=== PATIENT | female | born 1945 | race Caucasian/White ===

== ENCOUNTER 2021-01-03 10:25 | Outpatient (REF) | payer MEDICARE, SELFPAY ==
[2021-01-03 11:12] LABS: MANUAL DIFF FLAG NO
[2021-01-03 11:22] LABS: Basophils Percent Auto 0.6 % (0-2); Eosinophils Absolute Auto 0.1 X10*3/uL (0.0-0.4); Eosinophils Percent Auto 1.5 % (0-4); Hematocrit 41.6 % (37-47); Hemoglobin 13.8 g/dl (12.0-16.0); Imm Gran Abs Auto 0.02 X10*3/uL (0.00-0.03); Imm Gran Pct Auto 0.4 % (0.0-0.4); Lymphocytes Absolute Auto 0.9 X10*3/uL (1.2-4.9); Lymphocytes Percent Auto 18.9 % (20-40); Mean Corpuscular HGB Conc 33.2 g/dl (31.0-35.0); Mean Corpuscular Hemoglobin 31.5 pg (27.0-33.0); Mean Platelet Volume 11.3 fL (9.4-12.3); Monocytes Absolute Auto 0.4 X10*3/uL (0.1-1.2); Monocytes Percent Auto 8.1 % (2-11); Neutrophils Absolute Auto 3.4 X10*3/uL (2.0-8.3); Neutrophils Percent Auto 70.5 % (45-73); Platelet Count 158 X10*3/uL (160-400); Red Blood Count 4.38 X10*6/uL (4.20-5.50); Red Cell Distribution Width 12.5 % (11.0-16.0); White Blood Count 4.8 X10*3/uL (4.8-10.8)
[2021-01-03 12:16] LABS: Thyroid Stimulating Hormone 1.17 uIU/mL (0.32-4.0); Vitamin D 25-OH Total 31.3 ng/mL (>30)
[2021-01-03 12:25] LABS: Alanine Aminotransferase 19 U/L (0-31); Albumin Level 4.4 g/dL (3.5-5.0); Alkaline Phosphatase 66 U/L (39-117); Anion Gap 15 (12-20); Aspartate Amino Transferase 25 U/L (5-31); Bilirubin Total 0.8 mg/dL (0.0-1.0); Blood Urea Nitrogen 15 mg/dL (9-16); Calcium 9.3 mg/dL (8.4-10.2); Carbon Dioxide 26 mmol/L (22-29); Chloride 107 mmol/L (96-108); Cholesterol 197 mg/dL; Estimated Glomerular Filt Rate 45; Glucose Random 101 mg/dL (60-115); HDL Cholesterol 57 mg/dL; LDL Cholesterol Calculated 111 mg/dl; Potassium 4.7 mmol/L (3.3-5.1); Sodium 143 mmol/L (135-145); Triglycerides 147 mg/dL
[2021-01-03 12:35] LABS: Folate 16.4 ng/mL (> or = 4.0); Vitamin B12 948 pg/mL (200-900)
== END 2021-01-03 10:26 | disposition home or self-care (01) ==
LOC: HO.LAB 10:25
PROVIDERS: PCP Internal Medicine; Visit Provider Internal Medicine
DX: E78.00 Pure hypercholesterolemia, unspecified (principal)
CPT/HCPCS: 36415; 80053; 80061; 82306; 82607; 82746; 84443; 85025

== ENCOUNTER 2021-12-14 10:11 | Outpatient (REF) | payer MEDICARE, SELFPAY ==
[2021-12-14 10:43] LABS: MANUAL DIFF FLAG NO
[2021-12-14 10:58] LABS: Basophils Percent Auto 0.6 % (0-2); Eosinophils Absolute Auto 0.1 X10*3/uL (0.0-0.4); Eosinophils Percent Auto 1.9 % (0-4); Hematocrit 43.9 % (37.0-47.0); Hemoglobin 14.4 g/dl (12.0-16.0); Imm Gran Abs Auto 0.01 X10*3/uL (0.00-0.03); Imm Gran Pct Auto 0.2 % (0.0-0.4); Lymphocytes Absolute Auto 1.1 X10*3/uL (1.2-4.9); Lymphocytes Percent Auto 23.3 % (20-40); Mean Corpuscular HGB Conc 32.8 g/dl (31.0-35.0); Mean Corpuscular Volume 94.4 fL (80.0-98.0); Mean Platelet Volume 11.3 fL (9.4-12.3); Monocytes Absolute Auto 0.4 X10*3/uL (0.1-1.2); Monocytes Percent Auto 7.4 % (2-11); Neutrophils Absolute Auto 3.2 x10*3/uL (2.0-8.3); Neutrophils Percent Auto 66.6 % (45-73); Platelet Count 152 X10*3/uL (160-400); Red Blood Count 4.65 X10*6/uL (4.20-5.50); Red Cell Distribution Width 12.5 % (11.0-16.0); White Blood Count 4.8 X10*3/uL (4.8-10.8)
[2021-12-14 11:40] LABS: Estimated Average Glucose 123 mg/dL; Hemoglobin A1c % 5.9 %
[2021-12-14 12:01] LABS: Alanine Aminotransferase 22 U/L (0-31); Albumin Level 4.5 g/dL (3.5-5.0); Alkaline Phosphatase 66 U/L (39-117); Anion Gap 11 (12-20); Aspartate Amino Transferase 18 U/L (5-31); Bilirubin Total 0.8 mg/dL (0.0-1.0); Blood Urea Nitrogen 22 mg/dL (9-16); Calcium 10.2 mg/dL (8.4-10.2); Carbon Dioxide 30 mmol/L (22-29); Chloride 106 mmol/L (96-108); Cholesterol 206 mg/dL; Estimated Glomerular Filt Rate 43; Glucose Random 110 mg/dL (60-115); HDL Cholesterol 50 mg/dL; LDL Cholesterol Calculated 125 mg/dl; Magnesium 2.2 mg/dL (1.6-2.6); Potassium 5.3 mmol/L (3.3-5.1); Sodium 142 mmol/L (135-145); Triglycerides 159 mg/dL
[2021-12-14 12:26] LABS: Folate 16.6 ng/mL (> or = 4.0); Thyroid Stimulating Hormone 1.74 uIU/mL (0.32-4.0); Vitamin B12 581 pg/mL (200-900); Vitamin D 25-OH Total 36.2 ng/mL (>30)
== END 2021-12-14 10:12 | disposition home or self-care (01) ==
LOC: HO.LAB 10:11
PROVIDERS: PCP Internal Medicine; Visit Provider Internal Medicine
DX: E78.00 Pure hypercholesterolemia, unspecified (principal); R73.02 Impaired glucose tolerance (oral)
CPT/HCPCS: 36415; 80053; 80061; 82306; 82607; 82746; 83036; 83735; 84439; 84443; 85025

== ENCOUNTER 2021-12-20 12:56 | Outpatient (REF) | payer MEDICARE, SELFPAY ==
--- NOTE | ~2021-12-20 | MM_ITS ---
EXAMINATION: MM SCREENING DIGITAL BREAST TOMOSYNTHESIS, BILATERAL CLINICAL INFORMATION: Screening. Asymptomatic. The lifetime risk of breast cancer based on the Tyrer-Cuzick Model is 2%. COMPARISON: Mammography: 06/17/2020 and studies dating back to 09/18/2012 TECHNIQUE: Digital mammography is performed in craniocaudal and mediolateral oblique views along with computer-aided detection (CAD). Digital breast tomosynthesis is performed in implant-displaced craniocaudal and implant-displaced mediolateral oblique views along with computer-aided detection (CAD). Synthesized 2D images are generated from the tomosynthesis. FINDINGS: There are scattered areas of fibroglandular density (ACR BI-RADS breast composition Category b). The patient is status post bilateral silicon implant placement. Within the superior aspect of the left breast on mediolateral oblique view only, there is a 5 mm density which is more prominent than on prior studies and for which spot compression view and possible ultrasound is recommended. There remains lobular contour to the breast implants with some capsular calcification present. The anteromedial lobulation is larger than on prior study. Possible extracapsular rupture not excluded. MM/MM tomosynthesis screen imp BI IMPRESSION: Left breast density for further evaluation with spot compression view and possible ultrasound. Contour lobulation of breast implants as described. ASSESSMENT: BI-RADS 0: Incomplete - Need Additional Imaging Evaluation RECOMMENDATION: 1. Additional views of the left breast. 2. Targeted ultrasound if warranted after review of the additional views. 3. Radiology department staff will contact the patient for additional imaging. This patient's information was entered into a reminder system with a target due date for their next mammogram.
== END 2021-12-20 12:57 | disposition home or self-care (01) ==
LOC: HO.MAMMO 12:56
PROVIDERS: PCP Internal Medicine; Visit Provider Internal Medicine
DX: Z12.31 Encounter for screening mammogram for malignant neoplasm of breast (principal)
CPT/HCPCS: 77063; 77067

== ENCOUNTER 2022-01-03 08:55 | Outpatient (REF) | payer MEDICARE, SELFPAY ==
--- NOTE | ~2022-01-03 | MM_ITS ---
EXAMINATION: MM DIAGNOSTIC DIGITAL BREAST TOMOSYNTHESIS, LEFT US DIAGNOSTIC ULTRASOUND BREAST, LEFT CLINICAL INFORMATION: Recall from screening for question of asymmetric density upper left breast on implant displaced MLO view. Implants present for over 30 years. COMPARISON: Mammography: 12/20/2021 and prior exams dating back to 02/22/2010. TECHNIQUE: Digital breast tomosynthesis is performed. 2D images are generated from the tomosynthesis. The following views are obtained: Implant displaced left spot MLO x2, implant displaced left ML. Ultrasound left breast is targeted to the upper breast using grayscale imaging and color Doppler. Additional scanning also performed anteriorly over the implant. Grayscale imaging and color Doppler are performed without and with harmonics. FINDINGS: There are scattered areas of fibroglandular density (ACR BI-RADS breast composition Category b). The additional views show fibroglandular density mid upper breast similar to some of the prior exams given the variability from year to year based on positioning. There is no definite developing density or interval new mass or architectural change in the area for recall. Ultrasound demonstrates nonspecific small smooth oval isoechoic nodule overlying implant 1:00 position 7 cm from nipple and measuring 0.7 x 0.4 x 0.6 cm. The shape does not appear to be consistent with the finding for recall. This may represent a small fibroadenoma. Otherwise, there is no cystic or solid mass and no architectural abnormality. No free silicone appreciated by ultrasound. Results are discussed with the patient at time of visit. MM/MM tomosynthesis added views L IMPRESSION: -Parenchymal asymmetry upper left breast similar to prior remote mammography. No definite developing density or interval change. -Benign-appearing circumscribed small oval nodule overlying implant 1:00 position measuring under 1 cm, possibly small fibroadenoma. ASSESSMENT: BI-RADS 3: Probably Benign RECOMMENDATION: 1. Diagnostic left mammography and targeted left breast ultrasound in 6 months. 2. Comment: The recent screening mammography also notes increased lobulated contour left anterior medial implant. Possibility of extracapsular rupture cannot be excluded. If clinically indicated, implant integrity could be further assessed with breast MRI. This patient's information was entered into a reminder system with a target due date for their next mammogram.
== END 2022-01-03 08:56 | disposition home or self-care (01) ==
LOC: HO.MAMMO 08:55
PROVIDERS: PCP Internal Medicine; Visit Provider Internal Medicine
DX: R92.2 Inconclusive mammogram (principal)
CPT/HCPCS: 76642; 77061; 77065

== ENCOUNTER 2022-01-04 16:19 | Emergency (ER) | payer MEDICARE, SELFPAY ==
--- NOTE | ~2022-01-04 | CT_ITS ---
EXAMINATION: CT ABDOMEN AND PELVIS WITH CONTRAST CLINICAL INFORMATION: Right lower quadrant abdominal pain with rebound tenderness. Rule out appendicitis. COMPARISON: CT from 04/05/2007 TECHNIQUE: Multidetector volumetric images were obtained from the superior aspect of the liver through the pubic symphysis following administration 85 mL of Omnipaque 350 intravenous contrast. Sagittal and coronal reformatted images were obtained on the technologist's workstation. Oral contrast: No This CT examination was performed using dose optimization techniques as appropriate, variously including the following: *Automated exposure control *Adjustment of mA and/or kV according to patient size (this includes techniques or standardized protocols for targeted exams where dose is matched to indication/reason for exam; i.e. extremities or head) *Use of iterative reconstruction technique DLP: 505 mGy-cm FINDINGS: LUNG BASES: The lung bases are clear. Partially visualized left-sided breast implant with peripheral calcification. LIVER, GALLBLADDER, AND BILIARY TREE: The liver is normal in size, shape, and attenuation. No focal hepatic lesion or biliary ductal dilatation is present. The gallbladder is unremarkable with no evidence of radiopaque gallstones, gallbladder wall thickening, or obvious pericholecystic inflammatory changes. PANCREAS: Unremarkable. SPLEEN: Unremarkable. ADRENAL GLANDS: Unremarkable. KIDNEYS AND URETERS: The kidneys are normal in size, shape, and attenuation. No hydronephrosis, hydroureter, or calculi seen. No perinephric stranding. BLADDER: Unremarkable. GASTROINTESTINAL TRACT: Decompressed stomach. Possible small diverticulum at the gastric fundus. Normal caliber of the small bowel. There is no obstruction. Distal colonic anastomosis noted. Scattered colonic diverticulosis. There is a prominent diverticulum of the ascending colon. Focal wall thickening seen with surrounding inflammatory changes of the fat. There is a normal appendix. No free air. No fluid collection. ABDOMINAL WALL: No significant hernia is appreciated. LYMPH NODES: Normal. VASCULAR: Normal caliber aorta with mild atherosclerotic calcification. PELVIC VISCERA: No acute or suspicious osseous abnormality. Degenerative changes throughout the spine. Vacuum disc phenomenon at multiple levels. OSSEOUS STRUCTURES: No acute or suspicious osseous abnormality. Degenerative changes of the spine. CT/CT abdomen pelvis w con IMPRESSION: Acute diverticulitis involving the ascending colon. No free air or fluid collection. Normal appendix. Fleischner guidelines were followed.
[2022-01-04 17:24] VITALS: BP 135/78; PULSE 92; RESP 18; TEMP 37.2; O2SAT 97; BMI 21.1
[2022-01-04 17:44] LABS: MANUAL DIFF FLAG NO
[2022-01-04 17:46] LABS: Basophils Percent Auto 0.2 % (0-2); Eosinophils Absolute Auto 0.1 X10*3/uL (0.0-0.4); Eosinophils Percent Auto 0.5 % (0-4); Hemoglobin 13.2 g/dl (12.0-16.0); Imm Gran Abs Auto 0.02 X10*3/uL (0.00-0.03); Imm Gran Pct Auto 0.2 % (0.0-0.4); Lymphocytes Percent Auto 10.8 % (20-40); Mean Corpuscular Hemoglobin 30.8 pg (27.0-33.0); Mean Corpuscular Volume 93.5 fL (80.0-98.0); Monocytes Absolute Auto 0.7 X10*3/uL (0.1-1.2); Monocytes Percent Auto 6.9 % (2-11); Neutrophils Absolute Auto 7.8 x10*3/uL (2.0-8.3); Neutrophils Percent Auto 81.4 % (45-73); Platelet Count 143 X10*3/uL (160-400); Red Blood Count 4.28 X10*6/uL (4.20-5.50); Red Cell Distribution Width 12.8 % (11.0-16.0); White Blood Count 9.6 X10*3/uL (4.8-10.8)
--- NOTE | 2022-01-04 18:02 | ED_ITS ---
HPI - Abdominal Pain General Chief Complaint: Abdominal Pain <SHELLEY Roque Last Filed: 01/04/22 18:50> Stated Complaint: abd pain/fever <SHELLEY Roque Last Filed: 01/04/22 18:50> Time Seen by Provider: 01/04/22 17:52 <SHELLEY Roque Last Filed: 01/04/22 18:50> Source: patient <SHELLEY Roque Last Filed: 01/04/22 18:50> Mode of arrival: ambulatory <SHELLEY Roque Last Filed: 01/04/22 18:50> Limitations: no limitations <SHELLEY Roque Last Filed: 01/04/22 18:50> History of Present Illness HPI narrative: 76-year-old female with a past medical history of anxiety, diverticulosis s/p colectomy, HLD, OA, presenting to the ED complaining of RLQ abdominal pain x2 days. States pain worse with palpation, movement, and deep breathing. Also reports low-grade fever to 100 today. Denies chills, nausea, vomiting, diarrhea, dysuria, hematuria, flank pain <SHELLEY Roque Last Filed: 01/04/22 18:50> MD elicited complaint: abdominal pain <SHELELY Roque Last Filed: 01/04/22 18:50> Pertinent past history: none <SHELLEY Roque Last Filed: 01/04/22 18:50> Onset (ago): day(s) <SHELLEY Roque Last Filed: 01/04/22 18:50> Related Data Home Medications: Home Medications Medication Instructions Recorded Confirmed cholecalciferol (vitamin D3) 25 25 mcg PO DAILY 07/18/20 12/25/21 mcg (1,000 unit) capsule coenzyme Q10 200 mg capsule (Co 200 mg PO DAILY 07/18/20 12/25/21 Q-10) lactobacillus combination no.4 3 3,000 mmu cells PO DAILY 06/26/21 12/25/21 billion cell capsule (Probiotic) magnesium oxide,aspartate,citr mg PO 06/26/21 12/25/21 Previous Rx's Medication Instructions Recorded alprazolam 0.25 mg tablet (Xanax) 0.25 mg PO DAILY PRN 90 Days #60 12/25/21 tab pravastatin 10 mg tablet 10 mg PO DAILY #90 cap 12/25/21 levofloxacin 750 mg tablet 750 mg PO DAILY 7 Days #7 tab 01/04/22 metronidazole 500 mg tablet 500 mg PO TID 7 Days #21 tab 01/04/22 <SHELLEY Roque - Last Filed: 01/04/22 18:50> Allergies/Adverse Reactions: Allergies Allergy/AdvReac Type Severity Reaction Status Date / Time atorvastatin [Lipitor] Allergy Unknown Unknown Verified 12/25/21 11:03 clarithromycin [From Biaxin] Allergy Unknown Unknown Verified 12/25/21 11:03 doxycycline Allergy Unknown rash, Verified 12/25/21 11:03 vision changes erythromycin base Allergy Unknown Unknown Verified 12/25/21 11:03 influenza virus vaccine tvs Allergy Unknown vomitting Verified 12/25/21 11:03 [id number](65 years up) [From Fluzone High-Dose 2017- (PF)] moxifloxacin [Avelox] Allergy Unknown Unknown Verified 12/25/21 11:03 omeprazole [Prilosec] Allergy Unknown Unknown Verified 12/25/21 11:03 scalp rx Penicillins Allergy Unknown UNKNOWN Verified 12/25/21 11:03 simvastatin Allergy Unknown Unknown Verified 12/25/21 11:03 Sulfa (Sulfonamide Allergy Unknown SWELLING Verified 12/25/21 11:03 Antibiotics) <SHELLEY Roque - Last Filed: 01/04/22 18:50> Review of Systems Review of Systems Constitutional: No Fever, No Chills, No Fatigue, No Malaise ENT/Mouth: No Ear Pain, No Nasal Congestion, No sore throat, No Rhinorrhea, No Swallowing Difficulty Eyes: No Eye Pain, No Swelling, No Redness Cardiovascular: No Chest Pain, No SOB, No Edema, No Palpitations Respiratory: No Cough, No Sputum, No Dyspnea Gastrointestinal: No Nausea, No Vomiting, No Diarrhea, No Constipation, + Abdominal pain Genitourinary: No irregular bleeding, No Dysuria, No Urinary Frequency, No Hematuria, No Urgency, No Flank Pain, No Urinary Flow Changes, No Hesitancy Musculoskeletal: No joint pain, No Myalgias, No Joint Swelling Skin: No Skin Lesions, No rash Neuro: No Weakness, No Numbness, No Loss of Consciousness, No Dizziness, No Headache <SHELLEY Roque - Last Filed: 01/04/22 18:50> Yes all other systems are reviewed and are negative <SHELLEY Roque - Last Filed: 01/04/22 18:50> [facility] Past Medical History Attestation statement: The following information was validated with the patient. <SHELLEY Roque - Last Filed: 01/04/22 18:50> Medical History: Medical History Anxiety Diverticulosis Elevated blood pressure reading Hypercholesterolemia Lumbar disc herniation Osteoarthritis of right hip <SHELLEY Roque - Last Filed: 01/04/22 18:50> Surgical History: Surgical History History of colectomy History of right hip replacement Hx of breast implants, bilateral Melanoma <SHELLEY Roque - Last Filed: 01/04/22 18:50> Family History Family History: Family History Father CVD (cardiovascular disease) Mother CVD (cardiovascular disease) Diabetes <SHELLEY Roque - Last Filed: 01/04/22 18:50> Social History Social History: Social History Housing: House Alcohol intake: current Alcohol intake frequency: a few times a month Alcohol type: wine Patient Tobacco Use Status: Former Tobacco user Tobacco use type: Cigarette Years Smoked: teenager e-Cigarette/Vaping Use: Never Used Second Hand Smoke Exposure: No Advance Directives: No Advance Directives Information Provided: No Current occupational status: retired Cognitive needs: No Hearing needs: No Vision needs: No <SHELLEY Roque Last Filed: 01/04/22 18:50> Physical Exam ED Vital Signs: Vital Signs - 24 hr 01/04/22 17:24 01/04/22 19:53 01/04/22 21:37 Temperature 99.0 F 98.4 F 98.2 F Pulse Rate 92 67 78 Respiratory Rate 18 16 16 Blood Pressure 135/78 145/80 H 135/69 Pulse Oximetry 97 98 98 01/04/22 22:00 Temperature Pulse Rate 76 Respiratory Rate 16 Blood Pressure 124/70 Pulse Oximetry 98 BMI result Body Mass Index 21.1 <SHELLEY Roque - Last Filed: 01/04/22 18:50> Vital Signs - 24 hr 01/04/22 17:24 01/04/22 19:53 01/04/22 21:37 Temperature 99.0 F 98.4 F 98.2 F Pulse Rate 92 67 78 Respiratory Rate 18 16 16 Blood Pressure 135/78 145/80 H 135/69 Pulse Oximetry 97 98 98 01/04/22 22:00 Temperature Pulse Rate 76 Respiratory Rate 16 Blood Pressure 124/70 Pulse Oximetry 98 BMI result Body Mass Index 21.1 <SHELLEY Garcia - Last Filed: 01/04/22 22:47> Const General: cooperative, healthy appearing, no acute distress, alert and awake <SHELLEY Roque - Last Filed: 01/04/22 18:50> Orientation/consciousness: patient oriented x3 <SHELLEY Roque - Last Filed: 01/04/22 18:50> Limitations: no limitations <SHELLEY Roque - Last Filed: 01/04/22 18:50> HENMT Head: Yes normal to inspection <SHELLEY Roque Last Filed: 01/04/22 18:50> Ears: hearing grossly normal bilaterally <SHELLEY Roque - Last Filed: 01/04/22 18:50> General nose exam: Normal external nose present <SHELLEY Roque Last Filed: 01/04/22 18:50> Face and sinus: Yes normal facial exam <SHELLEY Roque - Last Filed: 01/04/22 18:50> Eyes General: appearance normal, both eyes and all related structures <SHELLEY Roque Last Filed: 01/04/22 18:50> EOM: EOMs intact bilaterally <SHELLEY Roque - Last Filed: 01/04/22 18:50> Neck Neck: Yes normal visual inspection and Yes no meningeal signs <SHELLEY Roque Last Filed: 01/04/22 18:50> Resp Effort & Inspection: normal respiratory effort and no respiratory distress <SHELLEY Roque - Last Filed: 01/04/22 18:50> Cardio Rate: regular rate <SHELLEY Roque - Last Filed: 01/04/22 18:50> GI Inspection: Yes normal to inspection <SHELLEY Roque - Last Filed: 01/04/22 18:50> Palpation (GI): Soft to palpation, Tenderness to palpation present (GI) in the RLQ and with rebound tenderness, no guarding and not rigid <SHELLEY Roque - Last Filed: 01/04/22 18:50> General: Yes no CVA tenderness <Damaris Kern PA - Last Filed: 01/04/22 18:50> Back/Spine/Pelvis Back: no CVA tenderness <SHELLEY Roque - Last Filed: 01/04/22 18:50> Skin Rashes: no rashes <SHELLEY Roque - Last Filed: 01/04/22 18:50> Wounds: no wounds <SHELLEY Roque - Last Filed: 01/04/22 18:50> Neuro General: patient oriented x3 and no meningeal signs <SHELLEY Roque - Last Filed: 01/04/22 18:50> Gait exam (Neuro): Normal gait present <SHELLEY Roque - Last Filed: 01/04/22 18:50> Extrem General: Yes normal to inspection <SHELLEY Roque - Last Filed: 01/04/22 18:50> Course Course Course Narrative: -no leukocytosis. BUN minimally elevated at 1.3. Lab otherwise at patient's baseline. -1900-- ED care transferred to SHELLEY Douglas pending remaining labs, CT and dispo per results <SHELLEY Roque - Last Filed: 01/04/22 18:50> Reevaluation(s) Reevaluation #1: CBC appears to be around patient's baseline. Chemistry with no acute electrolyte abnormalities. BUN slightly elevated however tolerating having fluids by mouth. Urine with leukocyte esterases however patient not having urinary symptoms. At this time will not treat for UTI. Patient is COVID negative. CT of the abdomen and pelvis shows acute diverticulitis involving the ascending colon pre areas normal appendix. No free air fluid collection. Patient will be treated with outpatient antibiotics if she tolerates p.o. fluids. <SHELLEY Garcia - Last Filed: 01/04/22 22:47> Time: 22:23 <SHELLEY Garcia - Last Filed: 01/04/22 22:47> Reevaluation #2: Patient tolerating clear liquids. Educated patient on her diagnosis and treatment plan. She tells me this feels like the last time that she had diver ticulitis. At this time the plan is discharge patient home with Cipro 500 mg p.o. b.i.d. and Flagyl 500 mg p.o. t.i.d.. Patient will follow-up with her outpatient provider I have also given her information for GI specialist. At this time patient will be discharged home. Recent signs and symptoms outlined on discharge. Comfortable with plan <SHELLEY Garcia - Last Filed: 01/04/22 22:47> Time: 22:28 <SHELLEY Garcia - Last Filed: 01/04/22 22:47> MDM - Abdominal Pain MDM Narrative Medical decision making narrative: 76-year-old female with a past medical history of anxiety, diverticulosis s/p colectomy, HLD, OA, presenting to the ED complaining of RLQ abdominal pain x 2 days. States pain worse with palpation, movement, and deep breathing. On exam low-grade temperature of 100 degrees, NAD/nontoxic, abdomen soft with RLQ tenderness and rebound, no guarding, no CVA tenderness. Concern for acute appendicitis vs diverticulitis. Lower concern for renal stone/pyelo Plan: Labs, lactic/blood cultures, UA, CT abdomen/pelvis, IVF. Patient refusing pain medication at this time <SHELLEY Roque Last Filed: 01/04/22 18:50> Differential Diagnosis Differential diagnosis: Likely abdominal pain, acute appendicitis, constipation, diverticulitis and renal colic <SHELLEY Roque Last Filed: 01/04/22 18:50> Medical Records Attestation: I reviewed the patient's medical records. <SHELLEY Roque Last Filed: 01/04/22 18:50> Lab Data Attestation: I reviewed the patient's lab results. <SHELLEY Roque - Last Filed: 01/04/22 18:50> Result diagrams: : 01/04/22 17:32 01/04/22 17:32 <SHELLEY Roque - Last Filed: 01/04/22 18:50> Labs: Lab Results 01/04/22 01/04/22 01/04/22 Range/Units 17:32 17:32 18:59 WBC 9.6 (4.8-10.8) X10*3/uL RBC 4.28 (4.20-5.50) X10*6/uL Hgb 13.2 (12.0-16.0) g/dl Hct 40.0 (37.0-47.0) % MCV 93.5 (80.0-98.0) fL MCH 30.8 (27.0-33.0) pg MCHC 33.0 (31.0-35.0) g/dl RDW 12.8 (11.0-16.0) % Plt Count 143 L (160-400) X10*3/uL MPV 11.0 (9.4-12.3) fL Immature Gran % (Auto) 0.2 (0.0-0.4) % Neut % (Auto) 81.4 H (45-73) % Lymph % (Auto) 10.8 L (20-40) % [place] % (Auto) 6.9 (2-11) % Eos % (Auto) 0.5 (0-4) % Baso % (Auto) 0.2 (0-2) % Lymph # (Auto) 1.0 L (1.2-4.9) X10*3/uL [place] # (Auto) 0.7 (0.1-1.2) X10*3/uL Eos # (Auto) 0.1 (0.0-0.4) X10*3/uL Baso # (Auto) 0.0 (0.0-0.2) X10*3/uL Abs Immat Gran (auto) 0.02 (0.00-0.03) X10*3/uL Absolute Neuts (auto) 7.8 (2.0-8.3) x10*3/uL Absolute Nucleated RBC 0.000 (0.0-0.012) X10*3/uL Nucleated RBC % (auto) 0.0 (0.0-0.2) /100WBC Sodium 139 (135-145) mmol/L Potassium 4.6 (3.3-5.1) mmol/L Chloride 104 (96-108) mmol/L Carbon Dioxide 23 (22-29) mmol/L Anion Gap 17 (12-20) BUN 20 H (9-16) mg/dL Creatinine 1.18 (0.5-1.4) mg/dL Estim Creat Clear Calc 37.9 Estimated GFR 44 Random Glucose 110 (60-115) mg/dL Lactic Acid 1.0 (0.5-2.0) mmol/L Calcium 9.8 (8.4-10.2) mg/dL Magnesium 2.2 (1.6-2.6) mg/dL Total Bilirubin 1.3 H (0.0-1.0) mg/dL Direct Bilirubin 0.4 (0.0-0.5) mg/dL AST 15 (5-31) U/L ALT 14 (0-31) U/L Alkaline Phosphatase 65 (39-117) U/L Total Protein 6.8 (6.5-8.0) g/dL Albumin 4.3 (3.5-5.0) g/dL Lipase 45 (8-78) U/L Urine Color Urine Appearance Urine pH (5.0-8.0) Ur Specific [place] (1.005-1.025) Urine Protein (NEG-TRACE) MG/DL Urine Glucose (UA) (NEG) MG/DL Urine Ketones (NEG) MG/DL Urine Blood (NEG) Urine Nitrite (NEG) Ur Leukocyte Esterase (NEG) Urine RBC (0) /HPF Urine WBC (0-4) /HPF Ur Squamous Epith Cells /LPF Urine Bacteria /LPF COVID-19 (ENA) (Negative) COVID-19 Clin Com 01/04/22 01/04/22 Range/Units 18:59 19:19 WBC (4.8-10.8) X10*3/uL RBC (4.20-5.50) X10*6/uL Hgb (12.0-16.0) g/dl Hct (37.0-47.0) % MCV (80.0-98.0) fL MCH (27.0-33.0) pg MCHC (31.0-35.0) g/dl RDW (11.0-16.0) % Plt Count (160-400) X10*3/uL MPV (9.4-12.3) fL Immature Gran % (Auto) (0.0-0.4) % Neut % (Auto) (45-73) % Lymph % (Auto) (20-40) % [place] % (Auto) (2-11) % Eos % (Auto) (0-4) % Baso % (Auto) (0-2) % Lymph # (Auto) (1.2-4.9) X10*3/uL [place] # (Auto) (0.1-1.2) X10*3/uL Eos # (Auto) (0.0-0.4) X10*3/uL Baso # (Auto) (0.0-0.2) X10*3/uL Abs Immat Gran (auto) (0.00-0.03) X10*3/uL Absolute Neuts (auto) (2.0-8.3) x10*3/uL Absolute Nucleated RBC (0.0-0.012) X10*3/uL Nucleated RBC % (auto) (0.0-0.2) /100WBC Sodium (135-145) mmol/L Potassium (3.3-5.1) mmol/L Chloride (96-108) mmol/L Carbon Dioxide (22-29) mmol/L Anion Gap (12-20) BUN (9-16) mg/dL Creatinine (0.5-1.4) mg/dL Estim Creat Clear Calc Estimated GFR Random Glucose (60-115) mg/dL Lactic Acid (0.5-2.0) mmol/L Calcium (8.4-10.2) mg/dL Magnesium (1.6-2.6) mg/dL Total Bilirubin (0.0-1.0) mg/dL Direct Bilirubin (0.0-0.5) mg/dL AST (5-31) U/L ALT (0-31) U/L Alkaline Phosphatase (39-117) U/L Total Protein (6.5-8.0) g/dL Albumin (3.5-5.0) g/dL Lipase (8-78) U/L Urine Color YELLOW Urine Appearance CLEAR Urine pH 6.0 (5.0-8.0) Ur Specific [place] <= 1.005 (1.005-1.025) Urine Protein NEG (NEG-TRACE) MG/DL Urine Glucose (UA) NEG (NEG) MG/DL Urine Ketones NEG (NEG) MG/DL Urine Blood NEG (NEG) Urine Nitrite NEG (NEG) Ur Leukocyte Esterase 1+ H (NEG) Urine RBC 0-2 (0) /HPF Urine WBC 0-2 (0-4) /HPF Ur Squamous Epith Cells NONE /LPF Urine Bacteria NONE /LPF COVID-19 (ENA) Negative (Negative) COVID-19 Clin Com See Note <SHELLEY Roque - Last Filed: 01/04/22 18:50> Lab Results 01/04/22 01/04/22 01/04/22 Range/Units 17:32 17:32 18:59 WBC 9.6 (4.8-10.8) X10*3/uL RBC 4.28 (4.20-5.50) X10*6/uL Hgb 13.2 (12.0-16.0) g/dl Hct 40.0 (37.0-47.0) % MCV 93.5 (80.0-98.0) fL MCH 30.8 (27.0-33.0) pg MCHC 33.0 (31.0-35.0) g/dl RDW 12.8 (11.0-16.0) % Plt Count 143 L (160-400) X10*3/uL MPV 11.0 (9.4-12.3) fL Immature Gran % (Auto) 0.2 (0.0-0.4) % Neut % (Auto) 81.4 H (45-73) % Lymph % (Auto) 10.8 L (20-40) % [place] % (Auto) 6.9 (2-11) % Eos % (Auto) 0.5 (0-4) % Baso % (Auto) 0.2 (0-2) % Lymph # (Auto) 1.0 L (1.2-4.9) X10*3/uL [place] # (Auto) 0.7 (0.1-1.2) X10*3/uL Eos # (Auto) 0.1 (0.0-0.4) X10*3/uL Baso # (Auto) 0.0 (0.0-0.2) X10*3/uL Abs Immat Gran (auto) 0.02 (0.00-0.03) X10*3/uL Absolute Neuts (auto) 7.8 (2.0-8.3) x10*3/uL Absolute Nucleated RBC 0.000 (0.0-0.012) X10*3/uL Nucleated RBC % (auto) 0.0 (0.0-0.2) /100WBC Sodium 139 (135-145) mmol/L Potassium 4.6 (3.3-5.1) mmol/L Chloride 104 (96-108) mmol/L Carbon Dioxide 23 (22-29) mmol/L Anion Gap 17 (12-20) BUN 20 H (9-16) mg/dL Creatinine 1.18 (0.5-1.4) mg/dL Estim Creat Clear Calc 37.9 Estimated GFR 44 Random Glucose 110 (60-115) mg/dL Lactic Acid 1.0 (0.5-2.0) mmol/L Calcium 9.8 (8.4-10.2) mg/dL Magnesium 2.2 (1.6-2.6) mg/dL Total Bilirubin 1.3 H (0.0-1.0) mg/dL Direct Bilirubin 0.4 (0.0-0.5) mg/dL AST 15 (5-31) U/L ALT 14 (0-31) U/L Alkaline Phosphatase 65 (39-117) U/L Total Protein 6.8 (6.5-8.0) g/dL Albumin 4.3 (3.5-5.0) g/dL Lipase 45 (8-78) U/L Urine Color Urine Appearance Urine pH (5.0-8.0) Ur Specific [place] (1.005-1.025) Urine Protein (NEG-TRACE) MG/DL Urine Glucose (UA) (NEG) MG/DL Urine Ketones (NEG) MG/DL Urine Blood (NEG) Urine Nitrite (NEG) Ur Leukocyte Esterase (NEG) Urine RBC (0) /HPF Urine WBC (0-4) /HPF Ur Squamous Epith Cells /LPF Urine Bacteria /LPF COVID-19 (ENA) (Negative) COVID-19 Clin Com 01/04/22 01/04/22 Range/Units 18:59 19:19 WBC (4.8-10.8) X10*3/uL RBC (4.20-5.50) X10*6/uL Hgb (12.0-16.0) g/dl Hct (37.0-47.0) % MCV (80.0-98.0) fL MCH (27.0-33.0) pg MCHC (31.0-35.0) g/dl RDW (11.0-16.0) % Plt Count (160-400) X10*3/uL MPV (9.4-12.3) fL Immature Gran % (Auto) (0.0-0.4) % Neut % (Auto) (45-73) % Lymph % (Auto) (20-40) % [place] % (Auto) (2-11) % Eos % (Auto) (0-4) % Baso % (Auto) (0-2) % Lymph # (Auto) (1.2-4.9) X10*3/uL [place] # (Auto) (0.1-1.2) X10*3/uL Eos # (Auto) (0.0-0.4) X10*3/uL Baso # (Auto) (0.0-0.2) X10*3/uL Abs Immat Gran (auto) (0.00-0.03) X10*3/uL Absolute Neuts (auto) (2.0-8.3) x10*3/uL Absolute Nucleated RBC (0.0-0.012) X10*3/uL Nucleated RBC % (auto) (0.0-0.2) /100WBC Sodium (135-145) mmol/L Potassium (3.3-5.1) mmol/L Chloride (96-108) mmol/L Carbon Dioxide (22-29) mmol/L Anion Gap (12-20) BUN (9-16) mg/dL Creatinine (0.5-1.4) mg/dL Estim Creat Clear Calc Estimated GFR Random Glucose (60-115) mg/dL Lactic Acid (0.5-2.0) mmol/L Calcium (8.4-10.2) mg/dL Magnesium (1.6-2.6) mg/dL Total Bilirubin (0.0-1.0) mg/dL Direct Bilirubin (0.0-0.5) mg/dL AST (5-31) U/L ALT (0-31) U/L Alkaline Phosphatase (39-117) U/L Total Protein (6.5-8.0) g/dL Albumin (3.5-5.0) g/dL Lipase (8-78) U/L Urine Color YELLOW Urine Appearance CLEAR Urine pH 6.0 (5.0-8.0) Ur Specific [place] <= 1.005 (1.005-1.025) Urine Protein NEG (NEG-TRACE) MG/DL Urine Glucose (UA) NEG (NEG) MG/DL Urine Ketones NEG (NEG) MG/DL Urine Blood NEG (NEG) Urine Nitrite NEG (NEG) Ur Leukocyte Esterase 1+ H (NEG) Urine RBC 0-2 (0) /HPF Urine WBC 0-2 (0-4) /HPF Ur Squamous Epith Cells NONE /LPF Urine Bacteria NONE /LPF COVID-19 (ENA) Negative (Negative) COVID-19 Clin Com See Note <SHELLEY Garcia - Last Filed: 01/04/22 22:47> Discharge Plan Discharge Clinical Impression: Abdominal pain, Diverticulitis <SHELLEY Roque - Last Filed: 01/04/22 18:50> Patient Disposition: Home, Self-Care <SHELLEY Roque Last Filed: 01/04/22 18:50> Instructions: Abdominal Pain (ED), Diverticulitis Diet (ED), Diverticulitis (ED) <SHELLEY Roque Last Filed: 01/04/22 18:50> Additional Instructions: Take your medications as prescribed. If you were prescribed antibiotics today, it is important that you take your medication to their entirety, do not skip any doses, do not finish them early. Follow-up with your primary care provider this week. Return to the emergency department with new or worsening symptoms. Such as fevers, chills, chest pain, shortness of breath, nausea, vomiting, dizziness, headache, vision changes, lethargy, rectal bleeding, vomiting blood, weakness, dizziness In case of emergency call 911 <SHELLEY Roque - Last Filed: 01/04/22 18:50> Prescriptions: New metronidazole 500 mg tablet 500 mg PO TID 7 Days Qty: 21 0RF levofloxacin 750 mg tablet 750 mg PO DAILY 7 Days Qty: 7 0RF No Action Probiotic 3 billion cell capsule 3,000 mmu cells PO DAILY 0RF Rx Instructions: administer with a meal magnesium oxide,aspartate,citr 400 mg magnesium capsule PO 0RF coenzyme Q10 [Co Q-10] 200 mg capsule 200 mg PO DAILY 0RF cholecalciferol (vitamin D3) 25 mcg (1,000 unit) capsule 25 mcg PO DAILY 0RF alprazolam [Xanax] 0.25 mg tablet 0.25 mg PO DAILY PRN (Reason: anxiety) 90 Days Qty: 60 0RF pravastatin 10 mg tablet 10 mg PO DAILY Qty: 90 3RF <SHELLEY Roque - Last Filed: 01/04/22 18:50> Referrals: Po,Tim Iyer MD [Primary Care Provider] - 2 days Meliton Haney [Physician] - 2 days <SHELLEY Roque - Last Filed: 01/04/22 18:50> Stand Alone Forms: Work/School Release <SHELLEY Roque - Last Filed: 01/04/22 18:50>
[2022-01-04 18:07] LABS: Alanine Aminotransferase 14 U/L (0-31); Albumin Level 4.3 g/dL (3.5-5.0); Alkaline Phosphatase 65 U/L (39-117); Anion Gap 17 (12-20); Aspartate Amino Transferase 15 U/L (5-31); Bilirubin Direct 0.4 mg/dL (0.0-0.5); Bilirubin Total 1.3 mg/dL (0.0-1.0); Blood Urea Nitrogen 20 mg/dL (9-16); Calcium 9.8 mg/dL (8.4-10.2); Carbon Dioxide 23 mmol/L (22-29); Chloride 104 mmol/L (96-108); Creatinine Clr Calc Pharmacy 37.9; Estimated Glomerular Filt Rate 44; Glucose Random 110 mg/dL (60-115); Lipase 45 U/L (8-78); Potassium 4.6 mmol/L (3.3-5.1); Sodium 139 mmol/L (135-145); Total Protein 6.8 g/dL (6.5-8.0)
[2022-01-04 18:28] LABS: Magnesium 2.2 mg/dL (1.6-2.6)
[2022-01-04 19:29] LABS: COVID-19 Test Negative (Negative)
[2022-01-04 19:36] LABS: Appearance Urine CLEAR; Color Urine YELLOW; Glucose Urine UA NEG (NEG); Leukocyte Esterase Urine 1+ (NEG); Nitrite Urine NEG (NEG); Specific Gravity - Urine <= 1.005 (1.005-1.025); UACC Culture Trigger YES; Urine Blood NEG (NEG); Urine Ketones NEG (NEG); Urine Protein NEG (NEG-TRACE)
[2022-01-04 19:47] LABS: RBC Urine 0-2 /HPF (0); WBC Urine 0-2 /HPF (0-4)
[2022-01-04 19:53] VITALS: BP 145/80; PULSE 67; RESP 16; TEMP 36.9; O2SAT 98
[2022-01-04] MEDS: 0.9 % Sodium Chloride 1,000 ML 999 ML IV (20:29)
[2022-01-04] MEDS: iohexoL 350 MG/ML 100 ML INFUS..BTL IV (20:43)
[2022-01-04 21:37] VITALS: BP 135/69; PULSE 78; RESP 16; TEMP 36.8; O2SAT 98
[2022-01-04 22:00] VITALS: BP 124/70; PULSE 76; RESP 16; O2SAT 98
[2022-01-04] MEDS: levoFLOXacin 750 MG TABLET PO (23:27)
[2022-01-04] MEDS: metroNIDAZOLE 500 MG TABLET PO (23:27)
== END 2022-01-04 23:33 | disposition home or self-care (01) ==
PROVIDERS: Physician Assistant; Emergency Provider Emergency Medicine; PCP Internal Medicine
DX: K57.32 Diverticulitis of large intestine without perforation or abscess without bleeding (principal); R10.31 Right lower quadrant pain; R50.9 Fever, unspecified; Z87.891 Personal history of nicotine dependence; Z20.822 Contact with and (suspected) exposure to COVID-19; Z79.899 Other long term (current) drug therapy
CPT/HCPCS: 36415; 74177; 80053; 81001; 82248; 83605; 83690; 83735; 85025; 87040; 87086; 87635; 96360; 99284; Q9967

== ENCOUNTER 2022-06-10 11:00 | Outpatient (RCR) | payer MEDICARE, SELFPAY ==
--- NOTE | 2022-04-12 13:10 | MHC.PT.EP ---
[facility] [place] Office [place] [facility] [place] Office [address] Jyoti Arriaga [address] [phone] F: [phone] F: [phone] F: [phone] F: [phone] Physical Therapy Plan of Care Date of Evaluation: Date of Surgery: Diagnosis: PAIN IN RIGHT FOOT Assessment: 77 YO FEMALE REF TO PT FOR Rt FOOT PAIN SINCE . SHE DENIES TRAUMA- FELT SHE EXACERBATED HER SXS DUE TO WEARING A SLIP ON TYPE BOOT FOR HER FITNESS WALKING. OBJECTIVE FINDINGS: DECR AROM / FLEXIBILITY HIP/ ANKLES, DECR POSTURAL AWARENESS W SCOLIOSIS/ RIGHT RIB HUMP, (+) TISSUE TENSION IN DEVANG LUMBAR PS MM AND CALF, AND (+) Rt HEEL PAIN. FUNCTIONALLY, Pt HAS BEEN UNABLE TO FITNESS WALK EVEN 1 BLOCK, DECR JAILENE TO STANDING, SLEEPING, AND AFTER SITTING -> STAND. ALTERED GAIT MECH W DECR STANCE Rt LE, TIGHT PSOAS AND CALF MM AND Lt BUNION CREATING MECHANICAL INEFFICIENCY. THIS VERY MOTIVATED Pt WOULD BENEFIT FROM PT TO ADDRESS THE ABOVE FINDINGS, PAIN MGMT, AND DEV A PROGRESSIVE HEP/ SELF-SX MGMT STRATEGIES. Frequency and Duration: The patient will be seen 2 x WK x8 WKS Short Term Goals: Pt DEMON WFL AROM HIP EXT AND ANKLE DF/PF IN 2 WKS Pt DEMO MORE EFFICIENT GAIT MECH W ON LEVEL GROUND AND STAIRS IN 2 WKS Nurse Navigator Goals: Pt INDEP W HEP AND RESUME FITNESS WALKING IN 8 WKS Pt RESUME REG ADLs TO JAILENE EVIDENT IN IMPROVED LEFI BY 8-10 POINTS ( AT EVAL 35 /130 ) IN 8 WKS Pt INCREASE Rt LE STRENGTH BY 1 GRADE IN 8 WKS Treatment Plan: Modalities to reduce pain, spasms and effusion. Manual therapy to restore motion and function. Therapeutic exercise to improve strength and flexibility. Neuromuscular re-education for posture and balance. Therapeutic activities to return to functional activities of daily living. Electronically signed by: VIET Beltran Please sign and return to therapist. Thank you for your referral.
--- NOTE | 2022-08-07 11:51 | MHC.PT.DC ---
[facility] [place] Office [place] Office [address] Jyoti Arriaga 140 [facility] [phone] F: [phone] F: [phone] F: [phone] F: [phone] Physical Therapy Discharge Report Diagnosis: PAIN IN RIGHT FOOT Date of Surgery: Date of Evaluation: 04/12/22 Date of Discharge: 08/07/22 Treatments to Date: 9 Cancellations to Date: 2 No Shows to Date: Discharge Status: Achieved Goals Improved Function Independent with HEP Discharge Summary: Pt MET HER PT GOALS AT THIS TIME- THE ULTIMATE GOAL OF RESUMING HER FITNESS WALKING- SHE BENEFITTED FROM PT TO ADDRESS HER PROXIMAL LEs/ LUMBOPELVIC STRENGTH DEFICITS, FLEXIBILITY, AND PAIN- SHE IS INDEP W HER PROGRESSIVE HEP AND IS INDEP W HER SELF-SX MGMT TECHN AT THIS TIME. Electronically signed by: Susanna Bhardwaj,PT Please sign and return to therapist. Thank you for your referral.
== END 2022-08-07 11:52 | disposition home or self-care (01) ==
LOC: HO.PT 11:00
PROVIDERS: PCP Internal Medicine; Visit Provider Nurse Practitioner Family
DX: M79.671 Pain in right foot (principal)
CPT/HCPCS: 97035; 97110; 97112; 97140; 97162

== ENCOUNTER 2022-06-18 10:16 | Outpatient (REF) | payer MEDICARE, SELFPAY ==
[2022-06-18 10:25] LABS: MANUAL DIFF FLAG NO
[2022-06-18 10:53] LABS: Basophils Percent Auto 0.7 % (0-2); Eosinophils Absolute Auto 0.2 X10*3/uL (0.0-0.4); Hematocrit 44.7 % (37.0-47.0); Hemoglobin 14.6 g/dl (12.0-16.0); Imm Gran Abs Auto 0.02 X10*3/uL (0.00-0.03); Imm Gran Pct Auto 0.4 % (0.0-0.4); Lymphocytes Absolute Auto 1.1 X10*3/uL (1.2-4.9); Lymphocytes Percent Auto 20.2 % (20-40); Mean Corpuscular HGB Conc 32.7 g/dl (31.0-35.0); Mean Corpuscular Volume 94.9 fL (80.0-98.0); Mean Platelet Volume 10.8 fL (9.4-12.3); Monocytes Absolute Auto 0.4 X10*3/uL (0.1-1.2); Neutrophils Absolute Auto 3.8 x10*3/uL (2.0-8.3); Neutrophils Percent Auto 67.7 % (45-73); Platelet Count 171 X10*3/uL (160-400); Red Blood Count 4.71 X10*6/uL (4.20-5.50); Red Cell Distribution Width 12.7 % (11.0-16.0); White Blood Count 5.6 X10*3/uL (4.8-10.8)
[2022-06-18 11:04] LABS: Estimated Average Glucose 120 mg/dL; Hemoglobin A1C 149.8487 umol/L; Hemoglobin A1c % 5.8 %
[2022-06-18 11:58] LABS: Alanine Aminotransferase 17 U/L (0-31); Albumin Level 4.6 g/dL (3.5-5.0); Alkaline Phosphatase 73 U/L (39-117); Anion Gap 15 (12-20); Aspartate Amino Transferase 19 U/L (5-31); Bilirubin Total 0.7 mg/dL (0.0-1.0); Blood Urea Nitrogen 21 mg/dL (9-16); Calcium 9.9 mg/dL (8.4-10.2); Carbon Dioxide 28 mmol/L (22-29); Chloride 105 mmol/L (96-108); Cholesterol 219 mg/dL; Estimated Glomerular Filt Rate 41; Glucose Random 97 mg/dL (60-115); HDL Cholesterol 54 mg/dL; LDL Cholesterol Calculated 136 mg/dl; Potassium 5.2 mmol/L (3.3-5.1); Sodium 143 mmol/L (135-145); Total Protein 7.1 g/dL (6.5-8.0); Triglycerides 147 mg/dL
[2022-06-18 12:19] LABS: Thyroid Stimulating Hormone 1.24 uIU/mL (0.32-4.0); Vitamin D 25-OH Total 30.9 ng/mL (>30)
[2022-06-18 12:29] LABS: Vitamin B12 481 pg/mL (200-900)
[2022-06-18 12:34] LABS: Magnesium 4.2 mg/dL (1.6-2.6)
== END 2022-06-18 10:17 | disposition home or self-care (01) ==
LOC: HO.LAB 10:16
PROVIDERS: PCP Internal Medicine; Visit Provider Internal Medicine
DX: R73.02 Impaired glucose tolerance (oral) (principal); E78.00 Pure hypercholesterolemia, unspecified
CPT/HCPCS: 36415; 80053; 80061; 82306; 82607; 82746; 83036; 83735; 84439; 84443; 85025

== ENCOUNTER → 2022-07-02 10:02 | Outpatient (BNVA) | payer MEDICARE, SELFPAY | PROVIDERS: PCP Internal Medicine; Visit Provider Dietitian, Registered | DX: K57.92 Diverticulitis of intestine, part unspecified, without perforation or abscess without bleeding (principal) | CPT/HCPCS: 97802 ==

== ENCOUNTER 2022-07-05 14:23 | Outpatient (REF) | payer MEDICARE, SELFPAY ==
--- NOTE | ~2022-07-05 | MM_ITS ---
EXAMINATION: MM DIAGNOSTIC DIGITAL BREAST TOMOSYNTHESIS, LEFT TARGETED LEFT BREAST ULTRASOUND CLINICAL INFORMATION: Six-month follow up left breast nodule. The lifetime risk of breast cancer based on the Tyrer-Cuzick Model is 1.7%. COMPARISON: Mammography: 01/03/2022 and studies dating back to 09/18/2012. TECHNIQUE: Digital mammography is performed in craniocaudal and mediolateral oblique views. Digital breast tomosynthesis is performed in implant-displaced craniocaudal and implant-displaced mediolateral oblique views. Synthesized 2D images are generated from the tomosynthesis. Computer-aided detection (CAD) is performed for this exam. Targeted left breast ultrasound. FINDINGS: There are scattered areas of fibroglandular density (ACR BI-RADS breast composition Category b). There is again noted to be some outpouching about the anterior medial aspect of the left breast implant without significant change from most recent study of 12/20/2021 and was smaller on study of 06/17/2020 and not evident on study of 02/17/2019. There are no new significant masses, abnormal calcifications, or other abnormalities. Ultrasound of the left breast demonstrated at the 1 o'clock position, 7 cm from the nipple, a mildly hypoechoic circumscribed lesion measuring 5 x 3 x 6 mm in size without distal sound shadowing or enhancement and without internal vascularity. Previously this measured 7 x 4 x 6 mm in size. Lesion is wider than it is tall. At approximately the 9 o'clock position, 3 cm from the nipple, there is noted to be an undulation of the implant wall. It is difficult to tell whether this may be infolding or contained silicone. Posteriorly there is a snowstorm effect with limited evaluation related to this. Results are discussed with the patient at time of visit. MM/MM tomosynthesis diag imp LT IMPRESSION: No suspicious left breast findings as described. Recommend 6 month follow up bilateral mammography and left breast ultrasound. ASSESSMENT: BI-RADS 3: Probably Benign. RECOMMENDATION: Diagnostic mammography in 6 months. This patient's information was entered into a reminder system with a target due date for their next mammogram.
== END 2022-07-05 14:24 | disposition home or self-care (01) ==
LOC: HO.MAMMO 14:23
PROVIDERS: PCP Internal Medicine; Visit Provider Internal Medicine
DX: R92.2 Inconclusive mammogram (principal)
CPT/HCPCS: 76642; 77061; 77065

== ENCOUNTER 2022-10-10 09:29 | Outpatient (REF) | payer MEDICARE, SELFPAY ==
[2022-10-10 10:42] LABS: Estimated Average Glucose 120 mg/dL; Hemoglobin A1c % 5.8 %
[2022-10-10 11:22] LABS: Alanine Aminotransferase 13 U/L (0-31); Albumin Level 4.3 g/dL (3.5-5.0); Alkaline Phosphatase 70 U/L (39-117); Anion Gap 12 (12-20); Aspartate Amino Transferase 18 U/L (5-31); Bilirubin Total 0.7 mg/dL (0.0-1.0); Blood Urea Nitrogen 22 mg/dL (9-16); Calcium 9.7 mg/dL (8.4-10.2); Carbon Dioxide 28 mmol/L (22-29); Chloride 106 mmol/L (96-108); Cholesterol 192 mg/dL; Estimated Glomerular Filt Rate 44; Glucose Random 102 mg/dL (60-115); HDL Cholesterol 54 mg/dL; LDL Cholesterol Calculated 118 mg/dl; Magnesium 1.9 mg/dL (1.6-2.6); Potassium 4.9 mmol/L (3.3-5.1); Sodium 141 mmol/L (135-145); Total Protein 6.6 g/dL (6.5-8.0); Triglycerides 104 mg/dL
== END 2022-10-10 09:30 | disposition home or self-care (01) ==
LOC: HO.LAB 09:29
PROVIDERS: PCP Internal Medicine; Visit Provider Internal Medicine
DX: E78.00 Pure hypercholesterolemia, unspecified (principal); R73.02 Impaired glucose tolerance (oral)
CPT/HCPCS: 36415; 80053; 80061; 83036; 83735

== ENCOUNTER 2022-11-22 15:06 | Outpatient (REF) | payer MEDICARE, SELFPAY | END 2022-11-22 15:07 | disposition home or self-care (01) | LOC: HO.SH 15:06 | PROVIDERS: Visit Provider Internal Medicine | DX: Z01.118 Encounter for examination of ears and hearing with other abnormal findings (principal); H90.3 Sensorineural hearing loss, bilateral | CPT/HCPCS: 92557; 92567 ==

== ENCOUNTER 2023-01-09 14:32 | Outpatient (REF) | payer MEDICARE, SELFPAY ==
--- NOTE | ~2023-01-09 | MM_ITS ---
EXAMINATION: BONE DENSITOMETRY CLINICAL INDICATION: Age-related osteoporosis without current pathological fracture. COMPARISON: Previous BD dated 08/26/2014 and baseline BD dated 01/20/2009. TECHNIQUE: Using a [employer] DXA System (software version: 13.1) manufactured by [employer], dual-energy x-ray absorptiometry was performed of the lumbar spine and left hip. The images are of good technical quality. Summary results are attached. FINDINGS: AP SPINE L1-L4: Current: BMD 1.265 g/cm2, Z-score 2.6, T-score 0.7, normal, 7.1% increase from previous, 4.5% increase from baseline (<5% change is not significant). Prior: BMD 1.181 g/cm2. Baseline: BMD 1.210 g/cm2. LEFT FEMUR, NECK: Current: BMD 0.857 g/cm2, Z-score 0.9, T-score -1.3, osteopenia. Prior: BMD 0.881 g/cm2. Baseline: BMD 0.878 g/cm2. LEFT FEMUR, TOTAL: Current: BMD 0.900 g/cm2, Z-score 1.2, T-score -0.9, normal, 2.4% increase from previous, 4.7% decrease from baseline (<5% change is not significant). Prior: BMD 0.879 g/cm2. Baseline: BMD 0.944 g/cm2. IDENTIFIED RISK FACTORS: Height loss, low calcium intake, menopause. HISTORY OF FRACTURE: None listed. MEDICATIONS: Vitamin D. MM/XR DEXA axial skeleton IMPRESSION: 1. DIAGNOSIS: Osteopenia based on the lowest T-score value of -1.3 in the femoral neck applying World Health Organization criteria. 2. 10-YEAR FRACTURE RISK PREDICTION, FRAX: Major osteoporotic fracture (clinical spine, forearm, hip or shoulder) 12.4%. Hip fracture 2.8%. 3. Treatment Recommendations: NOF guidelines recommend consideration for treatment in postmenopausal women and men age 50 and older presenting with the following: -A hip or vertebral (clinical or morphometric) fracture. -T-score less than or equal to -2.5 at the femoral neck or spine after appropriate evaluation to exclude secondary causes. -Low bone mass at the hip or spine and a 10-year fracture probability by FRAX of greater than or equal to 3% for hip fracture or greater than or equal to 20% for major osteoporotic fracture based on the [place] adapted WHO algorithm. 4. Other Recommendations: All treatment decisions require clinical judgment and consideration of individual patient factors, including patient preferences, comorbidities, previous drug use, risk factors not captured in the FRAX model (e.g. frailty, falls, vitamin D deficiency, increased bone turnover, interval significant decline in bone density) and possible under or overestimation of fracture risk by FRAX. Additional medical evaluation for secondary cause of low bone mineral density may be appropriate. FUTURE SCAN RECOMMENDATION: People with diagnosed cases of osteoporosis or at high risk for fracture should have regular bone mineral density tests. For patients eligible for Medicare, routine testing is allowed once every 2 years. The testing frequency can be increased to one year for patients who have rapidly progressing disease, those who are receiving or discontinuing medical therapy to restore bone mass, or have additional risk factors.
--- NOTE | ~2023-01-09 | MM_ITS ---
EXAMINATION: MM DIAGNOSTIC DIGITAL BREAST TOMOSYNTHESIS, BILATERAL CLINICAL INFORMATION: Left breast six-month follow up for hypoechoic lesion. Yearly left breast mammogram. Targeted left breast ultrasound. COMPARISON: Mammography: 07/05/2022 and studies dating back to 07/25/2016. TECHNIQUE: Digital mammography is performed in craniocaudal and mediolateral oblique views. Digital breast tomosynthesis is performed in implant-displaced craniocaudal and implant-displaced mediolateral oblique views. Synthesized 2D images are generated from the tomosynthesis. Computer-aided detection (CAD) is performed for this exam. TARGETED LEFT BREAST ULTRASOUND: FINDINGS: There are scattered areas of fibroglandular density (ACR BI-RADS breast composition Category b). There is no change of contour of the implant with undulation seen about the left breast anterior medial aspect as well as the lateral aspect into the axilla. Capsular calcification is present in the above appearance as well as ultrasound findings and are suspicious for possible silicone leak. Again this has not changed since study of 07/05/2022 and 12/20/2021. No new abnormal dominant mass or suspicious grouping of microcalcifications is identified. There is a stable appearance of the right breast. Targeted ultrasound evaluation of the left breast lesion 1 o'clock position, 7 cm from the nipple, again shows a well-circumscribed hypoechoic lesion measuring approximately 6 x 3 mm in size with some mild distal sound enhancement and no distal sound shadowing, which is stable dating back to study of 01/03/2022. Results are provided to the patient at time of visit by the technologist. MM/MM tomosynthesis diag imp BI IMPRESSION: There are no significant changes from prior study. ASSESSMENT: BI-RADS 3: Probably Benign. RECOMMENDATION: Diagnostic mammography at time of next annual exam, due in 12 months. This patient's information was entered into a reminder system with a target due date for their next mammogram.
== END 2023-01-09 14:33 | disposition home or self-care (01) ==
LOC: HO.MAMMO 14:32
PROVIDERS: PCP Internal Medicine; Visit Provider Internal Medicine
DX: Z13.820 Encounter for screening for osteoporosis (principal); Z78.0 Asymptomatic menopausal state; M81.0 Age-related osteoporosis without current pathological fracture; N64.89 Other specified disorders of breast
CPT/HCPCS: 76642; 77062; 77066; 77080

== ENCOUNTER 2023-05-24 04:21 | Emergency (ER) | payer MEDICARE, SELFPAY ==
--- NOTE | ~2023-05-24 | CT_ITS ---
EXAMINATION: CT ABDOMEN AND PELVIS WITH CONTRAST CLINICAL INFORMATION: Left lower quadrant pain. History of diverticulitis. COMPARISON: Previous CT of the abdomen and pelvis most recent December 2021 TECHNIQUE: Multidetector volumetric images were obtained from the superior aspect of the liver through the pubic symphysis following administration 85 mL of Omnipaque 350 intravenous contrast. Sagittal and coronal reformatted images were obtained on the technologist's workstation. Oral contrast: Yes This CT examination was performed using dose optimization techniques as appropriate, variously including the following: *Automated exposure control *Adjustment of mA and/or kV according to patient size (this includes techniques or standardized protocols for targeted exams where dose is matched to indication/reason for exam; i.e. extremities or head) *Use of iterative reconstruction technique DLP: 452 mGy-cm FINDINGS: LUNG BASES: The visualized lung bases are clear. Bilateral breast implants. LIVER, GALLBLADDER, AND BILIARY TREE: The liver is normal in size, shape, and attenuation. No focal hepatic lesion or biliary ductal dilatation is present. The gallbladder is unremarkable with no evidence of radiopaque gallstones, gallbladder wall thickening, or obvious pericholecystic inflammatory changes. PANCREAS: Unremarkable. SPLEEN: Unremarkable. ADRENAL GLANDS: Unremarkable. KIDNEYS AND URETERS: The kidneys are normal in size, shape, and attenuation. No hydronephrosis, hydroureter, or calculi seen. No perinephric stranding. BLADDER: Unremarkable. GASTROINTESTINAL TRACT: Constipation and diverticulosis. No evidence of diverticulitis. Surgical staple line in the lower sigmoid colon or upper rectum. The small and large bowel are otherwise unremarkable. The appendix is unremarkable. ABDOMINAL WALL: No significant hernia is appreciated. LYMPH NODES: Normal. VASCULAR: Atherosclerotic disease. PELVIC VISCERA: Prominent left pelvic vessels questionable for pelvic congestion. Uterus and adnexa otherwise appear unremarkable. OSSEOUS STRUCTURES: Right hip replacement. Degenerative changes of the spine and mild scoliosis. CT/CT abdomen pelvis w IV con IMPRESSION: Diverticulosis and mild constipation. Fleischner guidelines were followed.
--- NOTE | 2023-05-24 04:25 | ECG_ITS ---
Test Reason : ABD PAIN Blood Pressure : / mmHG Vent. Rate : 061 BPM Atrial Rate : 061 BPM P-R Int : 126 ms QRS Dur : 078 ms QT Int : 422 ms P-R-T Axes : 044 -09 007 degrees QTc Int : 424 ms Sinus rhythm with marked sinus arrhythmia Cannot rule out Anterior infarct , age undetermined Abnormal ECG When compared with ECG of 05-APR-2007 18:25, Questionable change in QRS axis Nonspecific T wave abnormality no longer evident in Lateral leads Referred By: Catrina Culver Electronically Signed By:JOSÉ MIGUEL SALAS
--- NOTE | 2023-05-24 04:33 | ED_ITS ---
HPI - Abdominal Pain General Chief Complaint: Abdominal Pain Stated Complaint: Abdominal pain Time Seen by Provider: 05/24/23 04:28 Source: patient Mode of arrival: ambulatory Limitations: no limitations History of Present Illness HPI narrative: Pain comes in the emergency room complaining of left lower quadrant pain intermittently for 5 days. Patient states that over the last few hours, the pain has been continuously getting worse. Patient denies nausea vomiting diarrhea, no rectal bleeding. Patient has history of diverticulitis and bowel resection 14 years ago. Related Data Home Medications Medication Instructions Recorded Confirmed cholecalciferol (vitamin D3) 25 25 mcg PO DAILY 07/18/20 01/17/23 mcg (1,000 unit) capsule coenzyme Q10 200 mg capsule (Co 200 mg PO DAILY 07/18/20 01/17/23 Q-10) lactobacillus combination no.4 3 3,000 mmu cells PO DAILY 06/26/21 01/17/23 billion cell capsule (Probiotic) docusate sodium 100 mg capsule 200 mg PO DAILY 10/16/22 01/17/23 (Stool Softener) magnesium 200 mg tablet 200 mg PO DAILY 10/16/22 01/17/23 Previous Rx's Medication Instructions Recorded alprazolam 0.25 mg tablet (Xanax) 0.25 mg PO DAILY PRN anxiety 90 12/25/21 days #60 tabs pravastatin 10 mg tablet 10 mg PO DAILY #90 caps 10/16/22 albuterol sulfate 90 mcg/actuation 2 puff inhalation Q4-6H PRN 01/17/23 aerosol inhaler (Ventolin HFA) shortness of breath or wheezing #8.5 grams Allergies Allergy/AdvReac Type Severity Reaction Status Date / Time atorvastatin [Lipitor] Allergy Unknown Unknown Verified 05/24/23 04:45 clarithromycin [From Biaxin] Allergy Unknown Unknown Verified 05/24/23 04:45 doxycycline Allergy Unknown rash, Verified 05/24/23 04:45 vision changes erythromycin base Allergy Unknown Unknown Verified 05/24/23 04:45 influenza virus vaccine tvs Allergy Unknown vomitting Verified 05/24/23 04:45 [id number](65 years up) [From Fluzone High-Dose 2017- (PF)] moxifloxacin [Avelox] Allergy Unknown Unknown Verified 05/24/23 04:45 omeprazole [Prilosec] Allergy Unknown Unknown Verified 05/24/23 04:45 scalp rx Penicillins Allergy Unknown UNKNOWN Verified 05/24/23 04:45 simvastatin Allergy Unknown Unknown Verified 05/24/23 04:45 Sulfa (Sulfonamide Allergy Unknown SWELLING Verified 05/24/23 04:45 Antibiotics) Review of Systems Review of Systems Constitutional : No Weight loss, No Fever, No Chills, No Night Sweats, No Fatigue, No Malaise ENT/Mouth : No Hearing loss, No Ear Pain, No Nasal Congestion, No Sinus Pain, No Hoarseness, No sore throat, No Rhinorrhea, No Swallowing Difficulty Eyes: No Eye Pain, No Swelling, No Redness, No Foreign Body, No Discharge, No Vision Changes Cardiovascular : No Chest Pain, No SOB, No Dyspnea on Exertion, No Orthopnea, No Edema, No Palpitations Respiratory : No Cough, No Sputum, No Wheezing, No Smoke Exposure, No Dyspnea Gastrointestinal : No Nausea, No Vomiting, No Diarrhea, No Constipation, complaining of worsening left lower quadrant pain, no hematochezia or melena Genitourinary : no irregular bleeding, No Dysuria, No Urinary Frequency, No Hematuria, No Urinary Incontinence, No Urgency, No Flank Pain, No Urinary Flow Changes, No Hesitancy Musculoskeletal : No joint pain, No Myalgias, No Joint Swelling Skin : No Skin Lesions, No rash Neuro : No Weakness, No Numbness, No Paresthesias, No Loss of Consciousness, No Dizziness, No Headache Psych : No Anxiety/Panic, No Depression, No SI/HI/AH/VH, No Social Issues, Heme/Lymph: No Bruising, No Bleeding,No Lymphadenopathy Endocrine : No Polyuria, No Polydipsia, No Temperature Intolerance [facility] Past Medical History Medical History Anxiety Diverticulosis Elevated blood pressure reading Hypercholesterolemia Lumbar disc herniation Osteoarthritis of right hip Surgical History History of colectomy History of right hip replacement Hx of breast implants, bilateral Melanoma Family History Family History Father CVD (cardiovascular disease) Mother CVD (cardiovascular disease) Diabetes Social History Social History Housing: House Alcohol intake: current Alcohol intake frequency: does not drink Alcohol type: wine Patient Tobacco Use Status: Former Tobacco user Tobacco use type: Cigarette Years Smoked: teenager Smoked in Last 30 Days: No e-Cigarette/Vaping Use: Never Used Second Hand Smoke Exposure: No Use of substances other than those prescribed or required for medical reasons: No Advance Directives: No Advance Directives Information Provided: Yes Current occupational status: retired Cognitive needs: No Hearing needs: No Vision needs: Yes Physical Exam ED Vital Signs: Vital Signs - 24 hr 05/24/23 04:37 05/24/23 06:57 Temperature 96.9 F Pulse Rate 64 57 Respiratory Rate 18 18 Blood Pressure 173/75 H 153/76 H Pulse Oximetry 96 99 Oxygen Delivery Method Room Air Room Air BMI result Body Mass Index 21.9 Const Other: Appearance: Alert. Oriented X3. No acute distress. Eyes: Pupils equal, round and reactive to light. ENT: Pharynx normal. Neck: Normal inspection. Neck supple. No lymph nodes noted. No crepitus CVS: Normal heart rate and rhythm. Pulses normal. Normal S1 and S2 Respiratory: No respiratory distress. Breath sounds normal. No Wheezing. No rales Abdomen: Soft, moderate pain to palpation in the left lower quadrant, No rigidity. No distention. Skin: Skin warm and dry. Normal skin color. Normal skin turgor. Extremities: No lower extremity edema. No Lacerations. No Rash Neuro: Oriented X 3. No motor deficit. No sensory deficit. Moving all extremities. No slurred speech. CN 2 through 12 grossly intact Psych: calm, cooperative, normal affect Course Course Course Narrative: -all of patient's labs and imaging pending Medical Decision Making Medical Decision Making MDM Narrative: -my interpretation of labs, normal white blood cell count, normal chemistry, urinalysis has small leukocyte esterase but no urinary symptoms, treatment not indicated. Patient has had urinalysis with positive leukocyte esterase with no bacterial growth. -patient very anxious, patient thinks that she may have cancer because she has intermittent abdominal pain, no B symptoms. Patient very anxious. -the scan of the abdomen pending -sign-out given to Dr. Spangler Differential Diagnosis Differential Diagnoses: The differential diagnosis associated with the presentation includes (Diverticulosis, diverticulitis, ovarian cyst, constipation) Admission/Observation Consideration of admission/observation: Escalation of care including admission/observation considered (Patient complaining of left lower quadrant pain, history of diverticulitis with surgery, admission was considered) Lab Data MDM Lab Attestation statement: I reviewed the patient's lab results. 05/24/23 05:06 05/24/23 05:06 Labs: Lab Results 05/24/23 05/24/23 05/24/23 Range/Units 05:06 05:06 05:06 WBC 5.0 (4.8-10.8) X10*3/uL RBC 4.41 (4.20-5.50) X10*6/uL Hgb 13.7 (12.0-16.0) g/dl Hct 40.8 (37.0-47.0) % MCV 92.5 (80.0-98.0) fL MCH 31.1 (27.0-33.0) pg MCHC 33.6 (31.0-35.0) g/dl RDW 12.8 (11.0-16.0) % Plt Count 151 L (160-400) X10*3/uL MPV 10.9 (9.4-12.3) fL Immature Gran % (Auto) 0.2 (0.0-0.4) % Neut % (Auto) 66.3 (45-73) % Lymph % (Auto) 22.6 (20-40) % [place] % (Auto) 8.5 (2-11) % Eos % (Auto) 2.0 (0-4) % Baso % (Auto) 0.4 (0-2) % Lymph # (Auto) 1.1 L (1.2-4.9) X10*3/uL [place] # (Auto) 0.4 (0.1-1.2) X10*3/uL Eos # (Auto) 0.1 (0.0-0.4) X10*3/uL Baso # (Auto) 0.0 (0.0-0.2) X10*3/uL Abs Immat Gran (auto) 0.01 (0.00-0.03) X10*3/uL Absolute Neuts (auto) 3.3 (2.0-8.3) x10*3/uL Absolute Nucleated RBC 0.000 (0.0-0.012) X10*3/uL Nucleated RBC % (auto) 0.0 (0.0-0.2) /100WBC Sodium 139 (135-145) mmol/L Potassium 4.2 (3.3-5.1) mmol/L Chloride 103 (96-108) mmol/L Carbon Dioxide 25 (22-29) mmol/L Anion Gap 15 (12-20) BUN 16 (9-16) mg/dL Creatinine 1.11 (0.5-1.4) mg/dL Estim Creat Clear Calc 39.3 Estimated GFR 47 Random Glucose 113 (60-115) mg/dL Calcium 10.0 (8.4-10.2) mg/dL Total Bilirubin 0.8 (0.0-1.0) mg/dL Direct Bilirubin 0.2 (0.0-0.5) mg/dL AST 17 (5-31) U/L ALT 15 (0-31) U/L Alkaline Phosphatase 65 (39-117) U/L Troponin I High Sens 2.8 (<3.5-17.0) ng/L Total Protein 6.9 (6.5-8.0) g/dL Albumin 4.4 (3.5-5.0) g/dL Lipase 51 (8-78) U/L Urine Color Urine Appearance Urine pH (5.0-9.0) Ur Specific [place] (1.005-1.025) Urine Protein (Neg-Trace) mg/dL Urine Glucose (UA) (Negative) mg/dL Urine Ketones (Negative) mg/dL Urine Blood (Negative) Urine Nitrite (Negative) Ur Leukocyte Esterase (Negative) Urine RBC (0-2) /HPF Urine WBC (0-5) /HPF Ur Squamous Epith Cells (0-2) /HPF Urine Bacteria (None Seen) Hyaline Casts (0-2) /LPF 05/24/23 Range/Units 05:06 WBC (4.8-10.8) X10*3/uL RBC (4.20-5.50) X10*6/uL Hgb (12.0-16.0) g/dl Hct (37.0-47.0) % MCV (80.0-98.0) fL MCH (27.0-33.0) pg MCHC (31.0-35.0) g/dl RDW (11.0-16.0) % Plt Count (160-400) X10*3/uL MPV (9.4-12.3) fL Immature Gran % (Auto) (0.0-0.4) % Neut % (Auto) (45-73) % Lymph % (Auto) (20-40) % [place] % (Auto) (2-11) % Eos % (Auto) (0-4) % Baso % (Auto) (0-2) % Lymph # (Auto) (1.2-4.9) X10*3/uL [place] # (Auto) (0.1-1.2) X10*3/uL Eos # (Auto) (0.0-0.4) X10*3/uL Baso # (Auto) (0.0-0.2) X10*3/uL Abs Immat Gran (auto) (0.00-0.03) X10*3/uL Absolute Neuts (auto) (2.0-8.3) x10*3/uL Absolute Nucleated RBC (0.0-0.012) X10*3/uL Nucleated RBC % (auto) (0.0-0.2) /100WBC Sodium (135-145) mmol/L Potassium (3.3-5.1) mmol/L Chloride (96-108) mmol/L Carbon Dioxide (22-29) mmol/L Anion Gap (12-20) BUN (9-16) mg/dL Creatinine (0.5-1.4) mg/dL Estim Creat Clear Calc Estimated GFR Random Glucose (60-115) mg/dL Calcium (8.4-10.2) mg/dL Total Bilirubin (0.0-1.0) mg/dL Direct Bilirubin (0.0-0.5) mg/dL AST (5-31) U/L ALT (0-31) U/L Alkaline Phosphatase (39-117) U/L Troponin I High Sens (<3.5-17.0) ng/L Total Protein (6.5-8.0) g/dL Albumin (3.5-5.0) g/dL Lipase (8-78) U/L Urine Color Yellow Urine Appearance Clear Urine pH 6.0 (5.0-9.0) Ur Specific [place] <= 1.005 (1.005-1.025) Urine Protein Negative (Neg-Trace) mg/dL Urine Glucose (UA) Negative (Negative) mg/dL Urine Ketones Negative (Negative) mg/dL Urine Blood Negative (Negative) Urine Nitrite Negative (Negative) Ur Leukocyte Esterase Small (1+) H (Negative) Urine RBC 0-2 (0-2) /HPF Urine WBC 0-5 (0-5) /HPF Ur Squamous Epith Cells 0-2 (0-2) /HPF Urine Bacteria None Seen (None Seen) Hyaline Casts 0-2 (0-2) /LPF Medications Administered Discontinued Medications Generic Name Dose Route Start Last Admin Trade Name Freq PRN Reason Stop Dose Admin Iohexol 85 ml 05/24/23 05:59 05/24/23 06:00 Iohexol 350 Mg/Ml 100 Ml Infus..Btl IV 05/24/23 06:00 85 ml ONCE ONE Administration Critical Care Time Critical Care Time Critical Care Time: Yes Total Critical Care Time: 60 Attestation: I have personally provided critical care time. Time includes review of lab data, radiology results, discussion with consultants, and monitoring for potential decompensation. Intervention performed as documented. Discharge Plan Discharge Clinical Impression: Abdominal pain Patient Disposition: Still a Patient Prescriptions: No Action Probiotic 3 billion cell capsule 3,000 mmu cells PO DAILY Rx Instructions: administer with a meal coenzyme Q10 [Co Q-10] 200 mg capsule 200 mg PO DAILY cholecalciferol (vitamin D3) 25 mcg (1,000 unit) capsule 25 mcg PO DAILY docusate sodium [Stool Softener] 100 mg capsule 200 mg PO DAILY magnesium 200 mg tablet 200 mg PO DAILY pravastatin 10 mg tablet 10 mg PO DAILY Qty: 90 3RF albuterol sulfate [Ventolin HFA] 90 mcg/actuation HFA aerosol inhaler 2 puff inhalation Q4-6H PRN (Reason: shortness of breath or wheezing) Qty: 8.5 0RF alprazolam [Xanax] 0.25 mg tablet 0.25 mg PO DAILY PRN (Reason: anxiety) 90 Days Qty: 60 0RF
[2023-05-24 04:37] VITALS: BP 173/75; PULSE 64; RESP 18; TEMP 36.1; O2SAT 96; BMI 21.9
[2023-05-24 05:16] LABS: MANUAL DIFF FLAG NO
[2023-05-24 05:17] LABS: Appearance Urine Clear; Color Urine Yellow; Glucose Urine UA Negative (Negative); Leukocyte Esterase Urine Small (1+) (Negative); Nitrite Urine Negative (Negative); Specific Gravity - Urine <= 1.005 (1.005-1.025); UMIC TRIGGER UACC YES; Urine Blood Negative (Negative); Urine Ketones Negative (Negative); Urine Protein Negative (Neg-Trace)
[2023-05-24 05:18] LABS: Basophils Percent Auto 0.4 % (0-2); Eosinophils Absolute Auto 0.1 X10*3/uL (0.0-0.4); Hematocrit 40.8 % (37.0-47.0); Hemoglobin 13.7 g/dl (12.0-16.0); Imm Gran Abs Auto 0.01 X10*3/uL (0.00-0.03); Imm Gran Pct Auto 0.2 % (0.0-0.4); Lymphocytes Absolute Auto 1.1 X10*3/uL (1.2-4.9); Lymphocytes Percent Auto 22.6 % (20-40); Mean Corpuscular HGB Conc 33.6 g/dl (31.0-35.0); Mean Corpuscular Hemoglobin 31.1 pg (27.0-33.0); Mean Corpuscular Volume 92.5 fL (80.0-98.0); Mean Platelet Volume 10.9 fL (9.4-12.3); Monocytes Absolute Auto 0.4 X10*3/uL (0.1-1.2); Monocytes Percent Auto 8.5 % (2-11); Neutrophils Absolute Auto 3.3 x10*3/uL (2.0-8.3); Neutrophils Percent Auto 66.3 % (45-73); Platelet Count 151 X10*3/uL (160-400); Red Blood Count 4.41 X10*6/uL (4.20-5.50); Red Cell Distribution Width 12.8 % (11.0-16.0)
[2023-05-24 05:31] LABS: Bacteria Urine None Seen (None Seen); Hyaline Casts Urine 0-2 /LPF (0-2); RBC Urine 0-2 /HPF (0-2); Squamous Epithelial Cell Urine 0-2 /HPF (0-2); UACC Culture Trigger YES; WBC Urine 0-5 /HPF (0-5)
[2023-05-24 05:37] LABS: Alanine Aminotransferase 15 U/L (0-31); Albumin Level 4.4 g/dL (3.5-5.0); Alkaline Phosphatase 65 U/L (39-117); Anion Gap 15 (12-20); Aspartate Amino Transferase 17 U/L (5-31); Bilirubin Direct 0.2 mg/dL (0.0-0.5); Bilirubin Total 0.8 mg/dL (0.0-1.0); Blood Urea Nitrogen 16 mg/dL (9-16); Carbon Dioxide 25 mmol/L (22-29); Chloride 103 mmol/L (96-108); Creatinine Clr Calc Pharmacy 39.3; Estimated Glomerular Filt Rate 47; Glucose Random 113 mg/dL (60-115); Lipase 51 U/L (8-78); Potassium 4.2 mmol/L (3.3-5.1); Sodium 139 mmol/L (135-145); Total Protein 6.9 g/dL (6.5-8.0)
[2023-05-24 05:42] LABS: Troponin-I High Sensitivity 2.8 ng/L (<3.5-17.0)
[2023-05-24] MEDS: iohexoL 350 MG/ML 100 ML INFUS..BTL 85 ML IV (06:00)
[2023-05-24 06:57] VITALS: BP 153/76; PULSE 57; RESP 18; O2SAT 99
== END 2023-05-24 07:50 | disposition home or self-care (01) ==
PROVIDERS: Emergency Provider Emergency Medicine; PCP Internal Medicine
DX: R10.32 Left lower quadrant pain (principal); E78.00 Pure hypercholesterolemia, unspecified; Z87.891 Personal history of nicotine dependence
CPT/HCPCS: 36415; 74177; 80048; 80076; 81001; 83690; 84484; 85025; 87086; 93005; 99284; 99285; Q9967

== ENCOUNTER 2023-05-30 09:31 | Outpatient (AMB) | payer MEDICARE, SELFPAY ==
[2023-05-30 09:35] VITALS: BP 136/82; PULSE 73; O2SAT 98; BMI 21.3
--- NOTE | 2023-05-30 09:35 | MHC.PC.OV ---
Vital Signs 05/30/23 09:35 Height 5 ft 7 in Weight 136 lb 0.6 oz BMI 21.3 BP 136/82 Blood Pressure Location Lt brachial Position Sitting Pulse 73 Pulse Source Pulse Oximeter Temp Source Skin Pulse Oximetry (%) 98 Oxygen Delivery Method Room Air Intake Visit Reasons: HM, constipation Intake Note: Patient is here to follow-up after a visit the emergency department at [facility] for abdominal pain [employer] Team Member Required: No Allergies atorvastatin [Lipitor] Allergy (Unknown, Verified 05/30/23 09:35) Unknown clarithromycin [From Biaxin] Allergy (Unknown, Verified 05/30/23 09:35) Unknown doxycycline Allergy (Unknown, Verified 05/30/23 09:35) rash, vision changes erythromycin base Allergy (Unknown, Verified 05/30/23 09:35) Unknown influenza virus vaccine tvs [id number](65 years up) [From Fluzone High-Dose 2018- (PF)] Allergy (Unknown, Verified 05/30/23 09:35) vomitting moxifloxacin [Avelox] Allergy (Unknown, Verified 05/30/23 09:35) Unknown omeprazole [Prilosec] Allergy (Unknown, Verified 05/30/23 09:35) Unknown scalp rx Penicillins Allergy (Unknown, Verified 05/30/23 09:35) UNKNOWN simvastatin Allergy (Unknown, Verified 05/30/23 09:35) Unknown Sulfa (Sulfonamide Antibiotics) Allergy (Unknown, Verified 05/30/23 09:35) SWELLING Tobacco use date assessed: 05/30/23 Fall risk assessment: No Falls in past year Last assessed Fall Risk: 05/30/23 Dental Screening Dental Screen Date: 05/30/23 Did you have a dental visit in the last 12 months?: Yes Did you have a dental problem in the last 6 months where you did not have access to dental care?: No Was dental information given to patient?: Patient has dentist HPI [facility], constipation HPI Details 78-year-old female with hypercholesterolemia impaired glucose tolerance generalized anxiety disorder coming in for follow-up. Last seen in September 2022 colonoscopy is up-to-date having had tubular adenoma February 2021 bone density December 2022 mammogram December 2022 patient is here for follow-up.. Review of the notes May 24 was in the ER for a left lower quadrant abdominal pain CT scan done did not see anything significant except for mild constipation and diverticulosis blood work were within normal limits was prescribed probiotics. December was in the Urgent Center also due to seeing flashing lights diagnosis of bronchitis and was advised vision screening.. LLQ to the flank left 1 week ago did enema and cleaned out- but still with pain, burping occ m, no fevers,no n no v, no cough no frequency, , no vaginal discharge PFSH Medical History Anxiety Diverticulosis Elevated blood pressure reading Hypercholesterolemia Lumbar disc herniation Osteoarthritis of right hip Surgical History History of colectomy History of right hip replacement Hx of breast implants, bilateral Melanoma Family History Father CVD (cardiovascular disease) Mother CVD (cardiovascular disease) Diabetes Social History Housing: House Alcohol intake: current Alcohol intake frequency: does not drink Alcohol type: wine Patient Tobacco Use Status: Former Tobacco user Tobacco use type: Cigarette Years Smoked: teenager e-Cigarette/Vaping Use: Never Used Second Hand Smoke Exposure: No Current occupational status: retired Cognitive needs: No Hearing needs: No Vision needs: Yes Questionnaire Thrive Questionnaire Date Thrive assessed: 10/16/22 AUDIT C Alcohol Use Questionnaire (AUDIT-C) 1. How often do you have a drink containing alcohol?: Monthly or less 2. How many drinks containing alcohol do you have on a typical day when you are drinking?: 1 or 2 3. How often do you have six or more drinks on one occasion?: Never Total Score: 1 Score Reviewed/Action Taken: No TEGAN-7 AMB Questionnaire TEGAN-7 Date TEGAN - 7 assessed: 10/16/22 Source: Developed by Drs. Meliton Lind, Barbara George, Leander Ibrahim and colleagues, with an educational prudencio from [employer]. Physical exam (Primary Care) Vital Signs: Last Vital Signs Pulse 73 05/30/23 09:35 BP 136/82 05/30/23 09:35 Pulse Ox 98 05/30/23 09:35 Oxygen Delivery Method Room Air 05/30/23 09:35 BMI result Body Mass Index 21.3 Tobacco/Smoking Status: Tobacco use Status Tobacco use date assessed 05/30/23 05/30/23 09:36 Patient Tobacco Use Status Former Tobacco user 05/30/23 09:36 Tobacco use type Cigarette 05/30/23 09:36 e-Cigarette/Vaping Use Never Used 05/30/23 09:36 Thrive Assessment: Date of Thrive Assessment Date Thrive assessed 10/16/22 05/30/23 09:36 Const General: alert; No acute distress Eyes Conjunctivae: conjunctivae normal Resp Auscultation: clear to auscultation bilaterally Cardio Rate: regular rate Rhythm: regular rhythm GI Other: Abdomen is soft vague slight tenderness on the left lower quadrant with no guarding no rebound no masses appreciated. Rectal exam is negative Inspection: Yes normal to inspection Extrem General: Yes normal to inspection and No edema Assessment and Plan Assessment & Plan (1) Constipation: Code(s): K59.00 - Constipation, unspecified Plan: Three rules for constipation 1. Diet need to have a high fiber diet less of meat 2. Increase oral fluids 3. Exercise discussed about medications Metamucil, Colace, probiotics, prune juice, prune all of which can help. (2) Hypercholesterolemia: Code(s): E78.00 - Pure hypercholesterolemia, unspecified Plan: Avoid fried foods, chicken skin, eggs, butter margarine, pastries and meat. Be it pork or beef they have a lot of cholesterol LDL goal of less than 130 and triglyceride of less than 150 patient is on pravastatin 10 mg once a day September 2022 last blood work (3) Impaired glucose tolerance: Code(s): R73.02 - Impaired glucose tolerance (oral) Plan: Decrease the amount of carbohydrate intake, pasta, bread, rice and potatoes are all sugar and that is aside from all the sweet stuff, remember that fruits are good but they are Sweet also. Last hemoglobin A1c was 5.8 (4) Generalized anxiety disorder: Comment: Decline any referral for counseling Code(s): F41.1 - Generalized anxiety disorder Plan: Continue with alprazolam as needed (5) LLQ abdominal pain: Code(s): R10.32 - Left lower quadrant pain Plan: will do pelvic ultrasound Orders: Orders Comprehensive Met. Panel 4 Months E78.00 - Pure hypercholesterolemia, unspecified Thyroid Stimulating Hormone 4 Months E78.00 - Pure hypercholesterolemia, unspecified Complete Blood Count Auto Diff 4 Months E78.00 - Pure hypercholesterolemia, unspecified Free T4 (Free Thyroxine) 4 Months E78.00 - Pure hypercholesterolemia, unspecified Lipid Panel 4 Months E78.00 - Pure hypercholesterolemia, unspecified Vitamin B12 and Folate 4 Months E78.00 - Pure hypercholesterolemia, unspecified Vitamin D 25-OH Total 4 Months E78.00 - Pure hypercholesterolemia, unspecified Coding Level of Care Code Est Pt Level 4 (86013) Diagnoses Constipation K59.00 Hypercholesterolemia E78.00 Impaired glucose tolerance R73.02 Generalized anxiety disorder F41.1 LLQ abdominal pain R10.32
== END 2023-05-30 10:30 | disposition home or self-care (01) ==
PROVIDERS: PCP Internal Medicine; Visit Provider Internal Medicine
DX: K59.00 Constipation, unspecified (principal); E78.00 Pure hypercholesterolemia, unspecified; R73.02 Impaired glucose tolerance (oral); F41.1 Generalized anxiety disorder; R10.32 Left lower quadrant pain
CPT/HCPCS: 99214

== ENCOUNTER 2023-07-07 09:49 | Outpatient (REF) | payer MEDICARE, SELFPAY | END 2023-07-07 09:50 | disposition home or self-care (01) | LOC: HO.LAB 09:49 | PROVIDERS: PCP Internal Medicine; Visit Provider Internal Medicine | DX: Z13.89 Encounter for screening for other disorder (principal) ==

== ENCOUNTER 2023-07-10 12:31 | Outpatient (AMB) | payer MEDICARE, SELFPAY ==
--- NOTE | 2023-07-10 12:33 | MHC.PC.OV ---
Vital Signs 07/10/23 12:34 Height 5 ft 7 in Weight 139 lb BMI 21.8 BP 120/62 Blood Pressure Location Lt brachial Position Sitting Pulse 80 Pulse Source Pulse Oximeter Pulse Oximetry (%) 98 Oxygen Delivery Method Room Air Intake Visit Reasons: Annual Exam Intake Note: Patient here for a physical exam Compressor Operator Required: No Accompanied by: Self / Same As Patient Allergies atorvastatin [Lipitor] Allergy (Unknown, Verified 07/10/23 12:38) Unknown clarithromycin [From Biaxin] Allergy (Unknown, Verified 07/10/23 12:38) Unknown doxycycline Allergy (Unknown, Verified 07/10/23 12:38) rash, vision changes erythromycin base Allergy (Unknown, Verified 07/10/23 12:38) Unknown influenza virus vaccine tvs [id number](65 years up) [From Fluzone High-Dose 2017- (PF)] Allergy (Unknown, Verified 07/10/23 12:38) vomitting moxifloxacin [Avelox] Allergy (Unknown, Verified 07/10/23 12:38) Unknown omeprazole [Prilosec] Allergy (Unknown, Verified 07/10/23 12:38) Unknown scalp rx Penicillins Allergy (Unknown, Verified 07/10/23 12:38) UNKNOWN simvastatin Allergy (Unknown, Verified 07/10/23 12:38) Unknown Sulfa (Sulfonamide Antibiotics) Allergy (Unknown, Verified 07/10/23 12:38) SWELLING flu shot Adverse Reaction (Intermediate, Uncoded 07/10/23 13:00) coughing Medication List - Last Reconciled 07/10/23 by Tim Tucker MD alprazolam (Xanax) 0.25 mg PO DAILY PRN 90 days cholecalciferol (vitamin D3) 25 mcg PO DAILY coenzyme Q10 (Co Q-10) 200 mg PO DAILY docusate sodium (Stool Softener) 200 mg (2 x 100 mg) PO DAILY PRN lactobacillus combination no.4 (Probiotic) 3,000 mmu cells PO DAILY magnesium 200 mg PO DAILY pravastatin 10 mg PO DAILY Tobacco use date assessed: 05/30/23 Fall risk assessment: No Falls in past year Last assessed Fall Risk: 07/10/23 Dental Screening Dental Screen Date: 07/10/23 Did you have a dental visit in the last 12 months?: Yes Did you have a dental problem in the last 6 months where you did not have access to dental care?: No Was dental information given to patient?: Patient has dentist HPI Annual Exam HPI Details 78-year-old female with a history of hypercholesterolemia impaired glucose tolerance generalized anxiety disorder and constipation last seen in May 2023. Patient was complaining of left lower quadrant pain and was ordered for an ultrasound. Patient's colonoscopy is up-to-date bone density is up-to-date and mammograms up-to-date. FF UP WITH sushant FOR HX OF MELANOMA- [facility] Medical History (Updated 07/10/23 @ 12:43 by Tim Tucker MD) Constipation Breast cancer screening by mammogram Elevated blood pressure reading Osteoarthritis of right hip Anxiety Hypercholesterolemia Lumbar disc herniation Diverticulosis Surgical History Melanoma History of right hip replacement History of colectomy Hx of breast implants, bilateral Family History (Updated 07/10/23 @ 12:34 by ALFONSO Downing) Father CVD (cardiovascular disease) Mother CVD (cardiovascular disease) Diabetes Social History (Updated 07/10/23 @ 12:49 by Tim Tucker MD) Housing: House Alcohol intake: current Alcohol intake frequency: does not drink Alcohol type: wine Patient Tobacco Use Status: Former Tobacco user Tobacco use type: Cigarette Years Smoked: teenager e-Cigarette/Vaping Use: Never Used Second Hand Smoke Exposure: No service: No Current occupational status: retired Cognitive needs: No Hearing needs: No Vision needs: Yes Questionnaire Thrive Questionnaire Date Thrive assessed: 10/16/22 TEGAN-7 AMB Questionnaire TEGAN-7 Date TEGAN - 7 assessed: 10/16/22 Source: Developed by Drs. Meliton Lind, Barbara George, Leander Ibrahim and colleagues, with an educational prudencio from [employer]. Review of Systems Const Denies poor appetite and Denies weakness Eyes Denies no additional complaints ENT Reports Normal hearing present, Denies dizziness, Denies nasal congestion, Denies tinnitus and Denies sore throat Card Denies chest pain, Denies syncope, Denies rapid heart rate and Denies dyspnea Resp Denies cough and Denies dyspnea GI Denies change in stool character, Reports constipation, Denies diarrhea, Denies nausea and Denies vomiting Denies urinary frequency, Denies difficulty voiding and Denies dysuria Neuro Reports Normal hearing present, Denies confusion, Denies dizziness, Denies syncope and Denies weakness Psych Denies confusion Physical exam (Primary Care) Vital Signs: Last Vital Signs Pulse 80 07/10/23 12:34 BP 120/62 07/10/23 12:34 Pulse Ox 98 07/10/23 12:34 Oxygen Delivery Method Room Air 07/10/23 12:34 BMI result Body Mass Index 21.8 Tobacco/Smoking Status: Tobacco use Status Tobacco use date assessed 05/30/23 07/10/23 12:41 Patient Tobacco Use Status Former Tobacco user 07/10/23 12:49 Tobacco use type Cigarette 07/10/23 12:49 e-Cigarette/Vaping Use Never Used 07/10/23 12:49 Thrive Assessment: Date of Thrive Assessment Date Thrive assessed 10/16/22 07/10/23 12:41 Const General: No confusion Orientation/consciousness: No confusion HENMT Head: Yes normocephalic Ears: external ears normal and TM's normal bilaterally Face and sinus: Yes normal facial exam Mouth: moist mucous membranes Throat: Yes tonsils normal Eyes Conjunctivae: conjunctivae normal Pupils: Equal, round and reactive pupils present and Pupil accommodation reflex normal Direct Ophthalmoscopy: normal light reflex Neck Neck: No lymphadenopathy Thyroid: Thyroid normal Chest Chest palpation & inspection: normal inspection of the chest Resp Effort & Inspection: normal respiratory effort and no audible wheezes Auscultation: clear to auscultation bilaterally, no crackles, no wheezes and lung sounds not diminished Cardio Rate: regular rate Rhythm: regular rhythm Peripheral pulses: radial pulses present and dorsalis pedis present GI Palpation (GI): no masses Auscultation: normal bowel sounds and normoactive bowel sounds Rectal Exam - Female: deferred Skin General skin exam: no rashes or lesions noted Rashes: no rashes Neuro General: No confusion Cranial nerves: Yes Equal, round and reactive pupils present and Yes Normal hearing present Cognition (Neuro): normal cognition Gait exam (Neuro): Normal gait present Motor exam (neuro): 5/5 motor strength present throughout Deep tendon reflexes (DTR's): Right brachioradialis reflex intensity grade: 2+, Left brachioradialis reflex intensity grade: 2+, Right patellar reflex intensity grade: 2+ and Left patellar reflex intensity grade: 2+ Extrem General: No edema Office Procedures Flu Questionnaire Does the patient have a severe egg allergy?: No Does the patient have severe life threatening allergies?: No Does the patient have a fever or illness today?: No Has the patient ever had Guillain-[place] Syndrome?: No Has the patient ever had any past reaction to a flu shot?: Yes Immunizations flu vacc [id number] 6mos up(PF) 60 mcg(15 mcgx4)/0.5 mL IM syringe Performing Provider: Tim Tucker MD [facility] Documented (not given) by: ALFONSO Downing on 07/10/23 12:43 Reason Not Given: Patient Refused Assessment and Plan Assessment & Plan (1) Annual physical exam: Code(s): Z00.00 - Encounter for general adult medical examination without abnormal findings (2) Hypercholesterolemia: Code(s): E78.00 - Pure hypercholesterolemia, unspecified Plan: Avoid fried foods, chicken skin, eggs, butter margarine, pastries and meat. Be it pork or beef they have a lot of cholesterol LDL goal of less than 130 and triglyceride of less than 150. Patient on pravastatin 10 mg once a day (3) Impaired glucose tolerance: Code(s): R73.02 - Impaired glucose tolerance (oral) Plan: Decrease the amount of carbohydrate intake, pasta, bread, rice and potatoes are all sugar and that is aside from all the sweet stuff, remember that fruits are good but they are Sweet also. (4) Generalized anxiety disorder: Comment: Decline any referral for counseling Code(s): F41.1 - Generalized anxiety disorder Plan: Continue with the alprazolam as needed (5) LLQ abdominal pain: Code(s): R10.32 - Left lower quadrant pain (6) Constipation: Code(s): K59.00 - Constipation, unspecified Orders: Orders Influenza [id number] Immunization Today Z23 - Encounter for immunization Medications: Changed From docusate sodium (Stool Softener) 200 mg PO DAILY K59.00 - Constipation, unspecified To docusate sodium (Stool Softener) 200 mg (2 x 100 mg) PO DAILY PRN 180 caps 2RF constipation K59.00 - Constipation, unspecified Refilled pravastatin 10 mg PO DAILY 90 caps 3RF E78.00 - Pure hypercholesterolemia, unspecified Coding Level of Care Code New Pt Prev Care >65yr (97224) Diagnoses Annual physical exam Z00.00 Hypercholesterolemia E78.00 Impaired glucose tolerance R73.02 Generalized anxiety disorder F41.1 LLQ abdominal pain R10.32 Constipation K59.00
[2023-07-10 12:34] VITALS: BP 120/62; PULSE 80; O2SAT 98; BMI 21.8
== END 2023-07-10 13:10 | disposition home or self-care (01) ==
PROVIDERS: PCP Internal Medicine; Visit Provider Internal Medicine
DX: Z00.00 Encounter for general adult medical examination without abnormal findings (principal); E78.00 Pure hypercholesterolemia, unspecified; R73.02 Impaired glucose tolerance (oral); F41.1 Generalized anxiety disorder; R10.32 Left lower quadrant pain; K59.00 Constipation, unspecified
CPT/HCPCS: 99387

== ENCOUNTER 2023-09-11 12:37 | Outpatient (AMB) | payer MEDICARE, SELFPAY ==
[2023-09-11 12:42] VITALS: BP 120/78; PULSE 80; O2SAT 100
--- NOTE | 2023-09-11 12:42 | A.OFFPC_ITS ---
Vital Signs 09/11/23 12:42 Height 5 ft 7 in BP 120/78 Blood Pressure Location Lt brachial Position Sitting Pulse 80 Pulse Source Pulse Oximeter Pulse Oximetry (%) 100 Oxygen Delivery Method Room Air Intake Visit Reasons: Not sleeping due to pain Information Security Required: No Allergies atorvastatin [Lipitor] Allergy (Unknown, Verified 09/11/23 12:46) Unknown clarithromycin [From Biaxin] Allergy (Unknown, Verified 09/11/23 12:46) Unknown doxycycline Allergy (Unknown, Verified 09/11/23 12:46) rash, vision changes erythromycin base Allergy (Unknown, Verified 09/11/23 12:46) Unknown influenza virus vaccine tvs [id number](65 years up) [From Fluzone High-Dose 2017- (PF)] Allergy (Unknown, Verified 09/11/23 12:46) vomitting moxifloxacin [Avelox] Allergy (Unknown, Verified 09/11/23 12:46) Unknown omeprazole [Prilosec] Allergy (Unknown, Verified 09/11/23 12:46) Unknown scalp rx Penicillins Allergy (Unknown, Verified 09/11/23 12:46) UNKNOWN simvastatin Allergy (Unknown, Verified 09/11/23 12:46) Unknown Sulfa (Sulfonamide Antibiotics) Allergy (Unknown, Verified 09/11/23 12:46) SWELLING flu shot Adverse Reaction (Intermediate, Uncoded 09/11/23 12:46) coughing Tobacco use date assessed: 09/11/23 Fall risk assessment: No Falls in past year Last assessed Fall Risk: 09/11/23 HPI Not sleeping due to pain HPI Details 78-year-old female with a history of hyp ercholesterolemia impaired glucose tolerance and generalized anxiety disorder coming in for an acute problem. Review of the notes 08/04/2023 patient was seen by orthopedics for follow-up on the right total hip arthroplasty. Patient has trochanteric bursitis advised physical therapy/exercises and injections wich did not help and patient states severe R leg painand has been given by daughter /pregabalin which helps and is asking for this [facility] Medical History (Updated 09/11/23 @ 13:06 by Tim Tucker MD) Constipation Breast cancer screening by mammogram Elevated blood pressure reading Osteoarthritis of right hip Anxiety Hypercholesterolemia Lumbar disc herniation Diverticulosis Surgical History Melanoma History of right hip replacement History of colectomy Hx of breast implants, bilateral Family History (Updated 07/10/23 @ 12:34 by ALFONSO Downing) Father CVD (cardiovascular disease) Mother CVD (cardiovascular disease) Diabetes Social History (Updated 07/10/23 @ 12:49 by Tim Tucker MD) Housing: House Alcohol intake: current Alcohol intake frequency: does not drink Alcohol type: wine Patient Tobacco Use Status: Former Tobacco user Tobacco use type: Cigarette Years Smoked: teenager e-Cigarette/Vaping Use: Never Used Second Hand Smoke Exposure: No service: No Current occupational status: retired Cognitive needs: No Hearing needs: No Vision needs: Yes Questionnaire Thrive Questionnaire Date Thrive assessed: 10/16/22 AUDIT C Alcohol Use Questionnaire (AUDIT-C) 1. How often do you have a drink containing alcohol?: Monthly or less 2. How many drinks containing alcohol do you have on a typical day when you are drinking?: 1 or 2 3. How often do you have six or more drinks on one occasion?: Never Total Score: 1 Score Reviewed/Action Taken: No TEGAN-7 AMB Questionnaire TEGAN-7 Date TEGAN - 7 assessed: 10/16/22 Source: Developed by Drs. Meliton Lind, Barbara George, Leander Ibrahim and colleagues, with an educational prudencio from [employer]. Physical exam (Primary Care) Vital Signs: Last Vital Signs Pulse 80 09/11/23 12:42 BP 120/78 09/11/23 12:42 Pulse Ox 100 09/11/23 12:42 Oxygen Delivery Method Room Air 09/11/23 12:42 Tobacco/Smoking Status: Tobacco use Status Tobacco use date assessed 09/11/23 09/11/23 12:43 Patient Tobacco Use Status Former Tobacco user 09/11/23 12:43 Tobacco use type Cigarette 09/11/23 12:43 e-Cigarette/Vaping Use Never Used 09/11/23 12:43 Thrive Assessment: Date of Thrive Assessment Date Thrive assessed 10/16/22 09/11/23 12:43 Const General: alert; No acute distress Eyes Conjunctivae: conjunctivae normal Resp Auscultation: clear to auscultation bilaterally Cardio Rate: regular rate Rhythm: regular rhythm GI Inspection: Yes normal to inspection Extrem General: Yes normal to inspection and No edema Assessment and Plan Assessment & Plan (1) Trochanteric bursitis, right hip: Code(s): M70.61 - Trochanteric bursitis, right hip Plan: Patient has seen Orthopedics but with the injection did not help. (2) Right hip pain: Code(s): M25.551 - Pain in right hip Plan: Lyrica prescription sent in and discussed about the medication (3) Allergic rhinitis: Code(s): J30.9 - Allergic rhinitis, unspecified Plan: Discussed about taking medication if starting to get congested Medications: New pregabalin 75 mg PO BEDTIME 30 caps 0RF M25.551 - Pain in right hip Coding Level of Care Code Est Pt Level 3 (57957) Diagnoses Trochanteric bursitis, right hip M70.61 Right hip pain M25.551 Allergic rhinitis J30.9
== END 2023-09-11 13:08 | disposition home or self-care (01) ==
PROVIDERS: PCP Internal Medicine; Visit Provider Internal Medicine
DX: M70.61 Trochanteric bursitis, right hip (principal); M25.551 Pain in right hip; J30.9 Allergic rhinitis, unspecified
CPT/HCPCS: 99213

== ENCOUNTER 2023-11-05 07:52 | Outpatient (REF) | payer MEDICARE, SELFPAY ==
[2023-11-05 08:05] LABS: MANUAL DIFF FLAG NO
[2023-11-05 08:17] LABS: Basophils Percent Auto 0.6 % (0-2); Eosinophils Absolute Auto 0.1 X10*3/uL (0.0-0.4); Eosinophils Percent Auto 2.6 % (0-4); Hematocrit 43.5 % (37.0-47.0); Hemoglobin 14.5 g/dl (12.0-16.0); Imm Gran Abs Auto 0.01 X10*3/uL (0.00-0.03); Imm Gran Pct Auto 0.2 % (0.0-0.4); Lymphocytes Absolute Auto 1.4 X10*3/uL (1.2-4.9); Lymphocytes Percent Auto 27.4 % (20-40); Mean Corpuscular HGB Conc 33.3 g/dl (31.0-35.0); Mean Corpuscular Hemoglobin 31.2 pg (27.0-33.0); Mean Corpuscular Volume 93.5 fL (80.0-98.0); Mean Platelet Volume 10.9 fL (9.4-12.3); Monocytes Absolute Auto 0.4 X10*3/uL (0.1-1.2); Monocytes Percent Auto 7.9 % (2-11); Neutrophils Percent Auto 61.3 % (45-73); Platelet Count 141 X10*3/uL (160-400); Red Blood Count 4.65 X10*6/uL (4.20-5.50); Red Cell Distribution Width 12.4 % (11.0-16.0); White Blood Count 4.9 X10*3/uL (4.8-10.8)
[2023-11-05 08:30] LABS: Alanine Aminotransferase 12 U/L (0-31); Albumin Level 4.3 g/dL (3.5-5.0); Alkaline Phosphatase 69 U/L (39-117); Anion Gap 13 (12-20); Aspartate Amino Transferase 16 U/L (5-31); Bilirubin Total 0.6 mg/dL (0.0-1.0); Blood Urea Nitrogen 12 mg/dL (9-16); Calcium 9.8 mg/dL (8.4-10.2); Carbon Dioxide 28 mmol/L (22-29); Chloride 106 mmol/L (96-108); Cholesterol 201 mg/dL (<200); Estimated Glomerular Filt Rate 41; Glucose Random 119 mg/dL (60-115); HDL Cholesterol 54 mg/dL (>40); LDL Cholesterol Calculated 114 mg/dL (<100); Potassium 4.8 mmol/L (3.3-5.1); Sodium 142 mmol/L (135-145); Total Protein 6.9 g/dL (6.5-8.0); Triglycerides 166 mg/dL (<150)
[2023-11-05 08:51] LABS: Free T4 (Free Thyroxine) 0.85 ng/dL (0.71-1.85); Thyroid Stimulating Hormone 1.94 uIU/mL (0.32-4.0)
[2023-11-05 09:02] LABS: Folate 11.9 ng/mL (> or = 4.0); Vitamin B12 325 pg/mL (200-900)
== END 2023-11-05 07:53 | disposition home or self-care (01) ==
LOC: HO.LAB 07:52
PROVIDERS: PCP Internal Medicine; Visit Provider Internal Medicine
DX: E78.00 Pure hypercholesterolemia, unspecified (principal)
CPT/HCPCS: 36415; 80053; 80061; 82306; 82607; 82746; 84439; 84443; 85025

== ENCOUNTER 2023-11-10 09:40 | Outpatient (AMB) | payer MEDICARE, SELFPAY ==
--- NOTE | 2023-11-10 09:49 | MHC.PC.OV ---
Vital Signs 11/10/23 09:51 Height 5 ft 7 in Weight 138 lb 4 oz BMI 21.7 BP 130/80 Blood Pressure Location Lt brachial Position Sitting Pulse 63 Pulse Source Pulse Oximeter Pulse Oximetry (%) 100 Oxygen Delivery Method Room Air Intake Visit Reasons: cholesterol Intake Note: Patient is here to follow up on Cholesterol and lab results. Public Works Inspector Required: No Manager Concrete: Not Required per policy Accompanied by: Self / Same As Patient Allergies atorvastatin [Lipitor] Allergy (Unknown, Verified 11/10/23 09:51) Unknown clarithromycin [From Biaxin] Allergy (Unknown, Verified 11/10/23 09:51) Unknown doxycycline Allergy (Unknown, Verified 11/10/23 09:51) rash, vision changes erythromycin base Allergy (Unknown, Verified 11/10/23 09:51) Unknown influenza virus vaccine tvs [id number](65 years up) [From Fluzone High-Dose 2017- (PF)] Allergy (Unknown, Verified 11/10/23 09:51) vomitting moxifloxacin [Avelox] Allergy (Unknown, Verified 11/10/23 09:51) Unknown omeprazole [Prilosec] Allergy (Unknown, Verified 11/10/23 09:51) Unknown scalp rx simvastatin Allergy (Unknown, Verified 11/10/23 09:51) Unknown Sulfa (Sulfonamide Antibiotics) Allergy (Unknown, Verified 11/10/23 09:51) SWELLING flu shot Adverse Reaction (Intermediate, Uncoded 09/11/23 12:46) coughing Medication List - Last Reconciled 11/10/23 by Tim Tucker MD alprazolam (Xanax) 0.25 mg PO DAILY PRN 90 days cholecalciferol (vitamin D3) 25 mcg PO DAILY coenzyme Q10 (Co Q-10) 200 mg PO DAILY docusate sodium (Stool Softener) 200 mg (2 x 100 mg) PO DAILY PRN lactobacillus combination no.4 (Probiotic) 3,000 mmu cells PO DAILY magnesium 200 mg PO DAILY magnesium glycinate 100 mg PO DAILY pravastatin 10 mg PO DAILY pregabalin 75 mg PO BEDTIME Tobacco use date assessed: 11/10/23 Fall risk assessment: No Falls in past year Last assessed Fall Risk: 11/10/23 Dental Screening Dental Screen Date: 11/10/23 Did you have a dental visit in the last 12 months?: Yes Did you have a dental problem in the last 6 months where you did not have access to dental care?: No Was dental information given to patient?: Patient has dentist HPI cholesterol HPI Details 78-year-old female with a history of impaired glucose tolerance hypercholesterolemia generalized anxiety disorder last seen in August having right hip pain and is given Lyrica as the shot/injection given did not help. Patient is here for follow-up. stopped lyrica and concern on pain [facility] Medical History (Updated 09/11/23 @ 13:06 by Tim Tucker MD) Constipation Breast cancer screening by mammogram Elevated blood pressure reading Osteoarthritis of right hip Anxiety Hypercholesterolemia Lumbar disc herniation Diverticulosis Surgical History Melanoma History of right hip replacement History of colectomy Hx of breast implants, bilateral Family History Father CVD (cardiovascular disease) Mother CVD (cardiovascular disease) Diabetes Social History Housing: House Alcohol intake: current Alcohol intake frequency: does not drink Alcohol type: wine Patient Tobacco Use Status: Former Tobacco user Tobacco use type: Cigarette Years Smoked: teenager e-Cigarette/Vaping Use: Never Used Second Hand Smoke Exposure: No service: No Current occupational status: retired Cognitive needs: No Hearing needs: No Vision needs: Yes Questionnaire PHQ-9 Over the last 2 weeks, how often have you been bothered by any of the following problems? 1. Little interest or pleasure in doing things: not at all 2. Feeling down, depressed, or hopeless: not at all 3. Trouble falling or staying asleep, or sleeping too much: not at all 4. Feeling tired or having little energy: not at all 5. Poor appetite or overeating: not at all 6. Feeling bad about yourself - or that you are a failure or have let yourself or your family down: not at all 7. Trouble concentrating on things, such as reading the newspaper or watching television: not at all 8. Moving or speaking so slowly that other people could have noticed. Or the opposite - being so fidgety or restless that you have been moving around a lot more than usual: not at all 9. Thoughts that you would be better off or of hurting yourself in some way: not at all Total score: 0 Depression Screening Interpretation: Negative Depression Screening Done: Yes Source: Developed by Drs. Meliton Lind, Leander Farias and colleagues, with an educational prudencio from [employer]. Thrive Questionnaire Date Thrive assessed: 11/10/23 I am a: Patient What is your living situation today?: I have a steady place to live Within the past 12 months, did the food you bought not last and you didn't have the money to get more?: Never true Within the past 12 months, did you worry whether your food would run out before you got money to buy more?: Never true Do you have trouble paying for medicines?: No Do you have trouble getting transportation to medical appointments?: No Do you have trouble paying your heating and electricity bill?: No Do you have trouble taking care of your child, family member or friend?: No Do you have trouble with day-to-day activities such as bathing, preparing meals, shopping, managing finances, etc.?: No Are you currently unemployed and looking for a job?: No Are you interested in more education?: No Currently or been in a relationship where the following occur: no concerns reported THRIVE Score: 0 AUDIT C Alcohol Use Questionnaire (AUDIT-C) 1. How often do you have a drink containing alcohol?: Never Total Score: 0 TEGAN-7 AMB Questionnaire TEGAN-7 Date TEGAN - 7 assessed: 11/10/23 Feeling nervous, anxious, or on edge: 1 = Several days Not being able to stop or control worryin = Several days Worrying too much about different things: 1 = Several days Trouble relaxin = Several days Being so restless that it is hard to sit still: 0 = Not at all Becoming easily annoyed or irritable: 0 = Not at all Feeling afraid as if something awful might happen: 1 = Several days Total TEGAN-7 score (0-4 normal; 5-9 mild; 10-14 moderate; 15-21 severe): 5 Source: Developed by Drs. Meliton Lind, Leander Farias and colleagues, with an educational prudencio from [employer]. Physical exam (Primary Care) Vital Signs: Last Vital Signs Pulse 63 11/10/23 09:51 BP 130/80 11/10/23 09:51 Pulse Ox 100 11/10/23 09:51 Oxygen Delivery Method Room Air 11/10/23 09:51 BMI result Body Mass Index 21.7 Tobacco/Smoking Status: Tobacco use Status Tobacco use date assessed 11/10/23 11/10/23 09:54 Patient Tobacco Use Status Former Tobacco user 11/10/23 09:54 Tobacco use type Cigarette 11/10/23 09:54 e-Cigarette/Vaping Use Never Used 11/10/23 09:54 PHQ-9: PHQ-9 Score PHQ-9: Total score 0 11/10/23 10:00 Depression Screening Interpretation: Negative Thrive Assessment: Date of Thrive Assessment Date Thrive assessed 11/10/23 11/10/23 09:54 Currently or been in a relationship where the following occur: no concerns reported Const General: alert; No acute distress Eyes Conjunctivae: conjunctivae normal Resp Auscultation: clear to auscultation bilaterally Cardio Rate: regular rate Rhythm: regular rhythm GI Inspection: Yes normal to inspection Extrem General: Yes normal to inspection and No edema Assessment and Plan Assessment & Plan (1) Impaired glucose tolerance: Code(s): R73.02 - Impaired glucose tolerance (oral) Plan: Decrease the amount of carbohydrate intake, pasta, bread, rice and potatoes are all sugar and that is aside from all the sweet stuff, remember that fruits are good but they are Sweet also. (2) Hypercholesterolemia: Code(s): E78.00 - Pure hypercholesterolemia, unspecified Plan: Avoid fried foods, chicken skin, eggs, butter margarine, pastries and meat. Be it pork or beef they have a lot of cholesterol LDL goal of less than 130 and triglyceride of less than 150. Patient on pravastatin 10 mg once a day (3) Generalized anxiety disorder: Comment: Decline any referral for counseling Code(s): F41.1 - Generalized anxiety disorder Plan: Continue with present medication as needed (4) Trochanteric bursitis, right hip: Code(s): M70.61 - Trochanteric bursitis, right hip Plan: Patient has been placed on pregabalin to help with pain. Orders: Orders PT Evaluation and Treatment Today M70.61 - Trochanteric bursitis, right hip Medications: Refilled pregabalin 75 mg PO BEDTIME 30 caps 0RF M25.551 - Pain in right hip Coding Level of Care Code Est Pt Level 4 (30064) Diagnoses Impaired glucose tolerance R73.02 Hypercholesterolemia E78.00 Generalized anxiety disorder F41.1 Trochanteric bursitis, right hip M70.61
[2023-11-10 09:51] VITALS: BP 130/80; PULSE 63; O2SAT 100; BMI 21.7
== END 2023-11-10 10:19 | disposition home or self-care (01) ==
PROVIDERS: PCP Internal Medicine; Visit Provider Internal Medicine
DX: R73.02 Impaired glucose tolerance (oral) (principal); E78.00 Pure hypercholesterolemia, unspecified; F41.1 Generalized anxiety disorder; M70.61 Trochanteric bursitis, right hip
CPT/HCPCS: 99214

== ENCOUNTER 2024-01-14 10:50 | Outpatient (REF) | payer MEDICARE, SELFPAY ==
--- NOTE | ~2024-01-14 | US_ITS ---
EXAMINATION: MM DIAGNOSTIC DIGITAL BREAST TOMOSYNTHESIS, BILATERAL US BREAST LIMITED, LEFT CLINICAL INFORMATION: Bilateral screening examination with bilateral silicone implants. Diagnostic for evaluation of oval mass within the left implant fibrous capsule, which began in November 2021. This will be for two-year stability if unchanged and hence benign. COMPARISON: Mammography: 01/09/2023, 07/05/2022, 01/03/2022 (BI-RADS 3) and studies dating back to 07/25/2016. LEFT ULTRASOUND: 01/09/2023, 07/05/2022, 01/03/2022 (BI-RADS 3). TECHNIQUE: Digital mammography is performed in craniocaudal and mediolateral oblique views. Digital breast tomosynthesis is performed in implant-displaced craniocaudal and implant-displaced mediolateral oblique views. Synthesized 2D images are generated from the tomosynthesis. Computer-aided detection (CAD) is performed for this exam. A second full-field left non-implant displaced 2-D MLO view was obtained for improved visualization of the inframammary fold. FINDINGS: There are scattered areas of fibroglandular density (ACR BI-RADS breast composition Category b). Implant contours are somewhat irregular, and there is clear extravasation of silicone inferiorly on the right, and superiorly on the left. Findings are consistent with implant rupture, unchanged from priors. There is a stable approximately 7 mm asymmetry in the approximate 1:00 axis of the left breast, most notable on the implant displaced view left MLO, known to represent the mass for follow-up. Otherwise, no suspicious masses, suspicious grouped calcifications, or developing areas of architectural distortion in either breast. The overall parenchymal pattern is stable from prior exams. There is no skin or axillary abnormality identified. ULTRASOUND: CLINICAL INFORMATION: Evaluate oval mass in the left breast 1:00 axis, 7 cm from the nipple, within the fibrous capsule of the left implant. COMPARISON: 01/09/2023, 07/05/2022, 01/03/2022. TECHNIQUE: Targeted sonographic evaluation was performed using a high frequency linear transducer. Attention was given to the 1:00 axis of the left breast. Selected archived documentation. FINDINGS: LEFT BREAST: -Within the fibrous capsule of the left implant, left breast, 1:00 axis, 7 cm from the nipple, there is a stable and unchanged oval wider than tall isoechoic mass with some ring down/dirty shadowing, no internal blood flow, circumscribed margins, measuring a stable 7 x 4 x 6 mm (allowing for differences in technique). 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 This could also potentially represent a small fibroadenoma. It has remained stable over 2 years and is benign. No further follow-up recommended. No additional sonographic abnormality is noted in the area interrogated. US/US breast LT limited mamm only IMPRESSION: There are no findings suspicious for malignancy in either breast. There are benign findings unchanged from the prior studies. The mass at 1:00 is unchanged in the left breast and may represent a silicone granuloma or fibroadenoma, either way benign and unchanged over 2 years. No further follow-up recommended. There is evidence for bilateral extracapsular implant rupture. There is likely extravasated silicone in both breasts. This finding is unchanged. Recommend the patient resume routine annual screening mammography to include both breasts. OVERALL ASSESSMENT: Mammography: BI-RADS 2 - Benign Findings Ultrasound: BI-RADS 2 - Benign Findings RECOMMENDATION: 1 year F/U This patient's information was entered into a reminder system with a target due date for their next mammogram.
== END 2024-01-14 10:51 | disposition home or self-care (01) ==
LOC: HO.MAMMO 10:50
PROVIDERS: PCP Internal Medicine; Visit Provider Internal Medicine
DX: R92.2 Inconclusive mammogram (principal)
CPT/HCPCS: 76642; 77062; 77066

== ENCOUNTER → 2024-01-14 11:30 | Outpatient (BNV) | payer MEDICARE, SELFPAY | PROVIDERS: PCP Internal Medicine; Visit Provider Radiology Diagnostic Radiology | DX: N63.21 Unspecified lump in the left breast, upper outer quadrant (principal); T85.43XA Leakage of breast prosthesis and implant, initial encounter | CPT/HCPCS: 76642; 77066; G0279 ==

== ENCOUNTER 2024-02-12 10:14 | Outpatient (REF) | payer MEDICARE, SELFPAY ==
[2024-02-12 11:46] LABS: Appearance Urine Clear; Color Urine Yellow; Glucose Urine UA Negative (Negative); Leukocyte Esterase Urine Moderate (2+) (Negative); Nitrite Urine Negative (Negative); UMIC TRIGGER UA YES; Urine Blood Negative (Negative); Urine Ketones Negative (Negative); Urine Protein Negative (Neg-Trace)
[2024-02-12 11:59] LABS: Bacteria Urine None Seen (None Seen); Hyaline Casts Urine 0-2 /LPF (0-2); RBC Urine 0-2 /HPF (0-2)
[2024-02-12 12:49] LABS: Creatinine Urine 57.64 mg/dL; Total Protein Urine Random < 7 mg/dL (<12)
== END 2024-02-12 10:15 | disposition home or self-care (01) ==
LOC: HO.LAB 10:14
PROVIDERS: PCP Internal Medicine; Visit Provider Internal Medicine Nephrology
DX: N18.32 Chronic kidney disease, stage 3b (principal)
CPT/HCPCS: 81001; 82570; 84156

== ENCOUNTER 2024-07-13 10:50 | Outpatient (AMB) | payer MEDICARE, SELFPAY ==
--- NOTE | 2024-07-13 10:56 | A.OFFPC_ITS ---
Vital Signs 07/13/24 10:58 Height 5 ft 7 in Weight 136 lb BMI 21.3 BP 140/66 H Blood Pressure Location Lt brachial Position Sitting Pulse 86 Pulse Source Pulse Oximeter Pulse Oximetry (%) 97 Oxygen Delivery Method Room Air Intake Visit Reasons: Annual Exam Intake Note: Patient is here today for a physical. Pt decline flu shot today. Senior Mortgage Loan Processor Required: No Air Intelligence Specialist: Not Required per policy Accompanied by: Self / Same As Patient Allergies atorvastatin [Lipitor] Allergy (Unknown, Verified 07/13/24 10:57) Unknown clarithromycin [From Biaxin] Allergy (Unknown, Verified 07/13/24 10:57) Unknown doxycycline Allergy (Unknown, Verified 07/13/24 10:57) rash, vision changes erythromycin base Allergy (Unknown, Verified 07/13/24 10:57) Unknown influenza virus vaccine [facility] 5303-[facility]21(65 years up) [From Fluzone High-Dose 2017- (PF)] Allergy (Unknown, Verified 07/13/24 10:57) vomitting moxifloxacin [Avelox] Allergy (Unknown, Verified 07/13/24 10:57) Unknown omeprazole [Prilosec] Allergy (Unknown, Verified 07/13/24 10:57) Unknown scalp rx simvastatin Allergy (Unknown, Verified 07/13/24 10:57) Unknown Sulfa (Sulfonamide Antibiotics) Allergy (Unknown, Verified 07/13/24 10:57) SWELLING flu shot Adverse Reaction (Intermediate, Uncoded 07/13/24 10:57) coughing Medication List - Last Reconciled 07/13/24 by Tim Tucker MD alprazolam (Xanax) 0.25 mg PO DAILY PRN 90 days cholecalciferol (vitamin D3) 25 mcg PO DAILY coenzyme Q10 (Co Q-10) 200 mg PO DAILY docusate sodium (Stool Softener) 200 mg (2 x 100 mg) PO DAILY PRN magnesium 200 mg PO DAILY magnesium glycinate 100 mg PO DAILY pravastatin 10 mg PO DAILY pregabalin 75 mg PO BEDTIME Tobacco use date assessed: 11/10/23 Fall risk assessment: No Falls in past year Last assessed Fall Risk: 07/13/24 Dental Screening Dental Screen Date: 11/10/23 HPI Annual Exam HPI Details 79-year-old female with a history of imp aired glucose tolerance hypercholesterolemia generalized anxiety disorder coming in for physical exam last seen in October 2023. Patient's colon test is up-to-date 2020, bone density 01/09/2023 and mammogram 01/10/2024. 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 BP outside has been below 140 SBP [facility] Medical History (Updated 07/13/24 @ 11:41 by Tim Tucker MD) Constipation Breast cancer screening by mammogram Elevated blood pressure reading Osteoarthritis of right hip Anxiety Hypercholesterolemia Lumbar disc herniation Diverticulosis Surgical History Melanoma History of right hip replacement History of colectomy Hx of breast implants, bilateral Family History Father CVD (cardiovascular disease) Mother CVD (cardiovascular disease) Diabetes Social History (Updated 07/13/24 @ 11:49 by Tim Tucker MD) Housing: House Alcohol intake: current Alcohol intake frequency: does not drink Alcohol type: wine Comment: once Q 2 months 1 drink Patient Tobacco Use Status: Former Tobacco user Tobacco use type: Cigarette Years Smoked: teenager e-Cigarette/Vaping Use: Never Used Second Hand Smoke Exposure: No service: No Current occupational status: retired Cognitive needs: No Hearing needs: No Vision needs: Yes Questionnaire PHQ-9 Over the last 2 weeks, how often have you been bothered by any of the following problems? 1. Little interest or pleasure in doing things: not at all 2. Feeling down, depressed, or hopeless: not at all 3. Trouble falling or staying asleep, or sleeping too much: several days 4. Feeling tired or having little energy: several days 5. Poor appetite or overeating: not at all 6. Feeling bad about yourself - or that you are a failure or have let yourself or your family down: not at all 7. Trouble concentrating on things, such as reading the newspaper or watching television: not at all 8. Moving or speaking so slowly that other people could have noticed. Or the opposite - being so fidgety or restless that you have been moving around a lot more than usual: not at all 9. Thoughts that you would be better off or of hurting yourself in some way: not at all Total score: 2 Depression Screening Interpretation: Positive Depression Screening Done: Yes Source: Developed by Drs. Meliton Lind, Barbara George, Leander Ibrahim and colleagues, with an educational prudencio from [employer]. Thrive Questionnaire Date Thrive assessed: 07/13/24 I am a: Patient What is your living situation today?: I have a steady place to live Within the past 12 months, did the food you bought not last and you didn't have the money to get more?: Never true Within the past 12 months, did you worry whether your food would run out before you got money to buy more?: Never true Do you have trouble paying for medicines?: No Do you have trouble getting transportation to medical appointments?: Yes Do you have trouble paying your heating and electricity bill?: No Do you have trouble taking care of your child, family member or friend?: No Do you have trouble with day-to-day activities such as bathing, preparing meals, shopping, managing finances, etc.?: I choose not to answer this question Are you currently unemployed and looking for a job?: No Are you interested in more education?: No Please select the resources that you would like help with: None Currently or been in a relationship where the following occur: I choose not to answer THRIVE Score: 1 AUDIT C Alcohol Use Questionnaire (AUDIT-C) 1. How often do you have a drink containing alcohol?: Monthly or less 2. How many drinks containing alcohol do you have on a typical day when you are drinking?: 1 or 2 3. How often do you have six or more drinks on one occasion?: Never Total Score: 1 TEGAN-7 AMB Questionnaire TEGAN-7 Date TEGAN - 7 assessed: 07/13/24 Feeling nervous, anxious, or on edge: 1 = Several days Not being able to stop or control worryin = Several days Worrying too much about different things: 1 = Several days Trouble relaxin = Several days Being so restless that it is hard to sit still: 0 = Not at all Becoming easily annoyed or irritable: 1 = Several days Feeling afraid as if something awful might happen: 1 = Several days Total TEGAN-7 score (0-4 normal; 5-9 mild; 10-14 moderate; 15-21 severe): 6 Source: Developed by Drs. Meliton Lind, Barbara George, Leander Ibrahim and colleagues, with an educational prudencio from [employer]. Review of Systems Const Denies poor appetite and Denies weakness Eyes Denies no additional complaints ENT Reports Normal hearing present, Denies dizziness, Denies nasal congestion, Denies tinnitus and Denies sore throat Card Denies chest pain, Denies syncope, Denies rapid heart rate and Denies dyspnea Resp Denies cough and Denies dyspnea GI Denies change in stool character, Reports constipation, Denies diarrhea, Denies nausea and Denies vomiting Denies urinary frequency, Denies difficulty voiding and Denies dysuria Neuro Reports Normal hearing present, Denies confusion, Denies dizziness, Denies syncope and Denies weakness Psych Denies confusion Physical exam (Primary Care) Vital Signs: Last Vital Signs Pulse 86 07/13/24 10:58 BP 140/66 H 07/13/24 10:58 Pulse Ox 97 07/13/24 10:58 Oxygen Delivery Method Room Air 07/13/24 10:58 BMI result Body Mass Index 21.3 Tobacco/Smoking Status: Tobacco use Status Tobacco use date assessed 11/10/23 07/13/24 10:56 Patient Tobacco Use Status Former Tobacco user 07/13/24 10:56 Tobacco use type Cigarette 07/13/24 10:56 e-Cigarette/Vaping Use Never Used 07/13/24 10:56 PHQ-9: PHQ-9 Score PHQ-9: Total score 2 07/13/24 11:07 Depression Screening Interpretation: Positive Thrive Assessment: Date of Thrive Assessment Date Thrive assessed 07/13/24 07/13/24 11:07 Currently or been in a relationship where the following occur: I choose not to answer Const General: No confusion Orientation/consciousness: No confusion HENMT Head: Yes normocephalic Ears: external ears normal and TM's normal bilaterally Face and sinus: Yes normal facial exam Mouth: moist mucous membranes Throat: Yes tonsils normal Eyes Conjunctivae: conjunctivae normal Pupils: Equal, round and reactive pupils present and Pupil accommodation reflex normal Direct Ophthalmoscopy: normal light reflex Neck Neck: No lymphadenopathy Thyroid: Thyroid normal Chest Chest palpation & inspection: normal inspection of the chest Resp Effort & Inspection: normal respiratory effort and no audible wheezes Auscultation: clear to auscultation bilaterally, no crackles, no wheezes and lung sounds not diminished Cardio Rate: regular rate Rhythm: regular rhythm Peripheral pulses: radial pulses present and dorsalis pedis present GI Palpation (GI): no masses Auscultation: normal bowel sounds and normoactive bowel sounds Rectal Exam - Female: deferred Skin General skin exam: no rashes or lesions noted Rashes: no rashes Neuro General: No confusion Cranial nerves: Yes Equal, round and reactive pupils present and Yes Normal hearing present Cognition (Neuro): normal cognition Gait exam (Neuro): Normal gait present Motor exam (neuro): 5/5 motor strength present throughout Deep tendon reflexes (DTR's): Right brachioradialis reflex intensity grade: 2+, Left brachioradialis reflex intensity grade: 2+, Right patellar reflex intensity grade: 2+ and Left patellar reflex intensity grade: 2+ Extrem General: No edema Results AMB Hemoglobin A1c AMB Hemoglobin A1c 5.8 % Last Edit by ALFONSO Schrader on 07/13/24 11:11 Results Reviewed Results Reviewed: Laboratory Last Values Hgb A1c (Clinic) 5.8 % (4.0-6.0) 07/13/24 10:56 Coding Level of Care Code Est Pt Prev Care >65y(38427) Diagnoses Annual physical exam Z00.00 Impaired glucose tolerance R73.02 Hypercholesterolemia E78.00 Generalized anxiety disorder F41.1 Chronic kidney disease, stage 3b N18.32 Assessment & Plan Assessment & Plan (1) Annual physical exam: Code(s): Z00.00 - Encounter for general adult medical examination without abnormal fin dings Category: Medical Plan: Patient is advised to eat healthy, keep well hydrated, keep active and have adequate sleep. (2) Impaired glucose tolerance: Code(s): R73.02 - Impaired glucose tolerance (oral) Category: Medical Plan: Decrease the amount of carbohydrate intake, pasta, bread, rice and potatoes are all sugar and that is aside from all the sweet stuff, remember that fruits are good but they are Sweet also. (3) Hypercholesterolemia: Code(s): E78.00 - Pure hypercholesterolemia, unspecified Category: Medical Plan: Avoid fried foods, chicken skin, eggs, butter margarine, pastries and meat. Be it pork or beef they have a lot of cholesterol pravastatin (4) Generalized anxiety disorder: Comment: Decline any referral for counseling Code(s): F41.1 - Generalized anxiety disorder Category: Medical Plan: Continue with present medication (5) Chronic kidney disease, stage 3b: Code(s): N18.32 - Chronic kidney disease, stage 3b Category: Medical Plan: Keep well hydrated patient has followed up with Nephrology avoid NSAIDs Orders: Orders Free T4 (Free Thyroxine) 4 Months R73.02 - Impaired glucose tolerance (oral) Thyroid Stimulating Hormone 4 Months R73.02 - Impaired glucose tolerance (oral) Hemoglobin A1c 4 Months R73.02 - Impaired glucose tolerance (oral) Lipid Panel 4 Months E78.00 - Pure hypercholesterolemia, unspecified, R73.02 - Impaired glucose tolerance (oral) Vitamin B12 and Folate 4 Months R73.02 - Impaired glucose tolerance (oral) Vitamin D 25-OH Total 4 Months R73.02 - Impaired glucose tolerance (oral) AMB Hemoglobin A1c Today R73.02 - Impaired glucose tolerance (oral) Complete Blood Count Auto Diff 4 Months R73.02 - Impaired glucose tolerance (oral) Comprehensive Met. Panel 4 Months R73.02 - Impaired glucose tolerance (oral)
[2024-07-13 10:58] VITALS: BP 140/66; PULSE 86; O2SAT 97; BMI 21.3
== END 2024-07-13 12:04 | disposition home or self-care (01) ==
PROVIDERS: PCP Internal Medicine; Visit Provider Internal Medicine
DX: Z00.00 Encounter for general adult medical examination without abnormal findings (principal); N18.32 Chronic kidney disease, stage 3b; R73.02 Impaired glucose tolerance (oral); E78.00 Pure hypercholesterolemia, unspecified; F41.1 Generalized anxiety disorder

== ENCOUNTER → 2024-07-13 10:50 | Outpatient (BNVA) | payer MEDICARE, SELFPAY | PROVIDERS: PCP Internal Medicine; Visit Provider Internal Medicine | DX: Z00.00 Encounter for general adult medical examination without abnormal findings (principal); R73.02 Impaired glucose tolerance (oral); E78.00 Pure hypercholesterolemia, unspecified; F41.1 Generalized anxiety disorder; N18.32 Chronic kidney disease, stage 3b | CPT/HCPCS: 83036; 96127; 99397 ==

== ENCOUNTER 2025-01-05 10:12 | Outpatient (REF) | payer MEDICARE, SELFPAY ==
[2025-01-05 10:24] LABS: MANUAL DIFF FLAG NO
[2025-01-05 10:42] LABS: Estimated Average Glucose 123 mg/dL; Hemoglobin A1C 159.3867 umol/L; Hemoglobin A1c % 5.9 % (<6.0); Total Hemoglobin (HGBA1C) 3884.0475 umol/L
[2025-01-05 10:48] LABS: Basophils Percent Auto 0.7 % (0-2); Eosinophils Absolute Auto 0.1 X10*3/uL (0.0-0.4); Eosinophils Percent Auto 1.8 % (0-4); Hematocrit 42.5 % (37.0-47.0); Hemoglobin 14.3 g/dl (12.0-16.0); Imm Gran Abs Auto 0.02 X10*3/uL (0.00-0.03); Imm Gran Pct Auto 0.5 % (0.0-0.4); Lymphocytes Absolute Auto 1.1 X10*3/uL (1.2-4.9); Lymphocytes Percent Auto 24.8 % (20-40); Mean Corpuscular HGB Conc 33.6 g/dl (31.0-35.0); Mean Corpuscular Hemoglobin 31.3 pg (27.0-33.0); Mean Platelet Volume 11.1 fL (9.4-12.3); Monocytes Absolute Auto 0.4 X10*3/uL (0.1-1.2); Monocytes Percent Auto 7.9 % (2-11); Neutrophils Absolute Auto 2.9 x10*3/uL (2.0-8.3); Neutrophils Percent Auto 64.3 % (45-73); Platelet Count 138 X10*3/uL (160-400); Red Blood Count 4.57 X10*6/uL (4.20-5.50); Red Cell Distribution Width 12.7 % (11.0-16.0); White Blood Count 4.4 X10*3/uL (4.8-10.8)
[2025-01-05 11:24] LABS: Alanine Aminotransferase 18 U/L (0-31); Albumin Level 4.4 g/dL (3.5-5.0); Alkaline Phosphatase 69 U/L (39-117); Anion Gap 11 (12-20); Aspartate Amino Transferase 24 U/L (5-31); Bilirubin Total 0.5 mg/dL (0.0-1.0); Blood Urea Nitrogen 25 mg/dL (9-16); Calcium 9.9 mg/dL (8.4-10.2); Carbon Dioxide 28 mmol/L (22-29); Chloride 108 mmol/L (96-108); Cholesterol 197 mg/dL (<200); Estimated Glomerular Filt Rate 43; Glucose Random 108 mg/dL (60-115); HDL Cholesterol 53 mg/dL (>40); LDL Cholesterol Calculated 123 mg/dL (<100); Sodium 142 mmol/L (135-145); Total Protein 6.8 g/dL (6.5-8.0); Triglycerides 108 mg/dL (<150)
[2025-01-05 11:28] LABS: Free T4 (Free Thyroxine) 0.94 ng/dL (0.71-1.85); Thyroid Stimulating Hormone 1.38 uIU/mL (0.32-4.0); Vitamin D 25-OH Total 31.1 ng/mL (>30)
[2025-01-05 11:40] LABS: Folate 14.7 ng/mL (> or = 4.0); Vitamin B12 342 pg/mL (200-900)
--- OUTSIDE RECORDS SUMMARY | 2025-01-05 11:48 | XMS_ITS | Encounter Summary ---
Author Organization [facility] Address [address] [place] [address] Phone Care Team Providers Care Kitchen Lead Name Role Phone Tim Tucker MD Primary Care Provider [phone] Encounter Details Date Type Department Care Team (Late st Contact Info) Description 01/30/2024 Documentation Only [facility] [address] [place] [address] Jennifer Torres [address] [place] [phone] Social History Tobacco Use Types Packs/Day Years Used Date Smoking Tobacco: Never Assessed Comments Unknown Sex and Gender Information Value Date Recorded Sex Assigned at Not on file Legal Sex Female 1:30 PM EDT Gender Identity Not on file Sexual Orientation Not on file documented as of this encounter Plan of Treatment Upcoming Encounters Date Type Department Care Team (Late st Contact Info) Description 01/31/2025 3:30 PM EDT Office Visit [facility] [address] [place] [phone] Jonathan Esteves MD [address] [place] [address] [place] [address] documented as of this encounter Visit Diagnoses Not on filedocumented in this encounter Care Teams Kitchen Lead Relationship Specialty Start Date End Date Tim Tucker MD [facility] [address] [place] PCP - General Internal Medicine 12/16/23 documented as of this encounter
--- OUTSIDE RECORDS SUMMARY | 2025-01-05 11:48 | XMS_ITS | Encounter Summary ---
Author Organization [facility] Address [address] [place] [address] Phone Care Team Providers Care Waste Minimization Technician Name Role Phone Tim Tucker MD Primary Care Provider [phone] Encounter Details Date Type Department Care Team (Late st Contact Info) Description 01/30/2024 Documentation Only [facility] [address] [place] [address] Jennifer Torres [address] [place] [phone] Social History Tobacco Use Types Packs/Day Years [...] Visit [facility] [address] [place] [phone] Jonathan Esteves MD [address] [place] [address] [place] [address] documented as of this encounter Visit Diagnoses Not on filedocumented in this encounter Care Teams Waste Minimization Technician Relationship Specialty Start Date End Date Tim Tucker MD [facility] [address] [place] PCP - General Internal Medicine 12/16/23 documented as of this encounter
--- OUTSIDE RECORDS SUMMARY | 2025-01-05 11:48 | XMS_ITS | Clinical Summary ---
Author Organization [facility] Address [address] [place] [address] Phone Care Team Providers Care Atomic Spectroscopist Name Role Phone Tim uTcker MD Primary Care Provider [phone] Allergies Active Allergy Reactions Criticality Noted Date Comments Amoxicillin 01/30/2024 Atorvastatin 01/30/2024 Clarithromycin 01/30/2024 Doxycycline 01/30/2024 Erythromycin 01/30/2024 Latex 01/30/2024 Penicillins 01/30/2024 Omeprazole 01/30/2024 Simvastatin 01/30/2024 Sulfadiazine 01/30/2024 Medications docusate sodium (COLACE) 100 MG capsule TAKE 2 CAPSULE 2 X 100 MG) BY MOUTH DAILY NEEDED FOR CONSTIPATION . 01/21/2024 Active pregabalin (LYRICA) 75 MG capsule TAKE ONE CAPSULE BY MOUTH EVERY EVENING AT BEDTIME 11/10/2023 Active pravastatin (PRAVACHOL) 10 MG tablet Take 10 mg by mouth 1 (one) time each day 06/09/2024 Active Active Problems Problem Noted Date Diagnosed Date Stage 3b chronic kidney disease 01/30/2024 Social History Tobacco Use Types Packs/Day Years Used Date Smoking Tobacco: Never Assessed Comments Unknown Sex and Gender Information Value Date Recorded Sex Assigned at Not on file Legal Sex Female 1:30 PM EDT Gender Identity Not on file Sexual Orientation Not on file Plan of Treatment Upcoming Encounters Date Type Department Care Team ([facility] st Contact Info) Description 01/31/2025 3:30 PM EDT Office Visit [facility] [place] [address] [place] [address] Jonathan Esteves MD [address] [place] [phone] Health Maintenance Due Date Last Done Comments Pneumococcal Vaccine: 50+ Ye ars (1 of 2 - PCV) 1964 Influenza Vaccine (Season Ended) 2025 Hepatitis B Vaccine Aged Out No longe r eligible based on patient's age to complete this topic Insurance [facility] Care Teams Atomic Spectroscopist Relationship Specialty Start Date End Date Tim Tucker MD [facility] [address] [place], [place] PCP - General Internal Medicine 12/16/23
--- OUTSIDE RECORDS SUMMARY | 2025-01-05 11:48 | XMS_ITS | Encounter Summary ---
Author Organization [facility] Address [address] [place] [address] Phone Care Team Providers Care Well Cleaner Name Role Phone Tim Tucker MD Primary Care Provider [phone] Encounter Details Date Type Department Care Team (Late st Contact Info) Description 02/18/2024 Documentation Only [facility] [address] [place] [address] Jayleen Lomax [address] [place] [phone] Social History Tobacco Use Types Packs/Day Years [...] Visit [facility] [place] [address] [place] [phone] Jonathan Esteves MD [address] [place] [address] [place] [address] documented as of this encounter Visit Diagnoses Not on filedocumented in this encounter Care Teams Well Cleaner Relationship Specialty Start Date End Date Tim Tucker MD [facility] [place] [address] [place] PCP - General Internal Medicine 12/16/23 documented as of this encounter
--- OUTSIDE RECORDS SUMMARY | 2025-01-05 11:48 | XMS_ITS | Encounter Summary ---
Author Organization [facility] Address [address] [place] [address] Phone Care Team Providers Care Assembly Line Leader Name Role Phone Tim Tucker MD Primary Care Provider [phone] Encounter Details Date Type Department Care Team (Late st Contact Info) Description 02/10/2024 Documentation Only [facility] [address] [place] [address] Jennifer Torres [address] [place] [phone] Social History Tobacco Use Types Packs/Day Years [...] Visit [facility] [address] [place] [phone] Jonathan Esteves MD [address] [place] [address] [place] [address] documented as of this encounter Visit Diagnoses Not on filedocumented in this encounter Care Teams Assembly Line Leader Relationship Specialty Start Date End Date Tim Tucker MD [facility] [address] [place] PCP - General Internal Medicine 12/16/23 documented as of this encounter
--- OUTSIDE RECORDS SUMMARY | 2025-01-05 11:48 | XMS_ITS | Encounter Summary ---
Author Organization [facility] Address [address] [place] [address] Phone Care Team Providers Care Material Spreader Name Role Phone Tim Tucker MD Primary Care Provider [phone] Encounter Details Date Type Department Care Team (Late st Contact Info) Description 02/10/2024 Documentation Only [facility] [address] [place] [address] Jennifer Torres [address] [place] [phone] Social History Tobacco Use Types Packs/Day Years [...] Visit [facility] [address] [place] [phone] Jonathan Esteves MD [address] [place] [address] [place] [address] documented as of this encounter Visit Diagnoses Not on filedocumented in this encounter Care Teams Material Spreader Relationship Specialty Start Date End Date Tim Tucker MD [facility] [address] [place] PCP - General Internal Medicine 12/16/23 documented as of this encounter
--- OUTSIDE RECORDS SUMMARY | 2025-01-05 11:48 | XMS_ITS | Encounter Summary ---
Author Organization [facility] Address [address] [place] [address] Phone Care Team Providers Care Mind Reader Name Role Phone Tim Tucker MD Primary Care Provider Encounter Details Date Type Department Care Team (Late st Contact Info) Description 02/10/2024 Documentation Only [facility] [address] [place] [address] Jennifer Torres [address] [place] [phone] Social History Tobacco Use Types Packs/Day Years [...] [facility] [address] [place] [phone] Jonathan Esteves MD [address] [place] [address] [place]. [place] [address] documented as of this encounter Visit Diagnoses Not on filedocumented in this encounter Care Teams Mind Reader Relationship Specialty Start Date End Date Tim Tucker MD [facility] INTERNAL [address] [place] PCP - General Internal Medicine 12/16/23 documented as of this encounter
--- OUTSIDE RECORDS SUMMARY | 2025-01-05 11:48 | XMS_ITS | Encounter Summary ---
Author Organization [facility] Address [address] [place] [address] Phone Care Team Providers Care Refrigerator Room Clerk Name Role Phone Tim Tucker MD Primary Care Provider [phone] Encounter Details Date Type Department Care Team (Late st Contact Info) Description 02/10/2024 Documentation Only [facility] [address] [place] [address] Jennifer Torres [address] [place] [phone] Social History Tobacco Use Types Packs/Day Years [...] Visit [facility] [address] [place] [phone] Jonathan Esteves MD [address] [place] [address] [place] [address] documented as of this encounter Visit Diagnoses Not on filedocumented in this encounter Care Teams Refrigerator Room Clerk Relationship Specialty Start Date End Date Tim Tucker MD [facility] INTERNAL [address] [place] PCP - General Internal Medicine 12/16/23 documented as of this encounter
--- OUTSIDE RECORDS SUMMARY | 2025-01-05 11:48 | XMS_ITS | Encounter Summary ---
Author Organization [facility] Address [address] [place] [address] Phone Care Team Providers Care Loader Operator Name Role Phone Tim Tucker MD Primary Care Provider Encounter Details Date Type Department Care Team (Late st Contact Info) Description 01/30/2024 Documentation Only [facility] [address] [place] [address] Jennifer Torres [address] [place] [phone] Social History Tobacco Use Types Packs/Day Years [...] Visit [facility] [address] [place] [phone] Jonathan Esteves MD [address] [place] [address] [place] [address] documented as of this encounter Visit Diagnoses Not on filedocumented in this encounter Care Teams Loader Operator Relationship Specialty Start Date End Date Tim Tucker MD [facility] INTERNAL [address] [place] PCP - General Internal Medicine 12/16/23 documented as of this encounter
--- OUTSIDE RECORDS SUMMARY | 2025-01-05 11:49 | XMS_ITS | Patient Health Record ---
Author Organization [facility] Address [address] [place] [address] Care Team Providers Care Aquatics Coordinator Name Role Phone Tim Tucker Primary Care Provider Mario Villatoro Unavailable [phone] Allergies Allergen (clinical drug ingredient) Drug/Non Drug Allergy documented on EMR Reaction Allergy Type Onset Date Status Azithromycin rash,itchy Drug Allergy Act tavares sulfamethoxazole / trimethoprim Bactrim Unknown Drug Allergy Active Biaxin rash,itchy Drug Allergy Active shrimp allergenic extract Shrimp (Diagnostic) vomiting Drug Allergy Active atorvastatin Atorvastatin Unknown Drug Allergy A ctive clarithromycin Clarithromycin Unknown Drug Allergy Active doxycycline Doxycycline vision disturbances Drug Allergy Active erythromycin Erythromycin rash,itchy Drug Allergy Active Influenza Vaccine Live Unknown Drug Allergy Active moxifloxacin Moxifloxacin Unknown Drug Allergy A ctive omeprazole Omeprazole Unknown Drug Allergy Activ e Penicillin Unknown Drug Allergy Active Shellfish (FN) Shellfish-derived Products vomiting Drug Allergy Active simvastatin Simvastatin Unknown Drug Allergy Act tavares Reason For Referral No Information Medications Medication SIG (Take, Route, Frequency, Duration) Notes Start Date End Date Status Magnesium Aspartate 65 MG as directed Orally Unknown metroNIDAZOLE 500 MG 1 [address] Thr ee times a day for 10 day(s) Unknown Pravastatin Sodium 10 MG 1 tablet Orally Once a day for 30 day(s) Active Co Q 10 Active Xanax Active Magnesium Citrate Ac tive Coenzyme Q10 200 MG as directed Orally Unknown Lactobacillus - as directed Orally Unknown ALPRAZolam 0.25 MG 1 tablet Orally Twic e a day Unknown Physical Therapy . . . 2-3x/week for 3- 4 weeks 05/28/2022 Active Vitamin D3 25 MCG (1000 UT) 1 capsule Or ally Once a day for 30 day(s) Unknown Social History Tobacco Use: Social History Observation Description Date Details (start date - stop date) Former Smoker NA - NA Tobacco Use/Smoking Question Answer Notes Are you a: former smoker Additional Findings: Tobacco Non-User Current no n-smoker Alcohol Screen Question Answer Notes Did you have a drink contain ing alcohol in the past year? Yes How often did you have a dri nk containing alcohol in the past year? 2 to 4 times a month (2 points) Points 2 Interpretation Negative Tobacco use other than smoking: Question Answer Notes Are you an other tobacco user? No Problems Problem Type SNOMED Code ICD Code Onset Dates Problem Status W/U Status Risk Notes Problem Plantar fascial fibromatosis (14618782) Plantar fascial fibromatosis (M72.2) Active confirmed Plan Of Treatment Pending Test Test Name Order Date X ray : Foot, right 3V 05/28/2022 Insurance Providers Payer Name Payer Address Payer Phone Subscriber Number Group Number Insured Name Patient Relationship to Insured Coverage Start Date Coverage End Date [employer] [place] [employer]age [facility] [address] [place] [address] [phone] [id number] Kristy Dent Self - patient is the insured Medical (General) History Medical History History ICD Code Anxiety Diverticulosis Hypercholesterolemia osteoarthritis Herniated disc Arthritis Cholesterol Measles Mumps Chicken pox Melanoma Bone implants/screws Transfusions Surgical History Surgery Date(Month/Year) right hip replacement colectomy melanoma excision breast implants bowel resection Hospitalization History Reason Date(Month/Year) [facility] [place] 8 [place] 12/2021
--- OUTSIDE RECORDS SUMMARY | 2025-01-05 11:49 | XMS_ITS | Patient Health Record ---
Author Organization [facility] Address [address] [place] [address] Care Team Providers Care Card Assembler Name Role Phone Pavithra Briones Unavailable [phone] Reason For Referral No Information Medications Medication SIG (Take, Route, Fr equency, Duration) Notes Start Date End Date Status Simvastatin 20MG 1 ORAL daily for -3 Alcon-MJ 07/10/2012 Active Pepcid AC 10MG 4 ORAL at bedtime for -3 [facility]- 07/10/2012 Active ALPRAZolam 0.25MG 1 ORAL three times daily for 10 Alcon-MJ 07/10/2012 Active Problems Problem Type SNOMED Code ICD Code Onset Dates Problem Status W/U Status Risk Notes Problem 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 Major Problem Hyperlipidemia (29498155) Other and unspecified hyperlipidemia (272.4) Active confirmed Major Problem Anxiety state (855651112) Anxiety state, unspecified (300.00) Active confirmed Major Problem Esophageal reflux (046897922) Esophageal reflux (530.81) Active confirmed Major Problem Diverticulosis of colon (finding) (497127830) Diverticulosis of colon (without mention of hemorrhage) (562.10) Active confirmed Other Problem Menopausal symptom (22437157) Symptomatic menopausal or female climacteric states (627.2) Active confirmed Major Problem Gynecological examination normal (089848385553641) Routine gynecological examination (V72.31) Active confirmed Major Problem Screening for malignant neoplasm of colon (345772203) Special screening for malignant neoplasms, colon (V76.51) Active confirmed Major Plan Of Treatment No Information Insurance Providers Payer Name Payer Address Payer Phone Subscriber Number Group Number Insured Name Patient Relationship to Insured Coverage Start Date Coverage End Date [employer]AGE [facility] [address] [facility] [place] [id number] OPAL ALCALA Self - patient is the insured
--- OUTSIDE RECORDS SUMMARY | 2025-01-05 11:49 | XMS_ITS | Encounter Summary ---
Author Organization [facility] Address [address] [place] [address] Phone Care Team Providers Care Assistant Clinical Nurse Manager Name Role Phone Tim Tucker MD Primary Care Provider [phone] Encounter Details Date Type Department Care Team (Late st Contact Info) Description 01/30/2024 Documentation Only [facility] [address] [place] [address] Jennifer Torres [address] [place] [phone] Social History Tobacco Use Types Packs/Day Years [...] Visit [facility] [address] [place] [phone] Jonathan Esteves MD [address] [place] [address] [place] [address] documented as of this encounter Visit Diagnoses Not on filedocumented in this encounter Care Teams Assistant Clinical Nurse Manager Relationship Specialty Start Date End Date Tim Tucker MD [facility] INTERNAL [address] [place] PCP - General Internal Medicine 12/16/23 documented as of this encounter
== END 2025-01-05 10:13 | disposition home or self-care (01) ==
LOC: HO.LAB 10:12
PROVIDERS: PCP Internal Medicine; Referring Provider Internal Medicine Nephrology; Visit Provider Internal Medicine
DX: E78.00 Pure hypercholesterolemia, unspecified (principal); R73.02 Impaired glucose tolerance (oral)
CPT/HCPCS: 36415; 80053; 80061; 82306; 82607; 82746; 83036; 84439; 84443; 85025

== ENCOUNTER 2025-01-14 12:46 | Outpatient (AMB) | payer MEDICARE, SELFPAY ==
[2025-01-14 12:51] VITALS: BP 134/68; PULSE 73; O2SAT 97; BMI 21.5
--- NOTE | 2025-01-14 12:51 | A.OFFPC_ITS ---
Vital Signs 01/14/25 12:51 Height 5 ft 7 in Weight 137 lb BMI 21.5 BP 134/68 Blood Pressure Location Lt brachial Position Sitting Pulse 73 Pulse Source Pulse Oximeter Pulse Oximetry (%) 97 Oxygen Delivery Method Room Air Intake Visit Reasons: 6 month f/u - see comments Allergies atorvastatin [Lipitor] Allergy (Unknown, Verified 01/14/25 12:51) Unknown clarithromycin [From Biaxin] Allergy (Unknown, Verified 01/14/25 12:51) Unknown doxycycline Allergy (Unknown, Verified 01/14/25 12:51) rash, vision changes erythromycin base Allergy (Unknown, Verified 01/14/25 12:51) Unknown influenza virus vaccine tvs [id number](65 years up) [From Fluzone High-Dose 2017- (PF)] Allergy (Unknown, Verified 01/14/25 12:51) vomitting moxifloxacin [Avelox] Allergy (Unknown, Verified 01/14/25 12:51) Unknown omeprazole [Prilosec] Allergy (Unknown, Verified 01/14/25 12:51) Unknown scalp rx simvastatin Allergy (Unknown, Verified 01/14/25 12:51) Unknown Sulfa (Sulfonamide Antibiotics) Allergy (Unknown, Verified 01/14/25 12:51) SWELLING flu shot Adverse Reaction (Intermediate, Uncoded 01/14/25 12:51) coughing Medication List - Last Reconciled 01/14/25 by Tim Tucker MD alprazolam (Xanax) 0.25 mg PO DAILY PRN 90 days cholecalciferol (vitamin D3) 25 mcg PO DAILY coenzyme Q10 (Co Q-10) 200 mg PO DAILY docusate sodium (Stool Softener) 200 mg (2 x 100 mg) PO DAILY PRN magnesium 200 mg PO DAILY magnesium glycinate 100 mg PO DAILY pravastatin 10 mg PO DAILY pregabalin 75 mg PO BEDTIME Tobacco use date assessed: 01/14/25 Fall risk assessment: No Falls in past year Last assessed Fall Risk: 01/14/25 Dental Screening Dental Screen Date: 01/14/25 Did you have a dental visit in the last 12 months?: No Did you have a dental problem in the last 6 months where you did not have access to dental care?: No Was dental information given to patient?: Patient has dentist [facility] Medical History (Updated 01/14/25 @ 13:16 by Tim Tucker MD) Constipation Breast cancer screening by mammogram Elevated blood pressure reading Osteoarthritis of right hip Anxiety Hypercholesterolemia Lumbar disc herniation Diverticulosis Surgical History Melanoma History of right hip replacement History of colectomy Hx of breast implants, bilateral Family History Father CVD (cardiovascular disease) Mother CVD (cardiovascular disease) Diabetes Social History (Updated 07/13/24 @ 11:49 by Tim Tucker MD) Housing: House Alcohol intake: current Alcohol intake frequency: does not drink Alcohol type: wine Comment: once Q 2 months 1 drink Patient Tobacco Use Status: Former Tobacco user Tobacco use type: Cigarette Years Smoked: teenager e-Cigarette/Vaping Use: Never Used Second Hand Smoke Exposure: No service: No Current occupational status: retired Cognitive needs: No Hearing needs: No Vision needs: Yes Questionnaire PHQ-9 Over the last 2 weeks, how often have you been bothered by any of the following problems? 1. Little interest or pleasure in doing things: not at all 2. Feeling down, depressed, or hopeless: not at all 3. Trouble falling or staying asleep, or sleeping too much: not at all 4. Feeling tired or having little energy: several days 5. Poor appetite or overeating: not at all 6. Feeling bad about yourself - or that you are a failure or have let yourself or your family down: not at all 7. Trouble concentrating on things, such as reading the newspaper or watching television: not at all 8. Moving or speaking so slowly that other people could have noticed. Or the opposite - being so fidgety or restless that you have been moving around a lot more than usual: not at all 9. Thoughts that you would be better off or of hurting yourself in some way: not at all Total score: 1 Depression Screening Interpretation: Positive Depression Screening Done: Yes 75257 - PHQ-9 Billing: Yes Source: Developed by Drs. Meliton Lind, Barbara George, Leander Ibrahim and colleagues, with an educational prudencio from [employer]. Thrive Questionnaire Date Thrive assessed: 01/14/25 I am a: Patient What is your living situation today?: I have a steady place to live Within the past 12 months, did the food you bought not last and you didn't have the money to get more?: Never true Within the past 12 months, did you worry whether your food would run out before you got money to buy more?: Never true Do you have trouble paying for medicines?: No Do you have trouble getting transportation to medical appointments?: No Do you have trouble paying your heating and electricity bill?: No Do you have trouble taking care of your child, family member or friend?: No Do you have trouble with day-to-day activities such as bathing, preparing meals, shopping, managing finances, etc.?: No Are you currently unemployed and looking for a job?: No Are you interested in more education?: No Please select the resources that you would like help with: None Currently or been in a relationship where the following occur: No concerns reported THRIVE Score: 0 AUDIT C Alcohol Use Questionnaire (AUDIT-C) 1. How often do you have a drink containing alcohol?: Monthly or less Total Score: 1 TEGAN-7 AMB Questionnaire TEGAN-7 Date TEGAN - 7 assessed: 01/14/25 Feeling nervous, anxious, or on edge: 1 = Several days Not being able to stop or control worryin = Several days Worrying too much about different things: 1 = Several days Trouble relaxin = Several days Being so restless that it is hard to sit still: 0 = Not at all Becoming easily annoyed or irritable: 0 = Not at all Feeling afraid as if something awful might happen: 1 = Several days Total TEGAN-7 score (0-4 normal; 5-9 mild; 10-14 moderate; 15-21 severe): 5 Source: Developed by Drs. Meliton Lind, Barbara George, Leander Ibrahim and colleagues, with an educational prudencio from [employer]. TEGAN-7 Assessment Billing TEGAN-7 Assessment Tool: TEGAN-7 Assessment 88304 Physical exam (Primary Care) Vital Signs: Last Vital Signs Pulse 73 01/14/25 12:51 BP 134/68 01/14/25 12:51 Pulse Ox 97 01/14/25 12:51 Oxygen Delivery Method Room Air 01/14/25 12:51 BMI result Body Mass Index 21.5 Tobacco/Smoking Status: Tobacco use Status Tobacco use date assessed 01/14/25 01/14/25 12:52 Patient Tobacco Use Status Former Tobacco user 01/14/25 12:52 Tobacco use type Cigarette 01/14/25 12:52 e-Cigarette/Vaping Use Never Used 01/14/25 12:52 PHQ-9: PHQ-9 Score PHQ-9: Total score 1 01/14/25 13:05 Depression Screening Interpretation: Positive Thrive Assessment: Date of Thrive Assessment Date Thrive assessed 01/14/25 01/14/25 12:52 Currently or been in a relationship where the following occur: No concerns reported Const General: alert; No acute distress Eyes Conjunctivae: conjunctivae normal Resp Auscultation: clear to auscultation bilaterally Cardio Rate: regular rate Rhythm: regular rhythm GI Inspection: Yes normal to inspection Extrem General: Yes normal to inspection and No edema Coding Level of Care Code Est Pt Level 4 (88198) Diagnoses Impaired glucose tolerance R73.02 Hypercholesterolemia E78.00 Chronic kidney disease, stage 3b N18.32 Generalized anxiety disorder F41.1 Tubular adenoma of colon D12.6 Additional Codes TEGAN-7 Assessment Billing - TEGAN-7 Assessment Tool: TEGAN-7 Assessment 15478 ([id number]) PHQ-9 - 80449 - PHQ-9 Billing: Yes ([id number]) Assessment & Plan Assessment & Plan (1) Impaired glucose tolerance: Code(s): R73.02 - Impaired glucose tolerance (oral) Category: Medical Plan: Decrease the amount of carbohydrate intake, pasta, bread, rice and potatoes are all sugar and that is aside from all the sweet stuff, remember that fruits are good but they are Sweet also. (2) Hypercholesterolemia: Code(s): E78.00 - Pure hypercholesterolemia, unspecified Category: Medical Plan: Avoid fried foods, chicken skin, eggs, butter margarine, pastries and meat. Be it pork or beef they have a lot of cholesterol patient on pravastatin 10 mg once a day (3) Chronic kidney disease, stage 3b: Code(s): N18.32 - Chronic kidney disease, stage 3b Category: Medical Plan: Keep well hydrated, avoid NSAIDs (4) Generalized anxiety disorder: Comment: Decline any referral for counseling Code(s): F41.1 - Generalized anxiety disorder Category: Medical Plan: Continue with present medication as needed (5) Tubular adenoma of colon: Comment: 2020 Code(s): D12.6 - Benign neoplasm of colon, unspecified Category: Medical Plan History of Present Illness The patient is an 79-year-old female presenting for a follow-up about her chronic medical issues. She has a history of hypercholesterolemia and is currently on pravastatin 10 mg daily, with her LDL cholesterol well-managed at 123. She has impaired glucose tolerance, with a recent blood glucose level of 108 and hemoglobin A1c increased to 5.9%. The patient faces challenges in managing glucose levels due to dietary habits and reduced physical activity from plantar fasciitis, limiting her ability to exercise. The patient?s chronic kidney disease, Stage 3B, remains stable as per recent evaluations. Renal function is stable with a serum creatinine of 1.2, and she is advised to focus on hydration and avoidance of NSAIDs. Follow-up from nephrology was last conducted in July 2024. Health Maintenance - Colonoscopy last performed: February 2021; tubular adenoma found, advised on potential follow-up given patient's age. - Bone density scan completed: December 2022, results normal. - Mammogram is up to date, with follow-up due this month, June 2024. - Blood tests from January 05: Normal counts noted alongside mild thrombocytopenia and recent mild leukopenia. - Current medications include pravastatin, alprazolam, pregabalin, vitamin D, magnesium supplements, and CoQ10. Use of stool softeners reported effective. Social History - Reports limited ability to exercise due to plantar fasciitis but was previously walking a mile a day. - Discussed dietary habits, including a preference for carbohydrates like pasta, noting its impact on glucose levels. - Engages in outdoor activities for exposure to sunlight but infrequent vitamin D supplementation due to cramps. Review of Systems - Constitutional: Denies fever, reports decreased energy. - Eyes: No issues reported. - Cardiovascular: Denies palpitations or chest pain. - Gastrointestinal: Denies blood in stools; effective use of stool softeners. - Musculoskeletal: Reports plantar fasciitis causing activity limitation. - Neurological: No acute neurological symptoms. - Endocrine: Reports impaired glucose tolerance. - Hematologic: Reports stable thrombocytopenia and new mild leukopenia. - Psychiatric: History of general anxiety disorder, uses alprazolam as needed. Physical Exam Results - Labs: Blood glucose 108, Hemoglobin A1c 5.9%, LDL cholesterol 123, serum creatinine 1.2, platelet count low but stable, recent leukopenia. - Past procedures: Colonoscopy (February 2021 - tubular adenoma), bone density (December 2022 - normal), mammogram up-to-date. Plan 1. Monitor blood glucose levels and further action may be taken if levels trend upwards. Emphasize dietary changes and increased physical activity once plantar fasciitis is managed. Stable renal function requires ongoing hydration and avoidance of NSAIDs to preserve function. Mild leukopenia will be re-evaluated in future testing, as no immediate intervention is needed. A referral to a machine repairer maintenance is advised for plantar fasciitis management. Evaluate future colonoscopy necessity based on overall health and procedure risks in elderly patients.: Patient was informed and verbally consented to the use of an ambient scribe for clinic note documentation during this visit. Discussion Notes We discussed the current management plan for hypercholesterolemia, impaired glucose tolerance, and chronic kidney disease. I advised maintaining current pravastatin therapy, dietary changes, and monitoring renal function. The importance of lifestyle modifications for glucose management was highlighted. The potential need for a colonoscopy was addressed given her previous findings and age-related considerations. We agreed on the management of mild leukopenia with follow-up testing, noted no critical need for intervention. For plantar fasciitis, I recommended a podiatry consult. I addressed questions about medication safety concerning renal function and outlined lifestyle recommendations. Patient Instructions - Continue pravastatin 10 mg daily for cholesterol management. - Monitor blood glucose levels regularly and adjust diet according to recommendations. - Maintain hydration and avoid NSAIDs to protect kidney function. - Schedule an appointment with a machine repairer maintenance for management of plantar fasciitis. - Monitor any changes in energy levels and report any concerning symptoms. - Follow up with me in six months for reevaluation of current health conditions. - Contact my office promptly if any new symptoms or concerns arise. - Adhere to recommended lifestyle modifications and keep active as able. Orders: Orders Complete Blood Count Auto Diff 6 Months R73.02 - Impaired glucose tolerance (oral) Hemoglobin A1c 6 Months R73.02 - Impaired glucose tolerance (oral) Free T4 (Free Thyroxine) 6 Months R73.02 - Impaired glucose tolerance (oral) Magnesium 6 Months R73.02 - Impaired glucose tolerance (oral) Vitamin B12 and Folate 6 Months R73.02 - Impaired glucose tolerance (oral) Comprehensive Met. Panel 6 Months R73.02 - Impaired glucose tolerance (oral) Lipid Panel 6 Months E78.00 - Pure hypercholesterolemia, unspecified, R73.02 - Impaired glucose tolerance (oral) Thyroid Stimulating Hormone 6 Months R73.02 - Impaired glucose tolerance (oral) Vitamin D 25-OH Total 6 Months R73.02 - Impaired glucose tolerance (oral) UA CC w/rflx Micro + Cult 6 Months R30.0 - Dysuria, R73.02 - Impaired glucose tolerance (oral)
--- OUTSIDE RECORDS SUMMARY | 2025-01-14 13:27 | XMS_ITS | Clinical Summary ---
Author Organization [facility] Address [address] [place] [address] Phone Care Team Providers Care Counselor/Art Therapist Name Role Phone Tim Tucker MD Primary Care Provider [phone] Allergies Active Allergy Reactions Criticality Noted Date [...] Upcoming Encounters Date Type Department Care Team ([facility] st Contact Info) Description 01/31/2025 3:30 PM EDT Office Visit [facility] [place] [address] [place] [address] Jonathan Esteves MD [address] [place] [address] [place] [phone] Health Maintenance Due Date Last Done Comments Pneumococcal Vaccine: 50+ Ye ars (1 of 2 - PCV) 1964 Influenza Vaccine (Season Ended) 2025 Hepatitis B Vaccine Aged Out No longe r eligible based on patient's age to complete this topic Insurance [facility] Care Teams Counselor/Art Therapist Relationship Specialty Start Date End Date Tim Tucker MD [facility] INTERNAL [address] [place], [place] PCP - General Internal Medicine 12/16/23
--- OUTSIDE RECORDS SUMMARY | 2025-01-14 13:27 | XMS_ITS | Encounter Summary ---
Author Organization [facility] Address [address] [place] [address] Phone Care Team Providers Care Director Of Workforce Development Name Role Phone Tim Tucker MD Primary Care Provider [phone] Encounter Details Date Type Department Care Team (Late st Contact Info) Description 01/30/2024 Documentation Only [facility] [address] [place] [address] Jennifer Torres [address] [place] [phone] Social History Tobacco Use Types Packs/Day Years [...] [facility] [address] [place] [phone] Jonathan Esteves MD [address] [place] [address] [place] [address] documented as of this encounter Visit Diagnoses Not on filedocumented in this encounter Care Teams Director Of Workforce Development Relationship Specialty Start Date End Date Tim Tucker MD [facility] INTERNAL [address] [place] PCP - General Internal Medicine 12/16/23 documented as of this encounter
--- OUTSIDE RECORDS SUMMARY | 2025-01-14 13:27 | XMS_ITS | Encounter Summary ---
Author Organization [facility] Address [address] [place] [address] Phone Care Team Providers Care Dominatrix Name Role Phone Tim Tucker MD Primary Care Provider Encounter Details Date Type Department Care Team (Late st Contact Info) Description 01/30/2024 Documentation Only [facility] [address] [place] [address] Jennifer Torres [address] [place] [phone] Social History Tobacco Use Types Packs/Day Years [...] Visit [facility] [address] [place] [phone] Jonathan Esteves MD [address] [place] [address] [place] [address] documented as of this encounter Visit Diagnoses Not on filedocumented in this encounter Care Teams Dominatrix Relationship Specialty Start Date End Date Tim Tucker MD [facility] INTERNAL [address] [place] PCP - General Internal Medicine 12/16/23 documented as of this encounter
--- OUTSIDE RECORDS SUMMARY | 2025-01-14 13:27 | XMS_ITS | Encounter Summary ---
Author Organization [facility] Address [address] [place] [address] Phone Care Team Providers Care Methods Specialist Engineer Name Role Phone Tim Tucker MD Primary Care Provider [phone] Encounter Details Date Type Department Care Team (Late st Contact Info) Description 02/18/2024 Documentation Only [facility] [address] [place] [address] Jayleen Lomax [address] [place] [phone] Social History Tobacco Use Types Packs/Day Years [...] Visit [facility] [place] [address] [place] [phone] Jonathan Esteves MD [address] [place] [address] [place] [address] documented as of this encounter Visit Diagnoses Not on filedocumented in this encounter Care Teams Methods Specialist Engineer Relationship Specialty Start Date End Date Tim Tucker MD [facility] INTER[facility] [place] [address] [place] PCP - General Internal Medicine 12/16/23 documented as of this encounter
--- OUTSIDE RECORDS SUMMARY | 2025-01-14 13:27 | XMS_ITS | Encounter Summary ---
Author Organization [facility] Address [address] [place] [address] Phone Care Team Providers Care Underwater Hunter Trapper Name Role Phone Tim Tucker MD Primary Care Provider [phone] Encounter Details Date Type Department Care Team (Late st Contact Info) Description 02/10/2024 Documentation Only [facility] [address] [place] [address] Jennifer Torres [address] [place] [phone] Social History Tobacco Use Types Packs/Day Years [...] Visit [facility] [address] [place] [phone] Jonathan Esteves MD [address] [place] [address] [place] [address] documented as of this encounter Visit Diagnoses Not on filedocumented in this encounter Care Teams Underwater Hunter Trapper Relationship Specialty Start Date End Date Tim Tucker MD [facility] INTERNAL [address] [place] PCP - General Internal Medicine 12/16/23 documented as of this encounter
--- OUTSIDE RECORDS SUMMARY | 2025-01-14 13:27 | XMS_ITS | Encounter Summary ---
Author Organization [facility] Address [address] [place] [address] Phone Care Team Providers Care Intercell Connector Placer Name Role Phone Tim Tucker MD Primary Care Provider [phone] Encounter Details Date Type Department Care Team (Late st Contact Info) Description 02/10/2024 Documentation Only [facility] [address] [place] [address] Jennifer Torres [address] [place] [phone] Social History Tobacco Use Types Packs/Day Years [...] Visit [facility] [address] [place] [phone] Jonathan Esteves MD [address] [place] [address] [place] [address] documented as of this encounter Visit Diagnoses Not on filedocumented in this encounter Care Teams Intercell Connector Placer Relationship Specialty Start Date End Date Tim Tucker MD [facility] INTERNAL [address] [place] PCP - General Internal Medicine 12/16/23 documented as of this encounter
--- OUTSIDE RECORDS SUMMARY | 2025-01-14 13:27 | XMS_ITS | Encounter Summary ---
Author Organization [facility] Address [address] [place] [address] Phone Care Team Providers Care Dogman/Woman Name Role Phone Tim Tucker MD Primary Care Provider [phone] Encounter Details Date Type Department Care Team (Late st Contact Info) Description 02/10/2024 Documentation Only [facility] [address] [place] [address] Jennifer Torres [address] [place] [phone] Social History Tobacco Use Types Packs/Day Years [...] [facility] [address] [place] [phone] Jonathan Esteves MD [address] [place] [address] [place] [address] documented as of this encounter Visit Diagnoses Not on filedocumented in this encounter Care Teams Dogman/Woman Relationship Specialty Start Date End Date Tim Tucker MD [facility] INTERNAL [address] [place] PCP - General Internal Medicine 12/16/23 documented as of this encounter
--- OUTSIDE RECORDS SUMMARY | 2025-01-14 13:27 | XMS_ITS | Encounter Summary ---
Author Organization [facility] Address [address] [place] [address] Phone Care Team Providers Care Television News Reporter Name Role Phone Tim Tucker MD Primary Care Provider [phone] Encounter Details Date Type Department Care Team (Late st Contact Info) Description 02/10/2024 Documentation Only [facility] [address] [place] [address] Jennifer Torres [address] [place] [phone] Social History Tobacco Use Types Packs/Day Years [...] Visit [facility] [address] [place] [phone] Jonathan Esteves MD [address] [place] [address] [place] [address] documented as of this encounter Visit Diagnoses Not on filedocumented in this encounter Care Teams Television News Reporter Relationship Specialty Start Date End Date Tim Tucker MD [facility] INTERNAL [address] [place] PCP - General Internal Medicine 12/16/23 documented as of this encounter
--- OUTSIDE RECORDS SUMMARY | 2025-01-14 13:27 | XMS_ITS | Encounter Summary ---
Author Organization [facility] Address [address] [place] [address] Phone Care Team Providers Care Contracts Specialist Name Role Phone Tim Tucker MD Primary Care Provider [phone] Encounter Details Date Type Department Care Team (Late st Contact Info) Description 01/30/2024 Documentation Only [facility] [address] [place] [address] Jennfier Torres [address] [place] [address] Social History Tobacco Use Types Packs/Day Years [...] Visit [facility] [address] Cristhian [address] [place] [address] Jonathan Esteves MD [address] [place] [address] [place] [address] documented as of this encounter Visit Diagnoses Not on filedocumented in this encounter Care Teams Contracts Specialist Relationship Specialty Start Date End Date Tim Tucker MD [facility] INTERNAL [address] [place] PCP - General Internal Medicine 12/16/23 documented as of this encounter
--- OUTSIDE RECORDS SUMMARY | 2025-01-14 13:28 | XMS_ITS | Patient Health Record ---
Author [facility] Address [address] [facility] 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 Plan Of Treatment Pending Test Test Name Order Date X ray : Foot, right 3V 05/28/2022 Insurance Providers Payer Name Payer Address Payer Phone Subscriber Number Group Number Insured Name Patient Relationship to Insured Coverage Start Date Coverage End Date [employer] [place] Medicare Advantage [facility] [address] [place] [address] [id number] Kristy Dent Self - patient is the insured Medical (General) History Medical History History ICD Code Anxiety Diverticulosis Hypercholesterolemia osteoarthritis Herniated disc Arthritis Cholesterol Measles Mumps Chicken pox Melanoma Bone implants/screws Transfusions Surgical History Surgery Date(Month/Year) right hip replacement colectomy melanoma excision breast implants bowel resection Hospitalization History Reason Date(Month/Year) [facility]vert[facility]- 8 hrs 12/2021
--- OUTSIDE RECORDS SUMMARY | 2025-01-14 13:28 | XMS_ITS | Patient Health Record ---
Author Organization [facility] Address [address] [place] [address] Care Team Providers Care Nutritional Services Cook Name Role Phone Pavithra Briones Unavailable [phone] Reason For Referral No Information Medications Medication SIG (Take, Route, Fr equency, Duration) Notes Start Date End Date Status Simvastatin 20MG 1 ORAL daily for -3 Alcon-MJ 07/10/2012 Active Pepcid AC 10MG 4 ORAL at bedtime for -3 [facility]- 07/10/2012 Active ALPRAZolam 0.25MG 1 ORAL three times daily for 10 Alcon-MJ 07/10/2012 Active Problems Problem Type SNOMED Code ICD Code Onset Dates Problem Status W/U Status Risk Notes Problem 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 Major Problem Hyperlipidemia (82948973) Other and unspecified hyperlipidemia (272.4) Active confirmed Major Problem Anxiety state (503516117) Anxiety state, unspecified (300.00) Active confirmed Major Problem Esophageal reflux (978727506) Esophageal reflux (530.81) Active confirmed Major Problem Diverticulosis of colon (finding) (295473476) Diverticulosis of colon (without mention of hemorrhage) (562.10) Active confirmed Other Problem Menopausal symptom (31641425) Symptomatic menopausal or female climacteric states (627.2) Active confirmed Major Problem Gynecological examination normal (621730323111977) Routine gynecological examination (V72.31) Active confirmed Major Problem Screening for malignant neoplasm of colon (057847538) Special screening for malignant neoplasms, colon (V76.51) Active confirmed Major Plan Of Treatment No Information Insurance Providers Payer Name Payer Address Payer Phone Subscriber Number Group Number Insured Name Patient Relationship to Insured Coverage Start Date Coverage End Date [place] MEDICARE ADVANTAGE [facility] [address] [facility] [place] [id number] OPAL ALCALA Self - patient is the insured
--- OUTSIDE RECORDS SUMMARY | 2025-01-14 13:28 | XMS_ITS | Encounter Summary ---
Author Organization [facility] Address [address] [place] [address] Phone Care Team Providers Care Hide Selector Name Role Phone Tim Tucker MD Primary Care Provider [phone] Encounter Details Date Type Department Care Team (Late st Contact Info) Description 01/30/2024 Documentation Only [facility] [address] [place] [address] Jennifer Torres [address] [place] [phone] Social History Tobacco Use Types Packs/Day Years [...] Visit [facility] [address] Cristhian [address] [place] [address] Jonathan Esteves MD [address] [place] [address] [place] [address] documented as of this encounter Visit Diagnoses Not on filedocumented in this encounter Care Teams Hide Selector Relationship Specialty Start Date End Date Tim Tucker MD [facility] INTERNAL [address] [place]OK[place] PCP - General Internal Medicine 12/16/23 documented as of this encounter
== END 2025-01-14 13:22 | disposition home or self-care (01) ==
LOC: HO.HMCH 12:47
PROVIDERS: PCP Internal Medicine; Visit Provider Internal Medicine
DX: R73.02 Impaired glucose tolerance (oral) (principal); E78.00 Pure hypercholesterolemia, unspecified; N18.32 Chronic kidney disease, stage 3b; F41.1 Generalized anxiety disorder; D12.6 Benign neoplasm of colon, unspecified

== ENCOUNTER → 2025-01-14 12:46 | Outpatient (BNVA) | payer MEDICARE, SELFPAY | PROVIDERS: PCP Internal Medicine; Visit Provider Internal Medicine | DX: R73.02 Impaired glucose tolerance (oral) (principal); E78.00 Pure hypercholesterolemia, unspecified; N18.32 Chronic kidney disease, stage 3b; F41.1 Generalized anxiety disorder; Z79.899 Other long term (current) drug therapy; Z86.0101 Personal history of adenomatous and serrated colon polyps | CPT/HCPCS: 96127; 99212 ==

== ENCOUNTER 2025-03-09 11:00 | Outpatient (RCR) | payer MEDICARE, SELFPAY ==
--- NOTE | 2025-01-19 12:54 | MHC.PT.EP ---
[facility] [place] Office [place] Office [address] Jyoti Arriaga [address] [phone] F: [phone] F: [phone] F: [phone] F: [phone] Physical Therapy Plan of Care Date of Evaluation: 01/19/25 Date of Surgery: Diagnosis: LEFT FOOT PAIN Assessment: 79 YO FEMALE REF TO PT FOR Lt FOOT PAIN, PROGRESSIVE SINCE SEP 2024. OF NOTE, SHE PREVIOUSLY HAD A H/O Rt PLANTAR FASCIITIS AND Rt ALLYSON W LLI (ADDRESSED W A Lt HEEL LIFT). THE Pt HAS A (+) BUNION Lt GREAT TOE ADDUCTED-> SHE USES A Lt GREAT TOE/ 2ND TOE -TOE SEPARATOR- SHE PRESENTED W A VERY GUARDED/ ANTALGIC GAIT W DECR STANCE TIME Lt FOOT AND ALTERED GAIT W/O HEEL STRIKE TO TOE OFF MECHANICS, (+) TIGHTNESS Lt PLANTAR TISSUES AND (+) PES CAVUS. THERE IS (+) STRENGTH DEFICIT IN PROX LEs . THE Pt IS LIMITED W FUNCTIONAL MOB REQ Wt BEARING-> STANDING, WALKING, STAIRS, ETC.. SHE IS IN AGREEMENT W PT POC AND WE WILL PROCEED ACCORDINGLY. Frequency and Duration: The patient will be seen 1 x WK x 5 WKS (DUE TO Pt'S CO-PAY) Short Term Goals: DECR Lt FOOT PAIN TO 2-3/10 INITIATE HEP IMPROVE Lt LE FLEXIB ADDRESS LUMBOPELVIC/ PROX LEs STRENGTH AND SYMMETRY Correction Goals: INDEP HEP AND SELF SX MGMT TECHN Pt DISPLAY A MORE EFFICIENT GAIT PATTERN, WFL PROX STRENGTH/ GLUTE STAB Pt RESUME REG ADLs AND FITNESS WALKING W/O LIMITATION FROM Lt DISTAL LE SXS IMPROVED LEFI SCORE, AT EVAL 32/80 Treatment Plan: Modalities to reduce pain, spasms and effusion. Manual therapy to restore motion and function. Therapeutic exercise to improve strength and flexibility. Neuromuscular re-education for posture and balance. Therapeutic activities to return to functional activities of daily living. Electronically signed by: SU MUNOZ,PT Please sign and return to therapist. Thank you for your referral.
--- NOTE | 2025-03-09 12:18 | MHC.PT.DC ---
[facility] [place] Office [place] Office [place] Office [address] Jyoti Arriaga [address] [phone] F: [phone] F: [phone] F: [phone] F: [phone] Physical Therapy Discharge Report Diagnosis: LEFT FOOT PAIN Date of Surgery: Date of Evaluation: 01/19/25 Date of Discharge: 03/09/25 Treatments to Date: 7 Cancellations to Date: 1 No Shows to Date: Discharge Status: Achieved Goals Improved Function Independent with HEP Discharge Summary: OPAL HAS PROGRESSED WELL IN PT- SHE NOTES SHE HAS BEEN ABLE TO RESUME HER FITNESS WALKING AND SHOPPING W/O EXACERBATION OF SXS- SHE HAS A PROGRESSIVE HEP ADDRESSING HIP / LOWER BODY STRENGTHENING. SHE HAS MET HER PT GOALS AT THIS TIME- LEFI SCAORE AT D/C WAS 55/80, AND, AT EVAL, 32/80. Electronically signed by: SU MUNOZ,PT Please sign and return to therapist. Thank you for your referral.
== END 2025-03-09 12:19 | disposition home or self-care (01) ==
LOC: HO.PT 11:00
PROVIDERS: PCP Internal Medicine; Visit Provider Internal Medicine
DX: M79.672 Pain in left foot (principal)
CPT/HCPCS: 97110; 97112; 97140; 97162

== ENCOUNTER 2025-08-01 11:03 | Outpatient (REF) | payer MEDICARE, SELFPAY ==
[2025-08-01 11:58] LABS: Hematocrit 40.9 % (37.0-47.0); Hemoglobin 13.8 g/dl (12.0-16.0); Imm Gran Abs Auto 0.04 X10*3/uL (0.00-0.03); Imm Gran Pct Auto 0.8 % (0.0-0.4); Lymphocytes Absolute Auto 1.1 X10*3/uL (1.2-4.9); MANUAL DIFF FLAG SCAN; Mean Corpuscular HGB Conc 33.7 g/dl (31.0-35.0); Mean Corpuscular Hemoglobin 31.3 pg (27.0-33.0); Mean Corpuscular Volume 92.7 fL (80.0-98.0); NRBC Abs Auto 0.000 X10*3/uL (0.0-0.012); NRBC Pct Auto 0.0 /100WBC (0.0-0.2); PLT CLUMP 1; Red Blood Count 4.41 X10*6/uL (4.20-5.50); SCAN SMEAR FLAG 1
[2025-08-01 12:19] LABS: Appearance Urine Clear; Glucose Urine UA Negative (Negative); PH 5.5 (5.0-9.0); Specific Gravity - Urine 1.010 (1.005-1.025); UMIC TRIGGER UACC YES
[2025-08-01 12:28] LABS: Alanine Aminotransferase 20 U/L (0-31); Albumin Level 4.7 g/dL (3.5-5.0); Alkaline Phosphatase 66 U/L (39-117); Anion Gap 12 (12-20); Aspartate Amino Transferase 26 U/L (5-31); Blood Urea Nitrogen 25 mg/dL (9-16); Calcium 10.2 mg/dL (8.4-10.2); Carbon Dioxide 29 mmol/L (22-29); Chloride 105 mmol/L (96-108); Cholesterol 223 mg/dL (<200); Estimated Glomerular Filt Rate 44; HDL Cholesterol 56 mg/dL (>40); Magnesium 2.2 mg/dL (1.6-2.6); Potassium 5.2 mmol/L (3.3-5.1); Sodium 141 mmol/L (135-145); Total Protein 7.2 g/dL (6.5-8.0); Triglycerides 133 mg/dL (<150)
[2025-08-01 12:34] LABS: Free T4 (Free Thyroxine) 0.92 ng/dL (0.71-1.85); Thyroid Stimulating Hormone 1.93 uIU/mL (0.32-4.0)
[2025-08-01 13:09] LABS: White Blood Count 5.1 X10*3/uL (4.8-10.8)
[2025-08-01 13:23] LABS: Folate 13.1 ng/mL (> or = 4.0); Vitamin B12 569 pg/mL (200-900)
--- OUTSIDE RECORDS SUMMARY | 2025-08-01 13:27 | XMS_ITS | Encounter Summary ---
Author Organization [facility] Address [address] [place] [address] Phone Care Team Providers Care Mailroom Manager Name Role Phone Tim Tucker MD Primary Care Provider [phone] Encounter Details Date Type Department Care Team (Late st Contact Info) Description 01/30/2024 Documentation Only [facility] [address] [place] [address] Jennifer Torres [address] [place] [phone] Social History Tobacco Use Types Packs/Day Years [...] Care Team (Late st Contact Info) Description 02/06/2026 3:00 PM EDT Office Visit [facility] [place] [address] Cristhian [address]AV[address] [place] [phone] Jonathan Esteves MD [address] [place] [address] [place] [address] documented as of this encounter Visit Diagnoses Not on filedocumented in this encounter Care Teams Mailroom Manager Relationship Specialty Start Date End Date Tim Tucker MD [facility] INTERNAL [address] D[place]OK[place] PCP - General Internal Medicine 12/16/23 documented as of this encounter
--- OUTSIDE RECORDS SUMMARY | 2025-08-01 13:27 | XMS_ITS | Encounter Summary ---
Author Organization [facility] Address [address] [place] [address] Phone Care Team Providers Care Global Process Owner Name Role Phone Tim Tucker MD Primary Care Provider Encounter Details Date Type Department Care Team (Late st Contact Info) Description 02/10/2024 Documentation Only [facility] [address] [place] [address] Jennifer Torres [address] [place] [phone] Social History Tobacco Use Types Packs/Day Years [...] Visit [facility] [address] Cristhian Z[address] [place] [address] Jonathan Esteves MD [address] [place] [address] [place] [address] documented as of this encounter Visit Diagnoses Not on filedocumented in this encounter Care Teams Global Process Owner Relationship Specialty Start Date End Date Tim Tucker MD [facility] INTER[facility] [address] [place]OK[place] PCP - General Internal Medicine 12/16/23 documented as of this encounter
--- OUTSIDE RECORDS SUMMARY | 2025-08-01 13:27 | XMS_ITS | Clinical Summary ---
Author Organization [facility] Address [address] [place] [address] Phone Care Team Providers Care Dobby Looms Pegger Name Role Phone Tim Tucker MD Primary Care Provider [phone] Allergies Active Allergy Reactions Criticality Noted Date Comments Amoxicillin 01/30/2024 Atorvastatin 01/30/2024 Clarithromycin 01/30/2024 Doxycycline 01/30/2024 Erythromycin 01/30/2024 Latex 01/30/2024 Penicillins 01/30/2024 Omeprazole 01/30/2024 Simvastatin 01/30/2024 Sulfadiazine 01/30/2024 Medications docusate sodium (COLACE) 100 MG capsule TAKE 2 CAPSULE 2 X 100 MG) BY MOUTH DAILY NEEDED FOR CONSTIPATION . 01/21/2024 Active pravastatin (PRAVACHOL) 10 MG tablet Take [...] Visit [facility] [place] Dr Cristhian [address] [place] [address] Jonathan Esteves MD [address] [place] [address] [place] [address] Health Maintenance Due Date Last Done Comments Pneumococcal Vaccine: 50+ Ye ars (1 of 2 - PCV) 1964 Influenza Vaccine (#1) 2025 Hepatitis B Vaccine Aged Out No longe r eligible based on patient's age to complete this topic Insurance [facility] Care Teams Dobby Looms Pegger Relationship Specialty Start Date End Date Tim Tucker MD [facility] [place] [address] [place] PCP - General Internal Medicine 12/16/23
--- OUTSIDE RECORDS SUMMARY | 2025-08-01 13:27 | XMS_ITS | Encounter Summary ---
Author Organization [facility] Address [address] [place] [address] Phone Care Team Providers Care Machinist Supervisor Name Role Phone Tim Tucker MD Primary Care Provider [phone] Encounter Details Date Type Department Care Team (Late st Contact Info) Description 02/10/2024 Documentation Only [facility] [address] [place] [address] Jennifer Torres [address] [place] [phone] Social History Tobacco Use Types Packs/Day Years [...] Visit [facility] [address] Cristhian [address] [place] [phone] Jonathan Esteves MD [address] [place] [address] [place] [address] documented as of this encounter Visit Diagnoses Not on filedocumented in this encounter Care Teams Machinist Supervisor Relationship Specialty Start Date End Date Tim Tucker MD [facility] INTERNAL [address] [place]OK[place] PCP - General Internal Medicine 12/16/23 documented as of this encounter
--- OUTSIDE RECORDS SUMMARY | 2025-08-01 13:27 | XMS_ITS | Encounter Summary ---
Author Organization [facility] Address [address] [facility] [address] [place] [address] Phone Care Team Providers Care Control System Manager Name Role Phone Gera Baires MD Primary Care Provider [phone] Encounter Details Date Type Department Care Team (Latest Contact Info) Description 09/07/2018 Transcribe Orders [facility] Specimen Processing [address] [place] [address] Gera Baires MD [address] [place] [id number] [email or web address] Abscess (Primary Dx) Social History Tobacco Use Types Packs/Day Years Used Date Smoking Tobacco: Never Assessed Comments Unknown Sex and Gender Information Value Date Recorded Sex Assigned at Not on file Legal Sex Female 4:59 PM EST Gender Identity Not on file Sexual Orientation Not on file documented as of this encounter Plan of Treatment Not on file documented as of this encounter Results * (ABNORMAL) Wound culture/smear (09/07/2018 12:00 PM EST) Specimen Source/ Description ABSCESS LEFT CHEEK ABSCESS ABSCESS [facility] Special Requests None [facility] GRAM STAIN Few WBC'S , Many GRAM VARIABLE RODS [facility] Culture/Test MIXED ORGANISMS RESEMBLING CUTANEOUS RAMÍREZ(A) [facility] Report Status 09/09/2018 FINAL [facility] Other (Abscess) 09/07/2018 1 2:00 PM EST 09/07/2018 9:06 PM EST us Gera Baires MD LAB MICROBIOLOGY CULTURE ORD ERABLES Final Result [facility] [address] [place] [address] documented in this encounter Visit Diagnoses Diagnosis Abscess- Primary Cellulitis and abscess of unspecified site documented in this encounter Care Teams Control System Manager Relationship Specialty Start Date End Date Gera Baires MD [address] [place] [address] [email or web address] PCP - General Otolaryngology 09/07/18 documented as of this encounter Additional Source Comments The information contained in this document represents components of the legal health record. It is not the complete legal health record.[facility]
--- OUTSIDE RECORDS SUMMARY | 2025-08-01 13:27 | XMS_ITS | Encounter Summary ---
Author Organization [facility] Address [address] [place] [address] Phone Care Team Providers Care Antique Dealer Name Role Phone Tim Tucker MD Primary Care Provider [phone] Encounter Details Date Type Department Care Team (Late st Contact Info) Description 01/30/2024 Documentation Only [facility] Of [address] [place] [address] Jennifer Torres [address] [place] [phone] Social History Tobacco Use Types Packs/Day Years [...] Visit [facility] [place] [address] Cristhian [address] [place] [address] Jonathan Esteves MD [address] [place] [address] [place] [address] documented as of this encounter Visit Diagnoses Not on filedocumented in this encounter Care Teams Antique Dealer Relationship Specialty Start Date End Date Tim Tucker MD [facility] INTERNAL [address] DIN[place]OK[place] PCP - General Internal Medicine 12/16/23 documented as of this encounter
--- OUTSIDE RECORDS SUMMARY | 2025-08-01 13:27 | XMS_ITS | Encounter Summary ---
Author Organization [facility] Address [address] [place] [address] Phone Care Team Providers Care Appeals Writer Name Role Phone Tim Tucker MD Primary Care Provider [phone] Encounter Details Date Type Department Care Team (Late st Contact Info) Description 02/10/2024 Documentation Only [facility] Of [address] [place] [address] Jennifer Torres [address] [place] [phone] Social History Tobacco Use Types Packs/Day Years [...] Visit [facility] Of [facility] [address] Cristhian [address] [place] [address] Jonathan Esteves MD [address] [place] [address] [place] [address] documented as of this encounter Visit Diagnoses Not on filedocumented in this encounter Care Teams Appeals Writer Relationship Specialty Start Date End Date Tim Tucker MD [facility] INTERNAL [address] D[place]OK[place] PCP - General Internal Medicine 12/16/23 documented as of this encounter
--- OUTSIDE RECORDS SUMMARY | 2025-08-01 13:27 | XMS_ITS | Encounter Summary ---
Author Organization [facility] Address [address] [place] [address] Phone Care Team Providers Care Pathological Technician Name Role Phone Tim Tucker MD Primary Care Provider [phone] Encounter Details Date Type Department Care Team (Late st Contact Info) Description 01/30/2024 Documentation Only [facility] Of [address] [place] [address] Jennifer Torres [address] [place] [phone] Social History Tobacco Use Types Packs/Day Years [...] Visit [facility] Of [facility] [place] [address] Cristhian [address] [place] [phone] Jonathan Esteves MD [address] [place] [address] [place] [address] documented as of this encounter Visit Diagnoses Not on filedocumented in this encounter Care Teams Pathological Technician Relationship Specialty Start Date End Date Tim Tucker MD [facility] INTERNAL [address] [place]OK[place] PCP - General Internal Medicine 12/16/23 documented as of this encounter
--- OUTSIDE RECORDS SUMMARY | 2025-08-01 13:27 | XMS_ITS | Encounter Summary ---
Author Organization [facility] Address [address] [place] [address] Phone Care Team Providers Care Investment Representative Name Role Phone Tim Tucker MD Primary Care Provider [phone] Encounter Details Date Type Department Care Team (Late st Contact Info) Description 02/18/2024 Documentation Only [facility] [address] [place] [address] Jayleen Lomax [address] [place] [phone] Social History Tobacco Use Types Packs/Day Years [...] Visit [facility] Of [facility] [address] Cristhian [address] [place] [address] Jonathan Esteves MD [address] [place] [address] [place] [address] documented as of this encounter Visit Diagnoses Not on filedocumented in this encounter Care Teams Investment Representative Relationship Specialty Start Date End Date Tim Tucker MD [facility] [place] [address] DINESH [place]OK[place] PCP - General Internal Medicine 12/16/23 documented as of this encounter
--- OUTSIDE RECORDS SUMMARY | 2025-08-01 13:27 | XMS_ITS | Clinical Summary ---
Author Organization [facility] Address [address] [address] Phone Care Team Providers Care Open Hearth Furnace Operator Name Role Phone Gera Baires MD Primary Care Provider Social History Tobacco Use Types Packs/Day Years Used Date Smoking Tobacco: Never Assessed Education Answer Date Recorded Are you interested in more education? Not on angelo e 01/17/2023 Are you concerned about learning? Not on file 01/17/2023 No 01/17/2023 No 01/17/2023 Digital Access Answer Date Recorded No 02/18/2023 No 02/18/2023 No 02/18/2023 Reliable internet access at home? Not on file 02/18/2023 Device with a working camera? Not on file Comments Unknown Sex and Gender Information Value Date Recorded Sex Assigned at Not on file Legal Sex Female 4:59 PM EST Gender Identity Not on file Sexual Orientation Not on file Plan of Treatment Not on file Medical Devices Not on file Insurance [facility] [address] [place] [place] [address] [place] [address] [place] [address] [place] [address] [place] [address] [place] [address]O [employer] Care Teams Open Hearth Furnace Operator Relationship Specialty Start Date End Date Gera Baires MD [address] [place] [address] [email or web address] PCP - General Otolaryngology 09/07/18 Additional Source Comments The information contained in this document represents components of the legal health record. It is not the complete legal health record.[facility]
--- OUTSIDE RECORDS SUMMARY | 2025-08-01 13:27 | XMS_ITS | Encounter Summary ---
Author Organization [facility] Address [address] [place] [address] Phone Care Team Providers Care Compliance Lead Name Role Phone Tim Tucker MD Primary Care Provider [phone] Encounter Details Date Type Department Care Team (Late st Contact Info) Description 02/10/2024 Documentation Only [facility] Of [address] [place] [address] Jennifer Torres [address] [place] [phone] Social History Tobacco Use Types Packs/Day Years [...] Visit [facility] Of [facility] [address] Cristhian [address] [place] [address] Jonathan Esteves MD [address] [place] [address] [place] [address] documented as of this encounter Visit Diagnoses Not on filedocumented in this encounter Care Teams Compliance Lead Relationship Specialty Start Date End Date Tim Tucker MD [facility] INTERNAL [address] D[place]ESH [place]OK[place] PCP - General Internal Medicine 12/16/23 documented as of this encounter
--- OUTSIDE RECORDS SUMMARY | 2025-08-01 13:27 | XMS_ITS | Encounter Summary ---
Author Organization [facility] Address [address] [place] [address] Phone Care Team Providers Care Office Technology Instructor Name Role Phone Tim Tucker MD Primary Care Provider [phone] Encounter Details Date Type Department Care Team (Late st Contact Info) Description 01/30/2024 Documentation Only [facility] [address] [place] [address] Jennifer Torres [address] [place] [phone] Social History Tobacco Use Types Packs/Day Years [...] Visit [facility] [address] [place] [phone] Jonathan Esteves MD [address] [place] [address] [place] [address] documented as of this encounter Visit Diagnoses Not on filedocumented in this encounter Care Teams Office Technology Instructor Relationship Specialty Start Date End Date Tim Tucker MD [facility] [address] DIN[place] STOKES PCP - General Internal Medicine 12/16/23 documented as of this encounter
== END 2025-08-01 11:04 | disposition home or self-care (01) ==
LOC: HO.LAB 11:03
PROVIDERS: PCP Internal Medicine; Visit Provider Internal Medicine
DX: R73.02 Impaired glucose tolerance (oral) (principal); E78.00 Pure hypercholesterolemia, unspecified
CPT/HCPCS: 36415; 80053; 80061; 81001; 82306; 82607; 82746; 83036; 83735; 84439; 84443; 85025

== ENCOUNTER 2025-08-04 13:36 | Outpatient (AMB) | payer MEDICARE, SELFPAY ==
[2025-08-04 13:44] VITALS: BP 128/62; PULSE 71; O2SAT 98; BMI 21.0
--- NOTE | 2025-08-04 13:44 | A.OFFPC_ITS ---
Vital Signs 08/04/25 13:44 Height 5 ft 7 in Weight 134 lb BMI 21.0 BP 128/62 Blood Pressure Location Lt brachial Position Sitting Pulse 71 Pulse Source Pulse Oximeter Pulse Oximetry (%) 98 Oxygen Delivery Method Room Air Intake Visit Reasons: annual exam Allergies atorvastatin (Lipitor) Allergy (Unknown, Verified 08/04/25 13:45) Unknown clarithromycin (From Biaxin) Allergy (Unknown, Verified 08/04/25 13:45) Unknown doxycycline Allergy (Unknown, Verified 08/04/25 13:45) rash, vision changes erythromycin base Allergy (Unknown, Verified 08/04/25 13:45) Unknown influenza virus vaccine tvs [id number](65 years up) (From Fluzone High-Dose 2018- (PF)) Allergy (Unknown, Verified 08/04/25 13:45) vomitting moxifloxacin (Avelox) Allergy (Unknown, Verified 08/04/25 13:45) Unknown omeprazole (Prilosec) Allergy (Unknown, Verified 08/04/25 13:45) Unknown scalp rx simvastatin Allergy (Unknown, Verified 08/04/25 13:45) Unknown Sulfa (Sulfonamide Antibiotics) Allergy (Unknown, Verified 08/04/25 13:45) SWELLING flu shot Adverse Reaction (Intermediate, Uncoded 08/04/25 13:45) coughing Medication List - Last Reconciled 08/04/25 by Tim Tucker MD alprazolam (Xanax) 0.25 mg PO DAILY PRN 90 days cholecalciferol (vitamin D3) 25 mcg PO DAILY coenzyme Q10 (Co Q-10) 200 mg PO DAILY docusate sodium (Stool Softener) 200 mg (2 x 100 mg) PO DAILY PRN magnesium glycinate 100 mg PO DAILY pravastatin 10 mg PO DAILY [THC gummy PO] Tobacco use date assessed: 01/14/25 Fall risk assessment: No Falls in past year Last assessed Fall Risk: 08/04/25 Dental Screening Dental Screen Date: 01/14/25 [facility] Medical History (Updated 08/04/25 @ 14:13 by Tim Tucker MD) Drug allergy, antibiotic Breast cancer screening by mammogram Constipation Elevated blood pressure reading Osteoarthritis of right hip Anxiety Hypercholesterolemia Lumbar disc herniation Diverticulosis Surgical History Melanoma History of right hip replacement History of colectomy Hx of breast implants, bilateral Family History Father CVD (cardiovascular disease) Mother CVD (cardiovascular disease) Diabetes Social History (Updated 07/13/24 @ 11:49 by Tim Tucker MD) Housing: House Alcohol intake: current Alcohol intake frequency: does not drink Alcohol type: wine Comment: once Q 2 months 1 drink Patient Tobacco Use Status: Former Tobacco user Tobacco use type: Cigarette Years Smoked: teenager e-Cigarette/Vaping Use: Never Used Second Hand Smoke Exposure: No service: No Current occupational status: retired Cognitive needs: No Hearing needs: No Vision needs: Yes Questionnaire PHQ-9 Over the last 2 weeks, how often have you been bothered by any of the following problems? 1. Little interest or pleasure in doing things: not at all 2. Feeling down, depressed, or hopeless: not at all 3. Trouble falling or staying asleep, or sleeping too much: not at all 4. Feeling tired or having little energy: several days 5. Poor appetite or overeating: not at all 6. Feeling bad about yourself - or that you are a failure or have let yourself or your family down: not at all 7. Trouble concentrating on things, such as reading the newspaper or watching television: not at all 8. Moving or speaking so slowly that other people could have noticed. Or the opposite - being so fidgety or restless that you have been moving around a lot more than usual: not at all 9. Thoughts that you would be better off or of hurting yourself in some way: not at all Total score: 1 Depression Screening Interpretation: Positive Depression Screening Done: Yes Source: Developed by Drs. Meliton Lind, Barbara George, Leander Ibrahim and colleagues, with an educational prudencio from [email or web address]. Thrive Questionnaire Date Thrive assessed: 01/14/25 I am a: Patient What is your living situation today?: I have a steady place to live Within the past 12 months, did the food you bought not last and you didn't have the money to get more?: Never true Within the past 12 months, did you worry whether your food would run out before you got money to buy more?: Never true Do you have trouble paying for medicines?: No Do you have trouble getting transportation to medical appointments?: No Do you have trouble paying your heating and electricity bill?: No Do you have trouble taking care of your child, family member or friend?: No Do you have trouble with day-to-day activities such as bathing, preparing meals, shopping, managing finances, etc.?: No Are you currently unemployed and looking for a job?: No Are you interested in more education?: No Please select the resources that you would like help with: None Currently or been in a relationship where the following occur: No concerns reported THRIVE Score: 0 AUDIT C Alcohol Use Questionnaire (AUDIT-C) 1. How often do you have a drink containing alcohol?: Monthly or less 2. How many drinks containing alcohol do you have on a typical day when you are drinking?: 1 or 2 3. How often do you have six or more drinks on one occasion?: Never Total Score: 1 TEGAN-7 AMB Questionnaire TEGAN-7 Date TEGAN - 7 assessed: 01/14/25 Source: Developed by Drs. Meliton Lind, Barbara George, Leander Ibrahim and colleagues, with an educational prudencio from [email or web address]. Review of Systems Const Denies poor appetite and Denies weakness Eyes Denies no additional complaints ENT Reports Normal hearing present, Denies dizziness, Denies nasal congestion, Denies tinnitus and Denies sore throat Card Denies chest pain, Denies syncope, Denies rapid heart rate and Denies dyspnea Resp Denies cough and Denies dyspnea GI Denies change in stool character, Reports constipation, Denies diarrhea, Denies nausea and Denies vomiting Denies urinary frequency, Denies difficulty voiding and Denies dysuria Neuro Reports Normal hearing present, Denies confusion, Denies dizziness, Denies syncope and Denies weakness Psych Denies confusion Physical exam (Primary Care) Vital Signs: Last Vital Signs Pulse 71 08/04/25 13:44 BP 128/62 08/04/25 13:44 Pulse Ox 98 08/04/25 13:44 Oxygen Delivery Method Room Air 08/04/25 13:44 BMI result Body Mass Index 21.0 Tobacco/Smoking Status: Tobacco use Status Tobacco use date assessed 01/14/25 08/04/25 13:48 Patient Tobacco Use Status Former Tobacco user 08/04/25 13:48 Tobacco use type Cigarette 08/04/25 13:48 e-Cigarette/Vaping Use Never Used 08/04/25 13:48 PHQ-9: PHQ-9 Score PHQ-9: Total score 1 08/04/25 13:56 Depression Screening Interpretation: Positive Thrive Assessment: Date of Thrive Assessment Date Thrive assessed 01/14/25 08/04/25 13:48 Currently or been in a relationship where the following occur: No concerns reported Const General: No confusion Orientation/consciousness: No confusion HENMT Head: Yes normocephalic Ears: external ears normal and TM's normal bilaterally Face and sinus: Yes normal facial exam Mouth: moist mucous membranes Throat: Yes tonsils normal Eyes Conjunctivae: conjunctivae normal Pupils: Equal, round and reactive pupils present and Pupil accommodation reflex normal Direct Ophthalmoscopy: normal light reflex Neck Neck: No lymphadenopathy Thyroid: Thyroid normal Chest Chest palpation & inspection: normal inspection of the chest Resp Effort & Inspection: normal respiratory effort and no audible wheezes Auscultation: clear to auscultation bilaterally, no crackles, no wheezes and lung sounds not diminished Cardio Rate: regular rate Rhythm: regular rhythm Peripheral pulses: radial pulses present and dorsalis pedis present GI Palpation (GI): no masses Auscultation: normal bowel sounds and normoactive bowel sounds Rectal Exam - Female: deferred Skin General skin exam: no rashes or lesions noted Rashes: no rashes Neuro General: No confusion Cranial nerves: Yes Equal, round and reactive pupils present and Yes Normal hearing present Cognition (Neuro): normal cognition Gait exam (Neuro): Normal gait present Motor exam (neuro): 5/5 motor strength present throughout Deep tendon reflexes (DTR's): Right brachioradialis reflex intensity grade: 2+, Left brachioradialis reflex intensity grade: 2+, Right patellar reflex intensity grade: 2+ and Left patellar reflex intensity grade: 2+ Extrem General: No edema Coding Level of Care Code Est Pt Prev Care >65y(79421) Diagnoses Annual physical exam Z00.00 Impaired glucose tolerance R73.02 Hypercholesterolemia E78.00 Age-related osteoporosis without current pathological fracture M81.0 Generalized anxiety disorder F41.1 Chronic kidney disease, stage 3b N18.32 Breast cancer screening by mammogram Z12.31 Hip pain, left M25.552 Assessment & Plan Assessment & Plan (1) Annual physical exam: Code(s): Z00.00 - Encounter for general adult medical examination without abnormal findings Category: Medical Plan: Patient is advised to eat healthy, keep well hydrated, keep active and have adequate sleep. (2) Impaired glucose tolerance: Code(s): R73.02 - Impaired glucose tolerance (oral) Category: Medical Plan: Decrease the amount of carbohydrate intake, pasta, bread, rice and potatoes are all sugar and that is aside from all the sweet stuff, remember that fruits are good but they are Sweet also. (3) Hypercholesterolemia: Code(s): E78.00 - Pure hypercholesterolemia, unspecified Category: Medical Plan: Avoid fried foods, chicken skin, eggs, butter margarine, pastries and meat. Be it pork or beef they have a lot of cholesterol LDL goal of less than 130 and triglyceride of less than 150 on pravastatin 10 mg once a day (4) Age-related osteoporosis without current pathological fracture: Code(s): M81.0 - Age-related osteoporosis without current pathological fracture Category: Medical Plan: discussed about repeat mammogram and bone density. Discussed about calcium and vitamin-D (5) Generalized anxiety disorder: Comment: Decline any referral for counseling Code(s): F41.1 - Generalized anxiety disorder Category: Medical Plan: continue with present medications of alprazolam as needed (6) Chronic kidney disease, stage 3b: Code(s): N18.32 - Chronic kidney disease, stage 3b Category: Medical Plan: patient follows up with Nephrology and stable renal function (7) Breast cancer screening by mammogram: Code(s): Z12.31 - Encounter for screening mammogram for malignant neoplasm of breast Category: Medical (8) Hip pain, left: Code(s): M25.552 - Pain in left hip Category: Medical Plan History of Present Illness The patient is an 80-year-old female presenting for a physical exam with a history of impaired glucose tolerance, hypercholesterolemia, generalized anxiety disorder, osteoporosis, stage 3B chronic kidney disease, and tubular adenoma of the colon. She was last seen by nephrology in January and her kidney disease is considered stable, with yearly follow-ups recommended. Her last colonoscopy was in February 2021, where four tubular adenoma polyps were found. The recommendation at the time was for a repeat colonoscopy in 5-7 years. The patient's last bone density scan was in December 2022. Recent blood work from August 01 showed a stable renal function at 1.18, a fasting blood sugar of 101, and a hemoglobin A1c of 5.8. Her LDL has increased to 141. She reports new pain in her back that radiates over her hip, which has been tender since she had bursitis. She also has a history of hip replacement, uses a heel lift, and experiences recurrent plantar fasciitis. She has a history of allergies to atorvastatin, Biaxin, doxycycline, erythromycin, the flu shot, Avelox, omeprazole, simvastatin, and sulfa drugs. Her current medications and supplements include pravastatin, CoQ10, and magnesium daily. She takes docusate daily for constipation, seldom takes Xanax for anxiety, and infrequently takes vitamin D. She also reports occasional use of a THC gummy to aid with sleep. Health Maintenance - Breast cancer screening: The patient's mammogram is due, and a discussion was held about repeating it. - Osteoporosis screening: The last bone density scan was in December 2022, and a repeat scan was discussed and ordered to monitor for changes. - Colon cancer screening: The last colonoscopy in February 2021 revealed tubular adenomas, and it was discussed that a follow-up next year would be appropriate. - Vaccinations: The patient does not get the flu shot due to an allergy. - She is up-to-date on her tetanus and pneumonia shots. - It was noted that the shingles shot is a two-part series for life, and the patient has received the second dose last month. - COVID and RSV vaccines are available in the pharmacy if she chooses to get them. Social History - Alcohol use: Reports drinking one alcoholic beverage about once a month. - Tobacco use: Denies smoking, having quit at age 18. - Substance use: Reports occasionally taking a THC gummy to help with sleep. - Nutrition: Reports receiving Meals on Wheels and notes it is harder for her to cook now. - She has been eating more protein, including whole eggs, as advised by her termite helper. - Activity: Reports less exercise [place], which causes her hip to hurt when she walks. Review of Systems - Constitutional: Denies fever, nausea, or vomiting. - Eyes: Reports having had an eye check-up a couple of months ago. - Ears: Reports using hearing aids. - GI: Denies heartburn or blood in stools. - Reports chronic constipation requiring docusate. - Reports dysphagia with rice or spaghetti. - : Reports nocturia, waking two times at night to urinate. - Denies dysuria. - Musculoskeletal: Reports pain in her back that radiates around her hip. - Reports hip tenderness since having bursitis. - Reports plantar fasciitis. - Cardiovascular: Denies chest heaviness and discomfort. - Denies waking up short of breath. - Neurological: Reports neuropathy in her feet. - Denies dizziness or syncope. - Respiratory: Denies cough. Physical Exam General: Cooperative, healthy appearing, comfortable, no acute distress and well developed Orientation: Patient oriented x3 Limitations: No limitations Head: Normal to inspection Ears: Hearing aids present Nose: Normal external nose present Face and sinus: Normal facial exam Eyes: Appearance normal, both eyes and all related structures Neck: Normal visual inspection and Yes full ROM Respiratory: Normal respiratory effort and able to speak in complete sentences. Clear to auscultation bilaterally Cardiovascular: Regular rate and rhythm. Normal S1 and S2 GI: Normal to inspection. Soft to palpation and nontender, except for mild pain in the stomach area when pressing deeply Skin: No rashes or lesions noted Neuro: Patient oriented x3 Extremities: Normal to inspection, except for tenderness in the hip area due to bursitis and plantar fasciitis present Results - Labs from August 01: - CBC: Blood count is normal; patient is not anemic. - Platelets are slightly low but stable. - CMP: Sodium is normal, potassium is mildly elevated by 0.1, renal function is stable at 1.18, and magnesium and liver function are within normal limits. - Glucose: Fasting blood sugar is 101. - Hemoglobin A1c: 5.8, decreased from a prior 5.9. - Lipid Panel: LDL has increased to 141 (goal <130), and total cholesterol is 223. - TSH: Thyroid function is normal. - Imaging and Procedures: - Bone density scan (December 2022): Results not detailed, but consistent with osteoporosis. - Colonoscopy (February 2021): Four tubular adenomas were found. Plan Patient was informed and verbally consented to the use of an ambient scribe for clinic note documentation during this visit. 1. Hypercholesterolemia The patient's LDL has increased to 141 and total cholesterol to 223, which is above goal. This may be due to dietary changes, including receiving Meals on Wheels and increased consumption of egg yolks as per nephrology advice. The plan is to hold off on adjusting her pravastatin at this time. Advised to limit egg yolk intake. A fasting blood work will be rechecked in 3 months, and if the cholesterol remains elevated, her medication will be adjusted. 2. Impaired Glucose Tolerance The patient's hemoglobin A1c has improved to 5.8 from a previous 5.9, though her fasting blood sugar is slightly elevated at 101. Pharmacologic treatment is not indicated at this time. The patient was advised to be cautious with carbohydrates and sweets. Blood sugar levels will be monitored and rechecked in three months along with her lipids. 3. Hip And Lower Back Pain The patient complains of pain in the back that radiates around her hip, which she notes has been tender since a bout of bursitis. The exam revealed tenderness over the hip. An x-ray of the hip will be ordered to further evaluate. 4. Preventative Care An order for a mammogram will be placed as it is currently due. A repeat bone density scan will also be ordered to follow up on her osteoporosis. A follow-up colonoscopy is planned for next year, given her history of tubular adenomas. Discussed available vaccines including shingles, RSV, and COVID, noting they are available at the pharmacy. 5. Chronic Kidney Disease, Stage 3B The patient's chronic kidney disease is stable, confirmed by recent lab work showing a creatinine of 1.18. She has been following with nephrology on a yearly basis, and it was advised to continue this follow-up. 6. Thrombocytopenia The patient has a stable, mild thrombocytopenia. It was explained that the condition is not severe enough to warrant an invasive workup such as a bone marrow biopsy, and we will continue to monitor her blood counts. Discussion Notes I reviewed the patient's recent lab results with her, highlighting the increase in her cholesterol levels while her HbA1c has shown slight improvement. We discussed that the dietary changes, including Meals on Wheels and increased egg yolk consumption, are likely contributors to her elevated cholesterol. I explained that we would recheck her fasting lipids in three months and will adjust her medication if the numbers remain high. I reassured her that her chronic kidney disease and mild thrombocytopenia are stable and do not warrant more invasive testing at this time. We discussed her upcoming health screenings, and I placed orders for a mammogram, a repeat bone density scan, and an x-ray of her hip. We also discussed planning for a follow-up colonoscopy next year, and I confirmed that she is healthy enough for the procedure. We reviewed her vaccinations, noting her allergy to the flu shot, and discussed the availability and potential side effects of the shingles, RSV, and COVID vaccines. The patient agreed to defer a rectal exam as she will be seeing a bingo clerk next year. Patient Instructions - Please schedule and complete your mammogram, bone density scan, and hip X-ray. - An order has been placed for you to have fasting blood work done in three months to recheck your cholesterol and sugar levels. - To help lower your cholesterol, try to limit eating egg yolks to 2-3 times per week. - Continue taking your current medications, including pravastatin for cholesterol and docusate for constipation. - Continue to follow up with your kidney doctor once a year. - We will plan for you to have a colonoscopy next year. - Vaccines for shingles, RSV, and COVID are available at the pharmacy if you decide you would like to get them. Orders: Orders XR DEXA axial skeleton Today M81.0 - Age-related osteoporosis without current pathological fracture Comprehensive Met. Panel Today R73.02 - Impaired glucose tolerance (oral) Lipid Panel 3 Months E78.00 - Pure hypercholesterolemia, unspecified XR hip LT w PEL1V Today M25.552 - Pain in left hip MM tomosynthesis screen imp BI Today Z12.31 - Encounter for screening mammogram for malignant neoplasm of breast Complete Blood Count Auto Diff 3 Months R73.02 - Impaired glucose tolerance (oral) Hemoglobin A1c 3 Months R73.02 - Impaired glucose tolerance (oral)
--- OUTSIDE RECORDS SUMMARY | 2025-08-04 16:58 | XMS_ITS | Encounter Summary ---
Author Organization [facility] Address [address] [place] [address] Phone Care Team Providers Care Mesh Man Name Role Phone Tim Tucker MD Primary Care Provider [phone] Encounter Details Date Type Department Care Team (Late st Contact Info) Description 01/30/2024 Documentation Only [facility] [address] [place] [address] Jennifer Torres [address] [place] [phone] Social History Tobacco Use Types Packs/Day Years [...] Visit [facility] [address] [place] [phone] Jonathan Esteves MD [address] [place] [address] [place] [address] documented as of this encounter Visit Diagnoses Not on filedocumented in this encounter Care Teams Mesh Man Relationship Specialty Start Date End Date Tim Tucker MD [facility] [address] DINESH STOKES PCP - General Internal Medicine 12/16/23 documented as of this encounter
--- OUTSIDE RECORDS SUMMARY | 2025-08-04 16:58 | XMS_ITS | Clinical Summary ---
Author Organization [facility] Address [address] [place] [address] Phone Care Team Providers Care Registered Nurse Cardiac Telemetry Name Role Phone Tim Tucker MD Primary Care Provider [phone] Allergies Active Allergy Reactions Criticality Noted Date [...] Visit [facility] [place] [address] [place] [address] Jonathan Esteves MD [address] [place] [address] [place] [address] Health Maintenance Due Date Last Done Comments Pneumococcal Vaccine: 50+ Ye ars (1 of 2 - PCV) 1964 Influenza Vaccine (#1) 2025 Hepatitis B Vaccine Aged Out No longe r eligible based on patient's age to complete this topic Insurance [facility] Care Teams Registered Nurse Cardiac Telemetry Relationship Specialty Start Date End Date Tim Tucker MD [facility] [place] [address] [place] PCP - General Internal Medicine 12/16/23
--- OUTSIDE RECORDS SUMMARY | 2025-08-04 16:58 | XMS_ITS | Encounter Summary ---
Author Organization [facility] Address [address] [place] [address] Phone Care Team Providers Care Junior High School Teacher Name Role Phone Tim Tucker MD Primary Care Provider [phone] Encounter Details Date Type Department Care Team (Late st Contact Info) Description 02/18/2024 Documentation Only [facility] [address] [place] [address] Jayleen Lomax [address] [place] [phone] Social History Tobacco Use Types Packs/Day Years [...] Visit [facility] [address] [place] [phone] Jonathan Esteves MD [address] [place] [address] [place] [address] documented as of this encounter Visit Diagnoses Not on filedocumented in this encounter Care Teams Junior High School Teacher Relationship Specialty Start Date End Date Tim Tucker MD [facility] INTERNAL OR [address] [place] PCP - General Internal Medicine 12/16/23 documented as of this encounter
--- OUTSIDE RECORDS SUMMARY | 2025-08-04 16:58 | XMS_ITS | Encounter Summary ---
Author Organization [facility] [employer] Address [address] [place] [address] Phone Care Team Providers Care Warehouse Packaging Supervisor Name Role Phone Tim Tucker MD Primary Care Provider Encounter Details Date Type Department Care Team (Late st Contact Info) Description 01/30/2024 Documentation Only [facility] [address] [place] [address] Jennifer Torres [address] [place] [phone] Social History Tobacco Use Types Packs/Day Years [...] Visit [facility] [place] [address] Crist[address]ian [address] [place] [phone] Jonathan Esteves MD [address] [place] [address] [place] [address] documented as of this encounter Visit Diagnoses Not on filedocumented in this encounter Care Teams Warehouse Packaging Supervisor Relationship Specialty Start Date End Date Tim Tucker MD [facility] INTERNAL [address] [place] PCP - General Internal Medicine 12/16/23 documented as of this encounter
--- OUTSIDE RECORDS SUMMARY | 2025-08-04 16:58 | XMS_ITS | Encounter Summary ---
Author Organization [facility] Address [address] [place] [address] Phone Care Team Providers Care Special Effects Technician Name Role Phone Tim Tucker MD Primary Care Provider [phone] Encounter Details Date Type Department Care Team (Late st Contact Info) Description 02/10/2024 Documentation Only [facility] [address] [place] [address] Jennifer Torres [address] [place] [phone] Social History Tobacco Use Types Packs/Day Years [...] Visit [facility] Of [facility] [address] Crist[address]ian [address] [place] [phone] Jonathan Esteves MD [address] [place] [address] [place] [address] documented as of this encounter Visit Diagnoses Not on filedocumented in this encounter Care Teams Special Effects Technician Relationship Specialty Start Date End Date Tim Tucker MD [facility] INTERNAL [address] [place] PCP - General Internal Medicine 12/16/23 documented as of this encounter
--- OUTSIDE RECORDS SUMMARY | 2025-08-04 16:58 | XMS_ITS | Encounter Summary ---
Author Organization [facility] Address [address] [place] [address] Phone Care Team Providers Care Boiler Helper Name Role Phone Gera Baires MD Primary Care Provider [phone] Encounter Details Date Type Department Care Team (Latest Contact Info) Description 09/07/2018 Transcribe Orders [facility] Specimen Processing [address] [place] [address] Gera Baires MD [address] [place] [address] [email or web address] Abscess (Primary Dx) Social History Tobacco [...] Source/ Description ABSCESS LEFT CHEEK ABSCESS ABSCESS [facility] Special Requests None [facility] GRAM STAIN Few WBC'S , Many GRAM VARIABLE RODS [facility] Culture/Test MIXED ORGANISMS RESEMBLING CUTANEOUS RAMÍREZ(A) [facility] Report Status 09/09/2018 FINAL [facility] Other (Abscess) 09/07/2018 1 2:00 PM EST 09/07/2018 9:06 PM EST us Gera Baires MD LAB MICROBIOLOGY CULTURE ORD ERABLES Final Result [facility] [address] [place] [address] documented in this encounter Visit Diagnoses Diagnosis Abscess- Primary Cellulitis and abscess of unspecified site documented in this encounter Care Teams Boiler Helper Relationship Specialty Start Date End Date Gera Baires MD [address] [place] [address] [email or web address] PCP - General Otolaryngology 09/07/18 documented as of this encounter Additional Source Comments The information contained in this document represents components of the legal health record. It is not the complete legal health record.[facility]
--- OUTSIDE RECORDS SUMMARY | 2025-08-04 16:58 | XMS_ITS | Clinical Summary ---
Author Organization [facility] Address [address] [address] Phone Care Team Providers Care Front Counter Clerk Name Role Phone Gera Baires MD Primary Care Provider [phone] Social History Tobacco Use Types Packs/Day Years [...] Medical Devices Not on file Insurance [facility] [address] [place], [place] [address] [place], [place] [address] [place], [place] [address] [place] [address] [place] [place] [address] [place] [address] [facility] Care Teams Front Counter Clerk Relationship Specialty Start Date End Date Gera Baires MD [address] [place] [address] [email or web address] PCP - General Otolaryngology 09/07/18 Additional Source Comments The information contained in this document represents components of the legal health record. It is not the complete legal health record.[facility]
--- OUTSIDE RECORDS SUMMARY | 2025-08-04 16:58 | XMS_ITS | Encounter Summary ---
Author Organization [facility] Address [address] [place] [address] Phone Care Team Providers Care Floating Derrick Operator Name Role Phone Tim Tucker MD Primary Care Provider [phone] Encounter Details Date Type Department Care Team (Late st Contact Info) Description 01/30/2024 Documentation Only [facility] Of [address] [place] [address] Jennifer Torres [address] [place] [phone] Social History Tobacco Use Types Packs/Day Years [...] Visit [facility] [address] Cristhian [address] [place] [phone] Jonathan Esteves MD [address] [place] [address] [place] [address] documented as of this encounter Visit Diagnoses Not on filedocumented in this encounter Care Teams Floating Derrick Operator Relationship Specialty Start Date End Date Tim Tucker MD [facility] INTERNAL [address] [place] PCP - General Internal Medicine 12/16/23 documented as of this encounter
--- OUTSIDE RECORDS SUMMARY | 2025-08-04 16:58 | XMS_ITS | Encounter Summary ---
Author Organization [facility] Address [address] [place] [address] Phone Care Team Providers Care Media Producer Name Role Phone Tim Tucker MD Primary Care Provider [phone] Encounter Details Date Type Department Care Team (Late st Contact Info) Description 01/30/2024 Documentation Only [facility] Of [address] [place] [address] Jennifer Torres [address] [place] [phone] Social History Tobacco Use Types Packs/Day Years [...] Transplant Services Of [facility] [place] [address] Cristhian [address] [place] [phone] Jonathan Esteves MD [address] [place] [address] [place] [address] documented as of this encounter Visit Diagnoses Not on filedocumented in this encounter Care Teams Media Producer Relationship Specialty Start Date End Date Tim Tucker MD [facility] INTERNAL [address] [place] PCP - General Internal Medicine 12/16/23 documented as of this encounter
--- OUTSIDE RECORDS SUMMARY | 2025-08-04 16:59 | XMS_ITS | Encounter Summary ---
Author Organization [facility] Address [address] [place] [address] Phone Care Team Providers Care Furnace Checker Name Role Phone Tim Tucker MD Primary Care Provider [phone] Encounter Details Date Type Department Care Team (Late st Contact Info) Description 02/10/2024 Documentation Only [facility] Of [address] [place] [address] Jennifer Torres [address] [place] [phone] Social History Tobacco Use Types Packs/Day Years [...] Visit [facility] Of [facility] [place] [address] Cristhian [address] [place] [phone] Jonathan Esteves MD [address] [place] [address] [place] [address] documented as of this encounter Visit Diagnoses Not on filedocumented in this encounter Care Teams Furnace Checker Relationship Specialty Start Date End Date Tim Tucker MD [facility] INTERNAL [address] [place] PCP - General Internal Medicine 12/16/23 documented as of this encounter
--- OUTSIDE RECORDS SUMMARY | 2025-08-04 16:59 | XMS_ITS | Encounter Summary ---
Author Organization [facility] Address [address] [place] [address] Phone Care Team Providers Care Deputy County Counsel Name Role Phone Tim Tucker MD Primary Care Provider [phone] Encounter Details Date Type Department Care Team (Late st Contact Info) Description 02/10/2024 Documentation Only [facility] Of [address] [place] [address] Jennifer Torres [address] [place] [phone] Social History Tobacco Use Types Packs/Day Years [...] Visit [facility] Of [facility] [place] [address] Cristhian [address] [place] [phone] Jonathan Esteves MD [address] [place] [address] [place] [address] documented as of this encounter Visit Diagnoses Not on filedocumented in this encounter Care Teams Deputy County Counsel Relationship Specialty Start Date End Date Tim Tucker MD [facility] INTERNAL [address] [place] PCP - General Internal Medicine 12/16/23 documented as of this encounter
--- OUTSIDE RECORDS SUMMARY | 2025-08-04 16:59 | XMS_ITS | Patient Health Record ---
Author Organization [facility] Address [address] [place] [address] Care Team Providers Care Hospitalist Medical Director Name Role Phone Pavithra Briones Unavailable [phone] Reason For Referral No Information Medications Medication SIG (Take, Route, Fr equency, Duration) Notes Start Date End Date Status Simvastatin 20MG 1 ORAL daily; Duration: -3 Alcon- 2011 Active Pepcid AC 10MG 4 ORAL at bedtime; Duration: -3 Alcon- Active ALPRAZolam 0.25MG 1 ORAL three times d aily; Duration: 10 Alcon- 07/10/2012 Active Problems Problem Type SNOMED Code ICD Code Onset Dates Problem Status W/U Status Risk Notes Problem 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 Major Problem Hyperlipidemia (57636895) Other and unspecified hyperlipidemia (272.4) Active confirmed Major Problem Anxiety state (700554023) Anxiety state, unspecified (300.00) Active confirmed Major Problem Esophageal reflux (423868569) Esophageal reflux (530.81) Active confirmed Major Problem Diverticulosis of colon (finding) (257137083) Diverticulosis of colon (without mention of hemorrhage) (562.10) Active confirmed Other Problem Menopausal symptom (55447128) Symptomatic menopausal or female climacteric states (627.2) Active confirmed Major Problem Gynecological examination normal (999348961621324) Routine gynecological examination (V72.31) Active confirmed Major Problem Screening for malignant neoplasm of colon (067903143) Special screening for malignant neoplasms, colon (V76.51) Active confirmed Major Plan Of Treatment No Information Insurance Providers Payer Name Payer Address Payer Phone Subscriber Number Group Number Insured Name Patient Relationship to Insured Coverage Start Date Coverage End Date [employer]AGE [facility] [address] [facility] [place] [id number] [phone] [id number] OPAL ALCALA Self - patient is the insured
--- OUTSIDE RECORDS SUMMARY | 2025-08-04 16:59 | XMS_ITS | Encounter Summary ---
Author Organization [facility] Address [address] [place] [address] Phone Care Team Providers Care Sport Internship Name Role Phone Tim Tucker MD Primary Care Provider [phone] Encounter Details Date Type Department Care Team (Late st Contact Info) Description 02/10/2024 Documentation Only [facility] Of [address] [place] [address] Jennifer Torres [address] [place] [phone] Social History Tobacco Use Types Packs/Day Years [...] Visit [facility] [place] [address] Cristhian [address] [place] [phone] Jonathan Esteves MD [address] [place] [address] [place] [address] documented as of this encounter Visit Diagnoses Not on filedocumented in this encounter Care Teams Sport Internship Relationship Specialty Start Date End Date Tim Tucker MD [facility] INTERNAL [address] [place] PCP - General Internal Medicine 12/16/23 documented as of this encounter
--- OUTSIDE RECORDS SUMMARY | 2025-08-04 16:59 | XMS_ITS | Patient Health Record ---
Author Organization [facility] Address [address] [place] [address] Care Team Providers Care Representative Personal Service Name Role Phone Meliton Haney Unavailable [phone] Reason For Referral No Information Plan Of Treatment No Information
--- OUTSIDE RECORDS SUMMARY | 2025-08-04 16:59 | XMS_ITS | Patient Health Record ---
Author Organization [facility] Address [address] [facility] [place] [address] Care Team Providers Care Alligator Trapper Name Role Phone Tim Tucker Primary Care Provider Mario Villatoro Unavailable [phone] Allergies Allergen (clinical drug ingredient) Drug/Non Drug Allergy documented on EMR Reaction Allergy Type Onset Date Status azithromycin Azithromycin rash,itchy Drug Allergy Active sulfamethoxazole / trimethoprim Bactrim Unknown Drug Allergy [...] 1 [address] Orally Thr ee times a day; Duration: 10 day(s) Unknown Pravastatin Sodium 10 MG 1 tablet Orally Once a day; Duration: 30 day(s) Active Co Q 10 Active Xanax Active Magnesium Citrate Ac tive Coenzyme Q10 200 MG as directed Orally Unknown Lactobacillus - as directed Orally Unknown ALPRAZolam 0.25 MG 1 tablet Orally Twic e a day Unknown Physical Therapy . . . 2-3x/week; Durat ion: 3-4 weeks 05/28/2022 Active Vitamin D3 25 MCG (1000 UT) 1 capsule Or ally Once a day; Duration: 30 day(s) Unknown Social History Tobacco Use: [...] Status Risk Notes Problem Plantar fascial fibromatosis (52844526) Plantar fascial fibromatosis (M72.2) Active confirmed Plan Of Treatment Pending Test Test Name Order Date X ray : Foot, right 3V 05/28/2022 Insurance Providers Payer Name Payer Address Payer Phone Subscriber Number Group Number Insured Name Patient Relationship to Insured Coverage Start Date Coverage End Date [employer] [place] Medicare Advantage [facility] [address] [place] [address] [id number] Kristy Dent Self - patient is the insured Medical (General) History Medical History History ICD Code Anxiety Diverticulosis Hypercholesterolemia osteoarthritis Herniated disc Arthritis Cholesterol Measles Mumps Chicken pox Melanoma Bone implants/screws Transfusions Surgical History Surgery Date(Month/Year) right hip replacement colectomy melanoma excision breast implants bowel resection [place] Reason [place] [facility] [place] 8 [place]
== END 2025-08-04 14:26 | disposition home or self-care (01) ==
LOC: HO.HMCH 13:37
PROVIDERS: PCP Internal Medicine; Visit Provider Internal Medicine
DX: Z00.00 Encounter for general adult medical examination without abnormal findings (principal); R73.02 Impaired glucose tolerance (oral); E78.00 Pure hypercholesterolemia, unspecified; M81.0 Age-related osteoporosis without current pathological fracture; F41.1 Generalized anxiety disorder; N18.32 Chronic kidney disease, stage 3b; Z12.31 Encounter for screening mammogram for malignant neoplasm of breast; M25.552 Pain in left hip

== ENCOUNTER 2025-08-04 13:36 | Outpatient (REF) | payer MEDICARE, SELFPAY ==
--- NOTE | ~2025-08-04 | XR_ITS ---
EXAMINATION: XR HIP, LEFT CLINICAL INFORMATION: M25.552 - Pain in left hip COMPARISON: CT of the abdomen and pelvis most recent May 2023 TECHNIQUE: Two views of the left hip and one view of the pelvis. FINDINGS: Mild osteoarthritis of the left hip joint with joint space narrowing and osteophyte formation. No fracture, dislocation or bone lesion. Partially visualized right hip replacement. Degenerative changes of the lower lumbar spine. Surgical staple line seen in the pelvis. XR/XR hip LT w [id number] IMPRESSION: Mild left hip osteoarthritis. Electronically signed by: Laura Barton MD 08/04/2025 02:56 PM EST
== END 2025-08-04 13:37 | disposition home or self-care (01) ==
LOC: HO.XRAY 13:36
PROVIDERS: PCP Internal Medicine; Visit Provider Internal Medicine
DX: Z00.00 Encounter for general adult medical examination without abnormal findings (principal); M25.552 Pain in left hip; R73.02 Impaired glucose tolerance (oral); E78.00 Pure hypercholesterolemia, unspecified; M81.0 Age-related osteoporosis without current pathological fracture; F41.1 Generalized anxiety disorder; N18.32 Chronic kidney disease, stage 3b; M54.50 Low back pain, unspecified; D69.6 Thrombocytopenia, unspecified
CPT/HCPCS: 73502; 96127; 99397

== ENCOUNTER → 2025-08-04 14:36 | Outpatient (BNV) | payer MEDICARE, SELFPAY | PROVIDERS: PCP Internal Medicine; Visit Provider Radiology Diagnostic Radiology | DX: M25.552 Pain in left hip (principal) | CPT/HCPCS: 73502 ==